=== PATIENT | male | born 1945 | race Caucasian/White ===

== ENCOUNTER → 2016-08-23 | Outpatient (CLI) | payer OTHER, MEDICARE ==
[~2016-08-23] MED LIST: ALBUAER2 INH; ALLO1TAB51 PO; ASPEC325 PO; ASPI81TA28 PO; BUME1TAB PO; CALCTAB5 PO; CLR10 PO; CRS20 PO; FRRG PO; GLUCTAB7 PO; HYDR-3419 PO; HYDR25TA4 PO; IRON1TAB4 PO; JNV100 PO; LSN40 PO; MAGN400T6 PO; METF-384 PO; METO1TAB70 PO; MULT-506 PO; NAPR1TAB9 PO; NRV/5 PO; OMEG10002 PO; PIOG1TAB20 PO; PLMIN90 IN; PRLSR20 PO; RANI300T PO; SILD100T PO; SRVDIN60 INH; WARF1TAB PO; WARF7.5T PO
--- NOTE | 2016-08-23 11:19 | DIAGNOSTIC IMAGING REPORT ---
CT OF THE CHEST WITHOUT IV CONTRAST CLINICAL HISTORY: Chronic obstructive pulmonary disease. Dyspnea on exertion. COMPARISON STUDY: Chest CT September 10, 2014. CT DOSE: 733.84 mGy.cm TECHNIQUE: Axial images of the chest were obtained without IV contrast. Images were reviewed in the axial, sagittal, and coronal planes. IV contrast was not administered for this examination. FINDINGS: A few mildly enlarged partially calcified mediastinal lymph nodes are similar to exam of September 10, 2014. An index prevascular node measures 1.1 cm in short axis diameter. An index subcarinal lymph node measures 1.3 cm. Note is made of asymmetric thickening of the medial wall of the right bronchus intermedius shown best on axial image 145 of 331. In retrospect, this may been present on prior exam. There is moderate coronary artery calcification. The gallbladder is surgically absent. Borderline splenomegaly is unchanged. Mild dilatation of the common bile duct is unchanged. A few prominent paraesophageal lymph nodes are unchanged. A small pericardial effusion is decreased in size when compared to study of September 10, 2014. The central airways are patent. No consolidation is identified to suggest pneumonia. Numerous tiny calcified and noncalcified subpleural nodules are unchanged since prior CT. These are benign. No new nodules are identified. No pneumothorax or pleural effusion is present. Linear and groundglass opacities within the lower lungs favor atelectasis. IMPRESSION: 1. Mild asymmetric wall thickening of the medial wall the right bronchus intermedius. In retrospect, this was likely present on prior exam of September 10, 2014. This could be further evaluated by bronchoscopy. 2. No acute intrathoracic findings. 3. Stable mild mediastinal lymphadenopathy which may be related to a prior granulomatous process. 4. Small pericardial effusion, decreased in size since prior exam. Electronically signed by: Darian Patel M.D. 08/23/2016 11:17 AM Dictated Date/Time: 08/23/2016 11:07 AM
== END | disposition home or self-care (01) ==
LOC: C.CTS 10:42
PROVIDERS: ATTEND Internal Medicine Critical Care Medicine
DX: R06.09 Other forms of dyspnea (principal)

== ENCOUNTER → 2016-09-01 | Outpatient (CLI) | payer OTHER, MEDICARE ==
[2016-09-01 17:13] LABS: INR 1.1 (0.9-1.1); PARTIAL THROMBOPLASTIN RATIO 1.2; PROTHROMBIN TIME (PATIENT) 11.9 SECONDS (9.0-12.0)
[2016-09-01 17:35] LABS: ALT/SGPT 29 U/L (12-78); BLOOD UREA NITROGEN 23 mg/dl (7-18); BUN/CREATININE RATIO 25.1 (10-20); CALCIUM 9.6 mg/dl (8.5-10.1); CARBON DIOXIDE 25 mmol/L (21-32); CHLORIDE 104 mmol/L (98-107); CREATININE 0.93 mg/dl (0.60-1.40); GLUCOSE 154 mg/dl (70-99); SODIUM 141 mmol/L (136-145)
[2016-09-01 17:38] LABS: ALB/GLOB RATIO 1.3 (0.9-2); ALKALINE PHOSPHATASE 66 U/L (45-117); AST/SGOT 15 U/L (15-37)
[2016-09-01 17:54] LABS: BASO % 0.2 %; BASO ABS # 0.01 K/uL (0-0.2); COMPLETE YES; HEMATOCRIT 42.2 % (42-52); IG% 0.3 %; LYMPH % 28.7 %; LYMPH ABS # 1.88 K/uL (1.2-3.4); MEAN CORPUSCULAR HEMOGLOBIN 29.9 pg (25-34); MEAN CORPUSCULAR HGB CONC 34.4 g/dl (32-36); MEAN PLATELET VOLUME 10.1 fL (7.4-10.4); MONO % 12.5 %; NEUT % 56.3 %; PLATELET COUNT 210 K/uL (130-400); RED BLOOD COUNT 4.85 M/uL (4.7-6.1); WHITE BLOOD COUNT 6.56 K/uL (4.8-10.8)
== END | disposition home or self-care (01) ==
LOC: C.LABBC 15:15
PROVIDERS: ATTEND Internal Medicine Critical Care Medicine
DX: R06.09 Other forms of dyspnea (principal)

== ENCOUNTER → 2016-09-06 | Day surgery (SDC) | payer OTHER, MEDICARE ==
[2016-09-06] VITALS (15 sets, daily range): BP systolic 123–164; BP diastolic 71–99; PULSE 68–83; TEMP 36.4–36.7; O2SAT 93–99; Ht 177.8 cm; Wt 109.0 kg
[~2016-09-06] VITALS: Ht 177.8 cm; Wt 109.0 kg
[~2016-09-06] MED LIST changes: +FENTANYL CITRATE 50 MCG/1 ML 20 ML AMP IV ONE; +FENTANYL CITRATE INJ 50 MCG/1 ML 2 ML VIAL IV ONE; +METOPROLOL SUCC 50MG EXT REL TAB PO STA; +MIDAZOLAM HCL 1 MG/ML 2ML VIAL IV ONE; +MIDAZOLAM HCL 5 MG/ML 1 ML VIAL IV ONE; +NURSING VERBAL MED ORDER ONE; +WARFARIN SOD 5 MG TAB PO ONE
--- NOTE | 2016-09-06 09:07 | Procedure Note ---
Pre-Mod Sedation Assessment General Date of Moderate Sedation: Sep 06, 2016. Vital Signs: Vital Signs Past 12 Hours Date Time Temp Pulse Resp B/P Pulse Ox O2 Delivery O2 Flow Rate FiO2 09/06/16 07:53 36.4 74 20 160/94 95 Room Air Review Cardiovascular: regular rate, rhythm, no edema, no gallop, no JVD, no murmur, normal peripheral pulses Abdomen: normal bowel sounds, non tender, soft, no organomegaly, no pulsatile mass, normal rectal exam, occult blood negative Lungs: chest non-tender, lungs clear, normal breath sounds, no respiratory distress, no accessory muscle use Airway Class: II Pre-Sedation Airway Assessment Oral Cavity: Capped Teeth, WNL Able to Visualize Vocal Cords: No Short Thick Neck: Yes Hx of Sleep Apnea: No Smoking Status: Former Smoker Mallampati Classification: Class II (Sft palate,uvula,fauces visib.) ASA Classification: Class II Procedure Planning Contraindications-for Mod Sed: None Yes Notes Patient was brought in for bronchoscopy was given to Versed and 25 g of fentanyl. At that time and he was noted to go into atrial fibrillation. Patient was hemodynamically stable saturating well showing no signs of compromise. EKG was obtained he had his chronic left bundle branch block but atrial fibrillation was noted. This EKG was reviewed/compared to previous ones. This is news onset atrial fibrillation. [facility] mental health program specialist Dr. Joseph Kang has been consultative.
--- NOTE | 2016-09-06 09:07 | History and Physical ---
History & Physical Date Sep 06, 2016. History of Present Illness The patient is a 71 year old male with complaints of Chronic cough: After reviewing patient's pulmonary function tests since 2003 there have been no dramatic changes and his most recent ones from 11/11/2015 only show mild obstructive ventilatory disease. He does have a diagnosis of laryngeal pharyngeal reflux which could create is issue of chronic cough but previous CT does show mucus impaction of the bronchus intermedius. At this time I suggest we move forward with bronchoscopy for evaluation of anatomical as well as possible microbiologic abnormalities. Past Medical/Surgical History Medical Problems: (1) CAD (coronary artery disease) (2) COPD, mild (3) Diabetes mellitus (4) Dyslipidemia (5) GERD (gastroesophageal reflux disease) (6) HTN (hypertension) (7) LBBB (left bundle branch block) (8) Left Knee DJD (9) SRAVANTHI (obstructive sleep apnea) Surgical Problems: (1) History of appendectomy (2) History of carpal tunnel release of both wrists (3) History of cataract extraction with lens replacement (4) History of cholecystectomy (5) Hx of arthroscopic knee surgery (6) Total knee replacement status Additional History Hepatic Disease: No Endocrine Disorder: No Kidney Disease: No Hypertension: Yes Heart Disease: Yes Bleeding Tendencies: No Infectious Diseases: No Allergies Coded Allergies: Sulfa Antibiotics (Verified Allergy, Intermediate, HIVES, 09/06/16) Home Medications Scheduled Albuterol (Ventolin), 2 PUFFS INH QID PRN Allopurinol (Allopurinol), 100 MG PO BID Amlodipine Besylate (Amlodipine Besylate), 5 MG PO QAM Aspirin (Aspirin Ec), 81 MG PO DAILY Budesonide (Inhaler) (Pulmicort Flexhaler), 1 PUFF IN BID Calcium (Caltrate), 600 MG PO QAM Rqvoftzaukh-Yjowlslcaqq-Ymd C- (Glucosamine Chondroitin), 1 TAB PO QAM Hydrochlorothiazide (Hctz), 25 MG PO QAM Iron W/ Vitamins (Geritol Complete), 1 TAB PO HS Lisinopril (Lisinopril), 40 MG PO QAM Magnesium Oxide (Mag-Ox), 400 MG PO HS Metformin Hcl (Glucophage), 1,000 MG PO BID Metoprolol Succinate (Toprol Xl), 200 MG PO QAM Multivitamin (Multivitamin), 1 TAB PO QAM Naproxen (Aleve), 220 MG PO HS Naproxen (Aleve), 440 MG PO QAM [place]-3 Fatty Acids (Fish Oil), 1 TAB PO BID Omeprazole (Prilosec), 20 MG PO BID Pioglitazone Hcl (Pioglitazone Hcl), 45 MG PO QAM Ranitidine Hcl (Zantac), 300 MG PO HS Rosuvastatin Calcium (Crestor), 20 MG PO QAM Salmeterol Xinafoate (Serevent Diskus), 2 PUFF INH BID Sildenafil Citrate (Viagra), 100 MG PO PRN Sitagliptin (Januvia), 100 MG PO QAM Scheduled PRN Loratadine (Claritin), 10 MG PO QAM PRN for PRN Physical Examination Skin: warm/dry, no rash Eyes: normal inspection, EOMI, sclerae normal ENT: normal ENT inspection, pharynx normal Head: normocephalic, atraumatic Neck: supple, no adenopathy, trachea midline Respiratory/Chest: lungs clear, normal breath sounds, no respiratory distress Cardiovascular: regular rate, rhythm, no edema, no murmur Abdomen / GI: normal bowel sounds Back: normal inspection Extremities: normal inspection Genitourinary - Male: normal male genitalia, normal phallus Neurologic/Psych: no motor/sensory deficits, alert, normal reflexes, oriented x 3 Diagnosis Chronic Cough ASA Classification: ASA Class II Plan of Treatment Bronchoscopy with BAL sent for evaluation
--- NOTE | 2016-09-06 10:30 | Procedure Note ---
Post-Moderate Sedation Plan General Date of Moderate Sedation Sep 06, 2016. Vital Signs: Vital Signs Past 12 Hours Date Time Temp Pulse Resp B/P Pulse Ox O2 Delivery O2 Flow Rate FiO2 09/06/16 10:15 81 18 149/94 93 Nasal Cannula 4.0 Mask 09/06/16 10:10 80 18 152/92 94 Nasal Cannula 4.0 Mask 09/06/16 10:05 83 18 135/81 95 Nasal Cannula 4.0 Mask 09/06/16 10:00 83 18 147/93 99 Mask 5.0 09/06/16 09:55 68 18 142/85 99 Mask 5.0 09/06/16 09:50 68 18 149/87 99 Mask 5.0 09/06/16 09:39 72 18 164/99 99 Mask 5.0 09/06/16 07:53 36.4 74 20 160/94 95 Room Air Review - Discharge Plan Post Moderate Sedation Plan: Patient was noted to go into atrial fibrillation at the beginning of the procedure. Bronchoscopy was not performed the patient was given 2 of Versed and 25 g of fentanyl. Patient is hemodynamically stable showing no signs of respiratory insufficiency. He has not have any active complaints at this time is for his chest pain or shortness of breath. The bronchoscopy was discontinued and Dr. Du Dickey from the cardiology department has been counseled.
--- NOTE | 2016-09-06 13:36 | Discharge Instructions ---
Discharge Instructions Admission Reason for Admission: Dyspnea, Copd Discharge Discharge Diagnosis / Problem: atrial fibrillation: Part of the procedure the patient went into atrial fib Discharge Goals Goal(s): Diagnostic testing Activity Recommendations Activity Limitations: resume your previous activity . Instructions / Follow-Up Instructions / Follow-Up At this time Dr. Delgado from the cardiology department has seen the patient. He gave the patient metoprolol, and 5 mg of Coumadin. Is also set up for repeat INR evaluation as well as cardiology follow-up for new onset atrial fibrillation. Current Hospital Diet Patient's current hospital diet: Discharge Diet Recommended Diet: Regular Diet Procedures Procedures Performed: No procedure performed is patient went into atrial fibrillation Pending Studies Studies pending at discharge: no (none) Medical Emergencies . Who to Call and When: Medical Emergencies: If at any time you feel your situation is an emergency, please call 911 immediately. . Non-Emergent Contact Non-Emergency issues call your: Solid Die Cutter, Social Worker Palliative Care Call Non-Emergent contact if: temperature is above 101.5 . . "Provider Documentation" section prepared by Chele Bello. VTE Core Measure Inpt VTE Proph given/why not?: Warfarin (Coumadin) (initiated by cardiology because of new onset atrial fibrillation)
--- NOTE | 2016-09-06 13:41 | CARDIOLOGY CONSULTATION ---
DATE OF CONSULTATION: 09/06/2016 PRIMARY HEATING TECHNICIAN: Jono Morejon DO. HISTORY OF PRESENT ILLNESS: Jackelin Lopez is a 71-year-old male seen in cardiology consultation per the request of Dr. Chele Bello for the evaluation of newly recognized atrial fibrillation. The patient presented for an outpatient bronchoscopy for followup of recent dyspnea. Recent cardiac evaluation included a nonischemic pharmacologic nuclear stress test in May 2016. The patient arrived today for the bronchoscopy. He had held his morning medications including metoprolol succinate 200 mg daily. He was being sedated for the bronchoscopy, and on the rhythm monitor, it was noted that he had an irregular rhythm. The procedure was terminated. A 12-lead EKG performed on 09/06/2016 at 10:05 a.m. revealed the presence of atrial fibrillation at 80 beats per minute. A left bundle branch block was present, which is a chronic finding. In comparison to a prior EKG performed as an outpatient at [facility] dated 07/13/2016, sinus rhythm had been noted in June with first degree AV block and left bundle branch block. I was asked to see the patient in order to determine next step of treatment and to arrange followup. An EKG was performed at 12:53 p.m. and confirmed that the atrial fibrillation was still present at 69 beats per minute. Atrial fibrillation was also present on his bedside monitor. The patient notes that his cough and exertional shortness of breath has been relatively unchanged over the last 2 months. He has no subjective sensation of palpitations. PAST MEDICAL HISTORY: 1. Coronary artery disease by cardiac catheterization in 2005 revealing branch vessel CAD with 80% stenosis of the first diagonal and luminal irregularities of the LAD and second diagonal with ectatic dilatation of the left circumflex and OM. The left posterolateral branch had a 40% stenosis and distal ectatic changes. 2. COPD. 3. Obstructive sleep apnea for which he is on CPAP. 4. Hypertension. 5. Dyslipidemia. 6. Diabetes. 7. Chronic left bundle branch block. PAST SURGICAL HISTORY: 1. Left knee replacement June 2015. 2. Carpal tunnel surgery. 3. Colonoscopy. 4. EGD. 5. Cataract extraction. 6. Cardiac catheterization as noted above. SOCIAL HISTORY: The patient is . He has 5 children. His spouse and his daughter are at the bedside keeping him company. He is a former smoker having quit in 1989, he smoked 1 pack per day for 3 years. He quit smokeless tobacco in 1971. FAMILY HISTORY: Father had a black lung. ALLERGIES: No known past history regarding the mother's history. COMPREHENSIVE REVIEW OF SYSTEMS: A 10-point review of systems reviewed and is negative with the exception of that noted above. In addition, the patient notes no recent problems with blood per rectum or with bleeding when he urinates. He has tripped in the past but has had no recent falls. No recent dizziness. PHYSICAL EXAMINATION: VITAL SIGNS: Temperature 36.6, heart rate 69, blood pressure 144/83, respiratory rate 18 breaths per minute, pulse oximetry 95% on room air. GENERAL APPEARANCE: Awake and oriented x3, no acute distress. HEENT: Extraocular muscles were intact. Pupils equal and reactive to light. NECK: No bruits or cervical lymphadenopathy. CARDIOVASCULAR: Irregular rhythm. No murmurs. ABDOMEN: Positive bowel sounds. Soft, nontender, nondistended. EXTREMITIES: No clubbing, cyanosis or edema. NEUROLOGIC: No focal deficits. DIAGNOSTIC DATA: EKG tracings performed on a serial basis as outlined above. Recent blood work performed on 09/01/2016 revealed a hemoglobin of 14.5, platelet count of 210. INR 1.1, PT 11.9, PTT 29.9. Sodium 141, BUN 23, creatinine 0.93, AST 15, ALT 19. FINAL IMPRESSION: A 71-year-old male: 1. Newly recognized atrial fibrillation, controlled ventricular rate, asymptomatic with no subjective symptoms of an irregular heartbeat. 2. Longstanding history of hypertension, medications include metoprolol succinate 200 mg daily, which was held this morning. 3. Recent dyspnea on exertion for which bronchoscopy had been planned today. 4. History of branch vessel coronary artery disease, nonischemic nuclear stress test 2015. 5. History of preserved left ventricular ejection fraction, chronic left bundle branch block. RECOMMENDATIONS: At present time, I recommend administering the patient's home dose of metoprolol succinate 200 mg daily, which had been held this morning. Given his atrial fibrillation plus stroke risk factors of age over 65, history of hypertension, history of diabetes, recommend stroke prophylaxis. We discussed proceeding with Coumadin versus the direct oral anticoagulant class of medications. Due to cost concerns, the patient elects to proceed with Coumadin which he had tolerated well after his knee replacement in the past. His INR was normal several days ago in preparation of the bronchoscopy, therefore we will start 5 mg of Coumadin. The patient is going to be referred to the [facility] anticoagulation clinic and will have a follow up INR, later this week. Case was discussed with Dr. Bello. I also discussed the case with Dr. Morejon in the office, and have requested follow up with our cardiology group with Dr. Morejon or perhaps a PA, if Dr. Morejon is unavailable in 1-2 weeks' time. LUIS ARMANDO
== END | disposition home or self-care (01) ==
LOC: C.ACU 07:03
PROVIDERS: ATTEND Internal Medicine Critical Care Medicine
DX: Z53.09 Procedure and treatment not carried out because of other contraindication (principal); I48.91 Unspecified atrial fibrillation; R05 Cough; K21.9 Gastro-esophageal reflux disease without esophagitis; I25.10 Atherosclerotic heart disease of native coronary artery without angina pectoris; J44.9 Chronic obstructive pulmonary disease, unspecified; E11.9 Type 2 diabetes mellitus without complications; E78.5 Hyperlipidemia, unspecified; I10 Essential (primary) hypertension; G47.33 Obstructive sleep apnea (adult) (pediatric); M17.12 Unilateral primary osteoarthritis, left knee; Z90.89 Acquired absence of other organs; Z90.49 Acquired absence of other specified parts of digestive tract; Z96.659 Presence of unspecified artificial knee joint; Z88.2 Allergy status to sulfonamides; Z79.82 Long term (current) use of aspirin

== ENCOUNTER → 2016-10-19 | Outpatient (CLI) | payer OTHER, MEDICARE ==
[~2016-10-19] MED LIST changes: -ASPEC325 PO; -FENTANYL CITRATE 50 MCG/1 ML 20 ML AMP IV ONE; -FENTANYL CITRATE INJ 50 MCG/1 ML 2 ML VIAL IV ONE; -FRRG PO; +METO-648 PO; -METO1TAB70 PO; -METOPROLOL SUCC 50MG EXT REL TAB PO STA; -MIDAZOLAM HCL 1 MG/ML 2ML VIAL IV ONE; -MIDAZOLAM HCL 5 MG/ML 1 ML VIAL IV ONE; -NURSING VERBAL MED ORDER ONE; -WARFARIN SOD 5 MG TAB PO ONE
--- NOTE | 2016-10-19 13:25 | DIAGNOSTIC IMAGING REPORT ---
ORBIT RADIOGRAPHS 3 VIEWS HISTORY: pre-MRI screening. COMPARISON: None FINDINGS: No radiopaque intraorbital foreign bodies are visualized. There is a tiny radiopaque foreign body within the right frontal scalp. There is a second radiopaque foreign body projected over the right inferior maxillary region. This is not visualized in the lateral view. IMPRESSION: No radiopaque foreign bodies identified within the orbits. Electronically signed by: Freddie Mccann M.D. 10/19/2016 1:23 PM Dictated Date/Time: 10/19/2016 1:22 PM
--- NOTE | 2016-10-19 14:31 | DIAGNOSTIC IMAGING REPORT ---
LUMBAR SPINE MRI HISTORY: Pain LUMBAR STENOSIS TECHNIQUE: Multiplanar multisequence MRI of the lumbar spine was performed without the use of contrast. COMPARISON: None. FINDINGS: For the purpose of the report the L5-S1 disc space will be located on axial image 23 of 25. Findings of considerable degenerative disc change L2-L3. There is reactive bone marrow edema of the inferior endplate of L2 as well as superior endplate of L3. This potentially represents posttraumatic deterioration, with discitis Unlikely L1-L2: No significant central canal or neural foraminal narrowing. L2-L3: Broad-based posterior extradural defect comprised primarily of disc material and less prominently of posterior osteophytic material. This creates mild anterior to posterior dimension narrowing of the spinal canal as well as significant bilateral foraminal stenotic change. There is no associated surrounding paravertebral soft tissue mass. L3-L4: Mild broad-based disc bulge. Minimal narrowing right neural foramina. L4-L5: Moderate multifactorial spinal stenosis. Mild narrowing neuroforamina bilaterally. L5-S1: Hypertrophic changes of posterior elements and facets creating transverse moderate narrowing of the spinal canal. Broad-based bulging disc is accentuated all findings with moderate to significant narrowing of the right neuroforamina. Left neural foramina is patent. IMPRESSION: 1. Severe degenerative disc change L2-L3 with reactive bone marrow edema of the adjacent vertebral endplates 2. Posterior extradural defect at L2-L3. Mild to moderate narrowing of the spinal canal as well as significant bilateral foraminal stenosis. 3. Moderate multifactorial spinal stenosis L4-L5 with mild narrowing of the neuroforamina bilaterally. 4. Transverse narrowing of the spinal canal L5-S1 secondary to hypertrophic change of the posterior elements. Mild broad-based disc bulge has accentuated all findings Electronically signed by: Isaiah Ward M.D. 10/19/2016 2:30 PM Dictated Date/Time: 10/19/2016 2:18 PM
== END | disposition home or self-care (01) ==
LOC: C.RADBC 12:55
PROVIDERS: ATTEND Orthopaedic Surgery Orthopaedic Surgery of the Spine
DX: M48.06 Spinal stenosis, lumbar region (principal); M47.816 Spondylosis without myelopathy or radiculopathy, lumbar region

== ENCOUNTER → 2016-10-28 | Day surgery (SDC) | payer OTHER, MEDICARE ==
[~2016-10-28] VITALS: Ht 177.8 cm; Wt 104.5 kg
[~2016-10-28] MED LIST changes: +DEXAMETHASONE SOD INJ 4 MG/ML VIAL ONE; +LIDOCAINE HCL 1% MPF 5 ML VIAL ONE
[2016-10-28 07:25] VITALS: Ht 177.8 cm; Wt 104.5 kg
--- NOTE | 2016-10-28 07:50 | History & Physical Bridge - SC ---
H&P Re-Evaluation Bridge Note: I have examined the patient, reviewed the History & Physical and in the interval since the performance of the History & Physical I have noted the following changes of clinical significance: No changes noted
[2016-10-28 08:10] VITALS: BP 152/82; PULSE 62; TEMP 36.6; O2SAT 95
--- NOTE | 2016-10-28 08:11 | Discharge Instructions ---
Discharge Instructions Date of Service Oct 28, 2016. Admission Reason for Admission: Lumbosacral Spondylosis Without Myelopathy Discharge Discharge Diagnosis / Problem: stenosis Discharge Goals Goal(s): Improve function Activity Recommendations Activity Limitations: resume your previous activity . Current Hospital Diet Patient's current hospital diet: Discharge Diet Recommended Diet: Regular Diet Procedures Procedures Performed: Facet Joinr Injections, Bilaterally L5-S1 Pending Studies Studies pending at discharge: no Medical Emergencies . Who to Call and When: Medical Emergencies: If at any time you feel your situation is an emergency, please call 911 immediately. . Non-Emergent Contact Non-Emergency issues call your: Surgeon . "Provider Documentation" section prepared by Roscoe Martínez. VTE Core Measure Inpt VTE Proph given/why not?: Treatment not indicated
--- NOTE | 2016-10-28 08:12 | [facility] Post Operative Brief Note ---
Immediate Operative Summary Operative Date Oct 28, 2016. Pre-Operative Diagnosis Low Back Pain w/ Lower Extremity Difficulty Post-Operative Diagnosis same Procedure(s) Performed Facet Joinr Injections, Bilaterally L5-S1 Surgeon Dr. Braden Martínez. Residential Property Consultant Surgeon(s) 0 Findings arthritis
--- NOTE | 2016-10-28 08:23 | OPERATIVE REPORT ---
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 POSTOPERATIVE DIAGNOSIS: Same. PROCEDURE: Included facet joint injections, lumbar spine L5-S1. SURGEON: Dr. Martínez. ANESTHETIC: Local. COMPLICATIONS: Zero. BLOOD LOSS: Zero. PROCEDURE: The patient was taken to the minor procedure room at the surgical center here at [facility], prepped and draped sterile. I advanced the 22 gauge spinal needle out to the facet joints bilaterally L5-S1. One mL of Decadron injected without incident. There were no apparent complications. Needle was withdrawn. The patient returned to PACU improved stable condition. I attest to the content of the Intraoperative Record and any orders documented therein. Any exceptio ns are noted below.
== END | disposition home or self-care (01) ==
LOC: X.SURG 06:31
PROVIDERS: ATTEND Orthopaedic Surgery Orthopaedic Surgery of the Spine
DX: M47.817 Spondylosis without myelopathy or radiculopathy, lumbosacral region (principal); I10 Essential (primary) hypertension; E11.9 Type 2 diabetes mellitus without complications; E78.5 Hyperlipidemia, unspecified; Z83.3 Family history of diabetes mellitus; Z96.659 Presence of unspecified artificial knee joint; Z98.890 Other specified postprocedural states

== ENCOUNTER → 2016-11-09 | Outpatient (CLI) | payer OTHER, MEDICARE ==
[~2016-11-09] MED LIST changes: -ASPI81TA28 PO; -DEXAMETHASONE SOD INJ 4 MG/ML VIAL ONE; -HYDR25TA4 PO; -IRON1TAB4 PO; -LIDOCAINE HCL 1% MPF 5 ML VIAL ONE; -NAPR1TAB9 PO; -NRV/5 PO; -RANI300T PO
[2016-11-09 11:07] LABS: BASO % 0.2 %; BASO ABS # 0.01 K/uL (0-0.2); COMPLETE YES; EOS % 1.9 %; HEMATOCRIT 45.2 % (42-52); IG% 0.3 %; LYMPH % 25.3 %; LYMPH ABS # 1.58 K/uL (1.2-3.4); MEAN CELL VOLUME 89.5 fL (80-100); MEAN CORPUSCULAR HEMOGLOBIN 29.7 pg (25-34); MEAN CORPUSCULAR HGB CONC 33.2 g/dl (32-36); MEAN PLATELET VOLUME 10.4 fL (7.4-10.4); MONO % 12.8 %; NEUT % 59.5 %; PLATELET COUNT 231 K/uL (130-400); RED BLOOD COUNT 5.05 M/uL (4.7-6.1); WHITE BLOOD COUNT 6.25 K/uL (4.8-10.8)
[2016-11-09 11:19] LABS: INR 2.4 (0.9-1.1); PARTIAL THROMBOPLASTIN RATIO 1.5; PROTHROMBIN TIME (PATIENT) 26.1 SECONDS (9.0-12.0)
[2016-11-09 14:42] LABS: ALT/SGPT 26 U/L (12-78); BLOOD UREA NITROGEN 20 mg/dl (7-18); BUN/CREATININE RATIO 22.2 (10-20); CARBON DIOXIDE 28 mmol/L (21-32); CHLORIDE 104 mmol/L (98-107); CREATININE 0.89 mg/dl (0.60-1.40); GLUCOSE 121 mg/dl (70-99); SODIUM 141 mmol/L (136-145)
[2016-11-09 14:45] LABS: ALB/GLOB RATIO 1.1 (0.9-2); ALKALINE PHOSPHATASE 66 U/L (45-117); AST/SGOT 14 U/L (15-37)
== END | disposition home or self-care (01) ==
LOC: C.LABBC 09:11
PROVIDERS: ATTEND Internal Medicine Critical Care Medicine
DX: J44.9 Chronic obstructive pulmonary disease, unspecified (principal); R05 Cough; R06.09 Other forms of dyspnea

== ENCOUNTER → 2016-11-22 | Day surgery (SDC) | payer OTHER, MEDICARE ==
[2016-11-22] VITALS (13 sets, daily range): BP systolic 125–190; BP diastolic 62–95; PULSE 55–67; TEMP 36.4–36.6; O2SAT 94–99; Ht 177.8 cm; Wt 90.0 kg
[~2016-11-22] VITALS: Ht 177.8 cm; Wt 90.0 kg
[~2016-11-22] MED LIST changes: +FENTANYL CITRATE INJ 50 MCG/1 ML 2 ML VIAL IV ONE; +FENTANYL CITRATE INJ 50 MCG/1 ML 2 ML VIAL IV SCH; +LIDOCAINE 4% W/AFRIN NASAL SOLN 4ML ONE; +LIDOCAINE HCL 2% LOCAL 50ML VIAL INFIL ONE; +MIDAZOLAM HCL 5 MG/ML 1 ML VIAL IV ONE; +MIDAZOLAM HCL 5 MG/ML 1 ML VIAL IV SCH; +NURSING VERBAL MED ORDER ONE
--- NOTE | 2016-11-22 06:41 | History and Physical ---
History & Physical Date November 22, 2016. Chief Complaint 71-year-old gentleman here for follow-up on chronic dyspnea with abnormal CT of the throax: History of Present Illness The patient is a 71 year old male with complaints of chronic dyspnea with abnormal CT of the throax: Patient has mild obstructive ventilatory disease with last FEV1 of 91% predicted (11/11/2015), atrial fibrillation rate controlled and on Coumadin. He continues to note dyspnea and has CT of the thorax notes thickening of the BI and mild mediastinal lymphadenopathy. Past Medical/Surgical History Medical Problems: (1) CAD (coronary artery disease) (2) COPD, mild (3) Diabetes mellitus (4) Dyslipidemia (5) GERD (gastroesophageal reflux disease) (6) HTN (hypertension) (7) LBBB (left bundle branch block) (8) Left Knee DJD (9) SRAVANTHI (obstructive sleep apnea) Surgical Problems: (1) History of appendectomy (2) History of carpal tunnel release of both wrists (3) History of cataract extraction with lens replacement (4) History of cholecystectomy (5) Hx of arthroscopic knee surgery (6) Total knee replacement status Additional History Hepatic Disease: No Endocrine Disorder: Yes Kidney Disease: No Hypertension: Yes Heart Disease: Yes (A-fib) Bleeding Tendencies: Yes (Coumadin treatment ) Infectious Diseases: No Allergies Coded Allergies: Sulfa Antibiotics (Verified Allergy, Intermediate, HIVES, 10/28/16) Home Medications Scheduled Albuterol (Ventolin), 2 PUFFS INH QID PRN Allopurinol (Allopurinol), 100 MG PO BID Budesonide (Inhaler) (Pulmicort Flexhaler), 1 PUFF IN BID Calcium (Caltrate), 600 MG PO QAM Vymnknxmkwn-Orutqlfrsai-Tjt C- (Glucosamine Chondroitin), 1 TAB PO QAM Lisinopril (Lisinopril), 40 MG PO QAM Magnesium Oxide (Mag-Ox), 400 MG PO HS Metformin Hcl (Glucophage), 1,000 MG PO BID Metoprolol Succinate (Toprol Xl), 200 MG PO QAM Multivitamin (Multivitamin), 1 TAB PO QAM [place]-3 Fatty Acids (Fish Oil), 1 TAB PO BID Omeprazole (Prilosec), 20 MG PO BID Pioglitazone Hcl (Pioglitazone Hcl), 45 MG PO QAM Rosuvastatin Calcium (Crestor), 20 MG PO QAM Salmeterol Xinafoate (Serevent Diskus), 2 PUFF INH BID Sildenafil Citrate (Viagra), 100 MG PO PRN Sitagliptin (Januvia), 100 MG PO QAM Warfarin Sodium (Coumadin), 1 TAB PO DAILY Scheduled PRN Hydrocodon/Acetaminophen 5MG/300MG (Vicodin (5MG/300MG)), 1 TAB PO Q4H PRN for Pain Loratadine (Claritin), 10 MG PO QAM PRN for PRN Miscellaneous Medications Bumetanide (Bumex), 1 MG PO Warfarin Sodium (Coumadin), 10 TAB PO Physical Examination Skin: warm/dry, no rash Eyes: normal inspection, EOMI, sclerae normal ENT: normal ENT inspection, pharynx normal Head: normocephalic, atraumatic Neck: supple, no adenopathy, trachea midline Respiratory/Chest: lungs clear, normal breath sounds, no respiratory distress Cardiovascular: + abnormal rate, + abnormal rhythm Abdomen / GI: normal bowel sounds, non tender Back: normal inspection Extremities: normal inspection, normal range of motion Neurologic/Psych: no motor/sensory deficits, alert, normal reflexes, oriented x [address] with associated FARRELL ASA Classification: ASA Class III Plan of Treatment Bronchoscopy with BAL
--- NOTE | 2016-11-22 09:24 | Procedure Note ---
Pre-Mod Sedation Assessment General Date of Moderate Sedation: November 22, 2016. Review Cardiovascular: no edema, no gallop, no JVD, no murmur, normal peripheral pulses, + irregularly irregular Abdomen: normal bowel sounds, non tender, soft, no organomegaly, no pulsatile mass, normal rectal exam, occult blood negative Lungs: chest non-tender, lungs clear, normal breath sounds, no respiratory distress, no accessory muscle use Pre-Sedation Airway Assessment Oral Cavity: WNL Able to Visualize Vocal Cords: Yes Short Thick Neck: Yes Hx of Sleep Apnea: Yes Smoking Status: Former Smoker Mallampati Classification: Class II ASA Classification: Class III Procedure Planning Contraindications-for Mod Sed: None Yes Notes The planned sedation has been discussed with the patient and consent obtained. I have identified the patient, determined the appropriateness of sedation and have assessed the patient immediately prior to the procedure. All medicine(s) and interventions are by my order.
--- NOTE | 2016-11-22 11:00 | Procedure Note ---
Post-Moderate Sedation Plan General Date of Moderate Sedation November 22, 2016. Vital Signs: Vital Signs Past 12 Hours Date Time Temp Pulse Resp B/P Pulse Ox O2 Delivery O2 Flow Rate FiO2 11/22/16 10:50 67 15 172/95 98 Room Air 4.0 Mask 11/22/16 10:45 67 15 169/95 98 Room Air 6.0 Mask 11/22/16 10:40 64 18 190/95 98 Room Air 6.0 Mask 11/22/16 10:35 65 19 170/95 98 Room Air 6.0 Mask 11/22/16 10:30 60 17 175/79 99 Room Air 6.0 Mask 11/22/16 10:25 67 16 125/88 97 Room Air 6.0 Mask 11/22/16 10:15 61 18 126/81 95 Room Air 6.0 Mask 11/22/16 09:07 36.6 61 18 163/62 95 Room Air Review - Discharge Plan Post Moderate Sedation Plan: On clinical assessment, the patient appears to have tolerated the conscious sedation without complications. Patient is recovering as anticipated. Patient will continue to be monitored by nursing and may be discharged when conscious sedation discharge criteria are met.
--- NOTE | 2016-11-22 11:00 | Bronchoscopy Procedure Note ---
Bronchoscopy Procedure Note Procedure: Bronchoscopy, conscious sedation, BAL RML Consent: Obtained through the patient placed into the chart Preprocedural diagnosis: abnormal CT thorax with dyspnea Postprocedural diagnosis: abnormal CT thorax with dyspnea Start time: 1034 End time: 1045 Total time: 10mins Analgesia: 2% liquid lidocaine: Via nebulizer 4% gel lidocaine: Via right naris 2% liquid lidocaine: Via bronchoscopy Sedation: Versed IV: 2mg Fentanyl IV: 50 g Procedure: The Olympus video bronchoscope was used for this procedure and initially passed through the right naris Right naris/posterior naris/posterior oropharynx: Anatomically within normal limits Glottis: Anatomically within normal limits but notable horse shoe anatomy Vocal cords: Proper abduction and abduction, anatomically within normal limits Subglottis: Anatomically within normal limits Trachea: with diffuse tracheal ring calcifications Adeline: Anatomically within normal limits Right bronchial tree: Right mainstem bronchus: Anatomically within normal limits Right upper lobe: Anatomically within normal limits Bronchus intermedius: diffuse bronchial ring calcifications with obstruction visually of the RML Right middle lobe: Anatomically within normal limits Right lower lobe: Anatomically within normal limits Findings: No significant findings noted Left bronchial tree: Left mainstem bronchus: Anatomically within normal limits Left upper lobe: Anatomically within normal limits Lingula: Anatomically within normal limits Left lower lobe: Anatomically within normal limits Findings: small bronchial ring calcifications at the take off of the LAURENT Bronchial alveolar lavage: 60cc RML EBL: none Complications: None Follow-up: [facility]
--- NOTE | 2016-11-22 11:02 | Discharge Instructions ---
Discharge Instructions Date of Service November 22, 2016. Admission Reason for Admission: Abn Ct; Dyspnea On Exertion; Copd; Chronic Cough Discharge Discharge Diagnosis / Problem: Tracheal bronchial ring calcifications Discharge Goals Goal(s): Diagnostic testing Activity Recommendations Activity Limitations: resume your previous activity . Instructions / Follow-Up Instructions / Follow-Up follow-up in the [facility] Current Hospital Diet Patient's current hospital diet: Discharge Diet Recommended Diet: Regular Diet Procedures Procedures Performed: Bronchoscopy with bronchial lavage of the right middle lobe and consicous sedation Pending Studies Studies pending at discharge: no Medical Emergencies . Who to Call and When: Medical Emergencies: If at any time you feel your situation is an emergency, please call 911 immediately. . Non-Emergent Contact Non-Emergency issues call your: Patch Setter Call Non-Emergent contact if: temperature is above 101.5 . . "Provider Documentation" section prepared by Chele Bello. . VTE Core Measure Inpt VTE Proph given/why not?: Warfarin (Coumadin)
== END | disposition home or self-care (01) ==
LOC: C.ACU 07:36
PROVIDERS: ATTEND Internal Medicine Critical Care Medicine
DX: R91.8 Other nonspecific abnormal finding of lung field (principal); J44.9 Chronic obstructive pulmonary disease, unspecified; I25.10 Atherosclerotic heart disease of native coronary artery without angina pectoris; E11.9 Type 2 diabetes mellitus without complications; K21.9 Gastro-esophageal reflux disease without esophagitis; E78.5 Hyperlipidemia, unspecified; I10 Essential (primary) hypertension; G47.33 Obstructive sleep apnea (adult) (pediatric); I48.91 Unspecified atrial fibrillation; Z79.01 Long term (current) use of anticoagulants

== ENCOUNTER → 2017-04-04 | Outpatient (CLI) | payer OTHER, MEDICARE ==
[~2017-04-04] MED LIST changes: -FENTANYL CITRATE INJ 50 MCG/1 ML 2 ML VIAL IV ONE; -FENTANYL CITRATE INJ 50 MCG/1 ML 2 ML VIAL IV SCH; -LIDOCAINE 4% W/AFRIN NASAL SOLN 4ML ONE; -LIDOCAINE HCL 2% LOCAL 50ML VIAL INFIL ONE; -METO-648 PO; +METO1TAB70 PO; -MIDAZOLAM HCL 5 MG/ML 1 ML VIAL IV ONE; -MIDAZOLAM HCL 5 MG/ML 1 ML VIAL IV SCH; -NURSING VERBAL MED ORDER ONE
[2017-04-04 13:36] LABS: HEMATOCRIT 41.1 % (42-52); MEAN CELL VOLUME 90.1 fL (80-100); MEAN CORPUSCULAR HEMOGLOBIN 30.7 pg (25-34); MEAN CORPUSCULAR HGB CONC 34.1 g/dl (32-36); MEAN PLATELET VOLUME 10.1 fL (7.4-10.4); PLATELET COUNT 266 K/uL (130-400); RED BLOOD COUNT 4.56 M/uL (4.7-6.1); WHITE BLOOD COUNT 5.85 K/uL (4.8-10.8)
== END | disposition home or self-care (01) ==
LOC: C.LABBC 11:03
PROVIDERS: ATTEND Orthopaedic Surgery Sports Medicine
DX: M25.469 Effusion, unspecified knee (principal); Z98.890 Other specified postprocedural states

== ENCOUNTER → 2017-04-06 | Outpatient (CLI) | payer OTHER, MEDICARE ==
[2017-04-06 17:22] LABS: SYNOVIAL FLUID APPEARANCE HAZY; SYNOVIAL FLUID COLOR YELLOW; SYNOVIAL FLUID MONONUC RELAT 60.5 %; SYNOVIAL FLUID POLYNUC RELAT 39.5 %
[2017-04-11 17:30] LABS: LYME DNA PCR CSF OR SYNOVIAL Not detected (Not Detected); LYME DNA SOURCE Synovial Fluid
== END | disposition home or self-care (01) ==
LOC: C.LABSPEC 13:51
PROVIDERS: ATTEND Orthopaedic Surgery Sports Medicine
DX: T84.89XA Other specified complication of internal orthopedic prosthetic devices, implants and grafts, initial encounter (principal); Y83.1 Surgical operation with implant of artificial internal device as the cause of abnormal reaction of the patient, or of later complication, without mention of misadventure at the time of the procedure

== ENCOUNTER 2019-05-31 11:10 | Inpatient (IN) ==
[2019-05-31] MEDS ORDERED: ASPIRIN CHEW 324 MG PO STA (12:11)
[2019-05-31 12:27] LABS: Basophils # (auto) 0.01 K/uL (0-0.2); Basophils % (auto) 0.2 %; Eosinophils # (auto) 0.05 K/uL (0-0.5); Eosinophils % (auto) 0.9 %; Hematocrit (blood only) 41.6 % (42-52); Hemoglobin 13.7 g/dL (14.0-18.0); Immature Granulocytes # (auto) 0.01 K/uL (0.00-0.02); Immature Granulocytes % (auto) 0.2 %; Lymphocytes # (auto) 1.33 K/uL (1.2-3.4); Lymphocytes % (auto) 22.7 %; Mean Corpuscular Hemoglobin 29.8 pg (25-34); Mean Corpuscular Hgb Conc 32.9 g/dL (32-36); Mean Corpuscular Volume 90.4 fL (80-100); Mean Platelet Volume 10.6 fL (7.4-10.4); Monocytes # (auto) 0.65 K/uL (0.11-0.59); Monocytes % (auto) 11.1 %; Neutrophils # (auto) 3.82 K/uL (1.4-6.5); Neutrophils % (auto) 64.9 %; Platelet Count 198 K/uL (130-400); White Blood Count 5.87 K/uL (4.8-10.8)
[2019-05-31] MEDS ORDERED: ALBUT/IPRATROP 3MG/0.5MG NEB 3 ML VIAL NEB STA (12:28)
[2019-05-31 12:36] LABS: Alanine Aminotransferase 32 U/L (12-78); Albumin Level 3.5 gm/dl (3.4-5.0); Aspartate Aminotransferase 21 U/L (15-37); BUN Creatinine Ratio 14.5 (10-20); Bilirubin Direct 0.2 mg/dl (0-0.2); Blood Urea Nitrogen 13 mg/dl (7-18); Carbon Dioxide 27 mmol/L (21-32); Chloride 105 mmol/L (98-107); Creatinine Clr Calc Pharmacy 82.9 ml/min; Est GFR (African American) 97.6; Est GFR (Non-African American) 84.2; Glucose 167 mg/dl (70-99); Lipase 87 U/L (73-393); Magnesium 1.6 mg/dl (1.8-2.4); Potassium 3.7 mmol/L (3.5-5.1); Sodium 140 mmol/L (136-145)
--- NOTE | 2019-05-31 12:36 | XRay Report ---
XR chest 1V portable HISTORY: 74 years-old Male Chest Pain acute atypical chest pain COMPARISON: Chest CT 08/23/2016 TECHNIQUE: Portable AP view of the chest FINDINGS: Cardiac silhouette is mildly enlarged. Mild bilateral hilar prominence appears unchanged. Patchy righ t greater than left bibasilar opacities are noted without pneumothorax, large pleural effusion or ove rt pulmonary edema. Ill-defined 2.7 cm opacity of the right lung base. Degenerative changes of the sh oulders and spine. Cholecystectomy. IMPRESSION: 1. Cardiomegaly without overt pulmonary edema. 2. Patchy right greater than left bibasilar opacities suggest atelectasis or pneumonitis. The above report was generated using voice recognition software. It may contain grammatical, syntax o r spelling errors. Electronically signed by: Shane Ackerman M.D. 05/31/2019 12:35 PM
[2019-05-31 12:41] LABS: D Dimer 210 ug/L FEU (0-500); Partial Thromboplastin Ratio 1.5
[2019-05-31 12:42] LABS: Alkaline Phosphatase 58 U/L (45-117); Bilirubin,Total 0.9 mg/dl (0.2-1); Total Protein 6.4 gm/dl (6.4-8.2); Troponin I < 0.015 ng/ml (0-0.045)
[2019-05-31 12:43] LABS: INR 5.3 (0.9-1.1)
[2019-05-31 12:49] LABS: Base Excess VBG 4.2 mEq/L; Oxygen Saturation VBG 70.9 %; pH VBG 7.46 (7.36-7.41)
[2019-05-31] MEDS ORDERED: FUROSEMIDE 40 MG/4 ML VIAL IV STA (13:03)
[2019-05-31] MEDS ORDERED: MAGNESIUM SULFATE / D5W 1 GM/100 ML BAG IV ONE (13:03)
--- NOTE | 2019-05-31 14:37 | History & Physical Report ---
Date of Service May 31, 2019 Assessment & Plan (1) Dyspnea on exertion: This is a 74-year-old with a PMH of paroxysmal atrial fibrillation on Coumadin, COPD, tracheobronchopathia osteochondroplastica, CAD, LBBB, DM II, SRAVANTHI on CPAP and other medical problems listed below who presents with progressive dyspnea on exertion x1 week. -Afebrile, hemodynamically stable. Oxygen saturation 95% on room air -No leukocytosis. BNP elevated thousand 227. Initial troponin negative -CXR with cardiomegaly without overt pulmonary edema. Patchy right greater than left bibasilar opacities suggest atelectasis or pneumonitis -Takes Bumex 1mg daily but no documented history of CHF -Given 40mg IV Lasix in ED. Strict I&Os, daily weight, monitor volume status closely. 2D echo ordered with routine cardiology consult -Monitor on telemetry, initially in rate controlled A-Fib. EKG unchanged. Trend troponin -Will cover with Doxycycline 100mg BID for possible aspiration pneumonitis (2) COPD, mild: Follows with [facility] -Recent PFTs in February 2019 showing mildly reduced FEV1/FVC ratio. Overall lung function has declined since PFTs in 2016 -No evidence of exacerbation on exam -Supplemental O2 PRN (3) Diabetes mellitus, type II: A1c of 7.3 in January 2019. Repeat a1c -Hold home agents -SSI while in-patient -BSG AC HS (4) HTN (hypertension): Normotensive -Continue amlodipine, Toprol, lisinopril (5) Paroxysmal A-fib: Initially in A Fib at 63 bpm -Continue Toprol -INR supratherapeutic at 5.3 on coumadin. Hold this afternoon's dose (6) CAD (coronary artery disease): No chest pain or EKG changes -Will trend troponin in setting of dyspnea on exertion -Continue statin, beta alfredito. Not on aspirin at home (7) GERD (gastroesophageal reflux disease): Continue PPI (8) Dyslipidemia: Continue statin (9) SRAVANTHI (obstructive sleep apnea): CPAP HS DVT Ppx: Supratherapeutic INR on coumadin. Will hold dose today. Code status: DNR per discussion with patient PCP: [place] Dispo: Admit to med tele. Plan to return home once medically stable. Patient seen in collaboration with Dr. Gallegos. Please see addendum. History of Present Illness Chief Complaint: Dyspnea on exertion Primary Care Provider: Roscoe Kaminski MD This is a 74-year-old with a PMH of paroxysmal atrial fibrillation on Coumadin, COPD, tracheobronchopathia osteochondroplastica, CAD, LBBB, DM II, SRAVANTHI on CPAP and other medical problems listed below who presents with progressive dyspnea on exertion x1 week. Patient went on a hunting trip 2 weeks ago in [place] and returned by 26 hour car ride. Once returned, he felt fatigued and unable to do his normal amount of daily activity. Later on that week, patient developed dyspnea on exertion and utilized his as needed home 2L O2. Today, patient was preparing to go hunting with his son when he felt poorly with worsening dyspnea on exertion and productive cough with clear sputum and was seen in clinic by Dr. Garcia. Denies any fever, chills, lightheadedness, near-syncope or visual changes. No chest pain, palpitations or wheezing. Denies any calf pain or swelling in distal extremities. Notes that he has gained 7 pounds since his hunting trip. 2D echo from September 2016 with moderate concentric LVH and preserved EF of 55-59%. Follows with [facility] pulmonary [facility] and underwent recent PFTs in February 2019 showing mildly reduced FEV1/FVC ratio. Overall lung function has declined since PFTs in 2016. Allergies Allergy/AdvReac Type Severity Reaction Status Date / Time Sulfa (Sulfonamide Allergy Intermediate HIVES Verified 05/20/19 11:45 Antibiotics) Home Medications Home Medications Medication Instructions Recorded Confirmed Type allopurinol 100 mg tablet 100 mg PO BID tab 03/08/19 05/31/19 History amlodipine 5 mg tablet 5 mg PO DAILY #90 tab 03/08/19 05/31/19 History bumetanide 1 mg tablet 1 mg PO DAILY tab 03/08/19 05/31/19 History calcium carbonate 600 mg calcium 600 mg PO BID tab 03/08/19 05/31/19 History (1,500 mg) tablet lisinopril 40 mg tablet 40 mg PO DAILY #90 tab 03/08/19 05/31/19 History magnesium oxide 400 mg (241.3 mg 400 mg PO DAILY tab 03/08/19 05/31/19 History magnesium) tablet metformin 1,000 mg tablet 1,000 mg PO BID #180 tab 03/08/19 05/31/19 History metoprolol succinate 200 mg 200 mg PO DAILY #90 tab 03/08/19 05/31/19 History tablet,extended release 24 hr omeprazole 20 mg capsule,delayed 20 mg PO DAILY cap 03/08/19 05/31/19 History release pioglitazone 45 mg tablet 45 mg PO DAILY tab 03/08/19 05/31/19 History rosuvastatin 20 mg tablet 20 mg PO DAILY #30 tab 03/08/19 05/31/19 History warfarin 7.5 mg tablet 7.5 mg PO DAILY@1600 #30 tab 03/08/19 05/31/19 History CPAP Machine #1 ea 03/11/19 05/31/19 Rx albuterol sulfate 90 mcg/actuation 2 puffs INHALATION Q4H PRN #18 gm 03/11/19 05/31/19 Rx aerosol inhaler miscellaneous medical supply #1 ea 03/11/19 05/31/19 Rx anrmsayceyc-pxdavlpub-nwe C-Mn 1 cap PO BID 05/31/19 05/31/19 History naproxen 187.5 mg PO DAILY PRN 05/31/19 05/31/19 History omega 4-tpy-deb-fish oil [Fish Oil] 1 cap PO DAILY 05/31/19 05/31/19 History sitagliptin [Januvia] 100 mg PO DAILY 05/31/19 05/31/19 History tobramycin 4 drp OPHTHALMIC (EYE) UD 05/31/19 05/31/19 History Past Med/Surg History Medical History Acute bronchitis Allergic rhinitis Chronic cough Diabetes mellitus Diabetes mellitus, type II (Chronic) Gout HTN (hypertension) Palpitations Paroxysmal A-fib Tracheobronchopathia-osteochondroplastica (Chronic) Surgical History History of appendectomy (Chronic) History of carpal tunnel release of both wrists (Chronic) History of cholecystectomy (Chronic) Hx of arthroscopic knee surgery (Chronic) "bilat by Dr. Thomas in 2001" Total knee replacement status (Chronic) "R total knee arthroplasty in 2011" Family History Other Heart disease Lung disease Social History Preferred Language: Ghanaian Communication Ability: Effective Tax Collector Required: No Beliefs That Will Affect Care: None Current Living Situation: Spouse Other Information That Helps Us Care for You: No Feels Safe at Home: Yes Safety Concerns: Feels Safe At This Time Smoking Status: Former smoker Do You Dip or Chew Tobacco: No ; Second Hand Exposure: No ; Tobacco Cessation Education Requested by Patient: No Hx Alcohol Use: No Hx Substance Use: No Review of Systems Review of Systems: At least ten systems reviewed and negative except as noted in the HPI. Physical Exam Physical Exam: General Appearance: WD/WN, vitals as above, NAD, sitting up in bed, pleasant, conversing easily Head: normocephalic, atraumatic Eyes: normal inspection, PERRL, conjunctivae normal, anicteric sclerae ENT: external ear and nose normal, oropharynx normal Neck: trachea midline, no thyromegaly normal visual inspection Respiratory: normal respiratory effort, bibasilar crackles, no wheeze or rhonchi. Normal insp/exp effort, no accessory muscle use Cardiovascular: Irregular rate and rhythm, no murmur appreciated, normal peripheral pulses, trace BLE edema. Vessels: no JVD Chest: normal inspection of chest Abdomen/GI: normal bowel sounds, soft, nontender, no hepatosplenomegaly Extremities/Musculoskelatal: no cyanosis or clubbing, extremities motor strength 5/5 Neurologic: PERRL, EOMI, accommodation nl, no face palsy, no dysarthria CN's II-XI intact bilaterally and moves all extremities Psychiatric: A+Ox3, euthymic affect Skin: no rashes, normal color, warm/dry Results & Data Vital Signs (Past 12 Hours) Vital Signs Temp Pulse Pulse Resp BP Pulse Ox 05/31/19 13:36 63 19 137/85 95 05/31/19 12:48 64 16 93 05/31/19 12:00 66 20 05/31/19 11:28 36.7 C 70 22 144/75 H 95 Laboratory Results Short CBC 05/31/19 05/31/19 05/31/19 Range/Units 11:57 11:57 11:57 WBC 5.87 (4.8-10.8) K/uL RBC 4.60 L (4.7-6.1) M/uL Hgb 13.7 L (14.0-18.0) g/dL Hct 41.6 L (42-52) % MCV 90.4 (80-100) fL MCH 29.8 (25-34) pg MCHC 32.9 (32-36) g/dL RDW Std Deviation 46.0 (36.4-46.3) fL RDW Coeff of Katie 14.0 (11.5-14.5) % Plt Count 198 (130-400) K/uL MPV 10.6 H (7.4-10.4) fL Immature Gran % (Auto) 0.2 % Neut % (Auto) 64.9 % Lymph % (Auto) 22.7 % Lewis % (Auto) 11.1 % Eos % (Auto) 0.9 % Baso % (Auto) 0.2 % Immature Gran # (Auto) 0.01 (0.00-0.02) K/uL Neut # (Auto) 3.82 (1.4-6.5) K/uL Lymph # (Auto) 1.33 (1.2-3.4) K/uL Lewis # (Auto) 0.65 H (0.11-0.59) K/uL Eos # (Auto) 0.05 (0-0.5) K/uL Baso # (Auto) 0.01 (0-0.2) K/uL PT 48.0 H (9.0-12.0) Seconds INR 5.3 H (0.9-1.1) APTT 41.0 H (21.0-31.0) Seconds PTT Ratio 1.5 D-Dimer 210 (0-500) ug/L FEU VBG pH (7.36-7.41) VBG pCO2 (38-50) mmHg VBG pO2 mmHg VBG HCO3 mmol/L VBG O2 Saturation % VBG Base Excess mEq/L Barometric Pressure mm/Hg Sodium 140 (136-145) mmol/L Potassium 3.7 (3.5-5.1) mmol/L Chloride 105 (98-107) mmol/L Carbon Dioxide 27 (21-32) mmol/L Anion Gap 8.0 (3-11) BUN 13 (7-18) mg/dl Creatinine 0.89 (0.6-1.4) mg/dl Est Cr Clr Drug Dosing 82.9 ml/min Est GFR ( Amer) 97.6 Est GFR (Non-Af Amer) 84.2 BUN/Creatinine Ratio 14.5 (10-20) Glucose 167 H (70-99) mg/dl Calcium 9.0 (8.5-10.1) mg/dl Magnesium 1.6 L (1.8-2.4) mg/dl Total Bilirubin 0.9 (0.2-1) mg/dl Direct Bilirubin 0.2 (0-0.2) mg/dl AST 21 (15-37) U/L ALT 32 (12-78) U/L Alkaline Phosphatase 58 (45-117) U/L Troponin I < 0.015 (0-0.045) ng/ml NT-Pro-B Natriuret Pep (0-900) pg/ml Total Protein 6.4 (6.4-8.2) gm/dl Albumin 3.5 (3.4-5.0) gm/dl Lipase 87 (73-393) U/L 05/31/19 05/31/19 Range/Units 11:57 12:39 WBC (4.8-10.8) K/uL RBC (4.7-6.1) M/uL Hgb (14.0-18.0) g/dL Hct (42-52) % MCV (80-100) fL MCH (25-34) pg MCHC (32-36) g/dL RDW Std Deviation (36.4-46.3) fL RDW Coeff of Katie (11.5-14.5) % Plt Count (130-400) K/uL MPV (7.4-10.4) fL Immature Gran % (Auto) % Neut % (Auto) % Lymph % (Auto) % Lewis % (Auto) % Eos % (Auto) % Baso % (Auto) % Immature Gran # (Auto) (0.00-0.02) K/uL Neut # (Auto) (1.4-6.5) K/uL Lymph # (Auto) (1.2-3.4) K/uL Lewis # (Auto) (0.11-0.59) K/uL Eos # (Auto) (0-0.5) K/uL Baso # (Auto) (0-0.2) K/uL PT (9.0-12.0) Seconds INR (0.9-1.1) APTT (21.0-31.0) Seconds PTT Ratio D-Dimer (0-500) ug/L FEU VBG pH 7.46 H (7.36-7.41) VBG pCO2 41 (38-50) mmHg VBG pO2 37 mmHg VBG HCO3 28 mmol/L VBG O2 Saturation 70.9 % VBG Base Excess 4.2 mEq/L Barometric Pressure 736.1 mm/Hg Sodium (136-145) mmol/L Potassium (3.5-5.1) mmol/L Chloride (98-107) mmol/L Carbon Dioxide (21-32) mmol/L Anion Gap (3-11) BUN (7-18) mg/dl Creatinine (0.6-1.4) mg/dl Est Cr Clr Drug Dosing ml/min Est GFR ( Amer) Est GFR (Non-Af Amer) BUN/Creatinine Ratio (10-20) Glucose (70-99) mg/dl Calcium (8.5-10.1) mg/dl Magnesium (1.8-2.4) mg/dl Total Bilirubin (0.2-1) mg/dl Direct Bilirubin (0-0.2) mg/dl AST (15-37) U/L ALT (12-78) U/L Alkaline Phosphatase (45-117) U/L Troponin I (0-0.045) ng/ml NT-Pro-B Natriuret Pep 1227 H (0-900) pg/ml Total Protein (6.4-8.2) gm/dl Albumin (3.4-5.0) gm/dl Lipase (73-393) U/L BMP 05/31/19 11:57 Sodium 140 Potassium 3.7 Chloride 105 Carbon Dioxide 27 BUN 13 Creatinine 0.89 Glucose 167 H Calcium 9.0 Cardiac Enzymes 05/31/19 Range/Units 11:57 Troponin I < 0.015 (0-0.045) ng/ml Liver Function 05/31/19 Range/Units 11:57 Total Bilirubin 0.9 (0.2-1) mg/dl Direct Bilirubin 0.2 (0-0.2) mg/dl AST 21 (15-37) U/L ALT 32 (12-78) U/L Alkaline Phosphatase 58 (45-117) U/L Albumin 3.5 (3.4-5.0) gm/dl Diagnostic Findings CXR: IMPRESSION: 1. Cardiomegaly without overt pulmonary edema. 2. Patchy right greater than left bibasilar opacities suggest atelectasis or pneumonitis. ECG Rhythm: atrial fibrillation Findings: + LBBB Change: no significant change Code Status & VTE Plan VTE Prophylaxis Plan VTE Prophylaxis will be ordered: Yes Supervising Physician Co-Signing Physician Notes Attending addendum: The patient was seen and examined in emergency room He has been complaining of exertional shortness of breath for the last 2 weeks Has cough without any phlegm, denies any fever and/or chills Has about 7 pounds weight gain but denies any edema of the legs Denies any chest pain and/or palpitation On examination Flushed faces No distress at rest Afebrile and hemodynamically stable Chest-occasional bibasilar crackles, no wheezing Abdomen-benign, nontender, no organomegaly bowel sounds present Extremities-trace edema on both sides PARCEL POST ORDER CLERK-alert, awake and oriented x3 Admission labs, imaging studies and EKG reviewed Likely has fluid overload but pneumonitis cannot be excluded Will get echo and cardiology evaluation Doubt any pulmonary embolism given INR more than 5 We will continue with Lasix and also add doxycycline for possible bronchitis with atypical bacterial Agree with assessment and plan as outlined above by HEATHER Phelps Dr
[2019-05-31] MEDS ORDERED: ACETAMINOPHEN 325 MG TAB PO PRN (15:05)
[2019-05-31] MEDS ORDERED: ONDANSETRON INJ 2 MG/ML 2 ML VIAL IV PRN (15:05)
[2019-05-31] MEDS ORDERED: POLYETHYLENE (MIRALAX) 17 GM PACK PO PRN (15:05)
[2019-05-31] MEDS ORDERED: GLUCOSE 10 TABS/TUBE PO PRN (15:32)
[2019-05-31] MEDS ORDERED: CARBOHYDRATES FOR HYPOGLYCEMIA PO PRN (15:32)
[2019-05-31] MEDS ORDERED: DEXTROSE 50% 50 ML SYRINGE IV PRN (15:32)
[2019-05-31] MEDS ORDERED: GLUCOSE 40% GEL 15 GM TUBE PO PRN (15:32)
[2019-05-31] MEDS ORDERED: GLUCAGON FOR INJ 1 MG VIAL SQ PRN (15:32)
[2019-05-31] MEDS ORDERED: ALBUTEROL HFA 8 GM INHALER INH PRN (16:01)
--- NOTE | 2019-05-31 16:32 | Emergency Department Note ---
Entered by Fazal Frazier acting as a scribe for Mynor Angela History of Present Illness General Chief complaint: Shortness of Breath/Dyspnea Stated complaint: sob Time Seen by Provider: 05/31/19 11:56 Source: patient Mode of arrival: ambulatory Limitations: no limitations History of Present Illness Onset (ago): day(s) 2 Location: chest Pain Consistency: + other (getting worse) Maximum Pain Intensity: 0 Quality: + other (episode) Associated symptoms: + shortness of breath and + other (restriction in his lungs, heavy phlegm) The patient is a 74 year old male who presents to the Emergency Room with complaints of an episode of shortness of breath. The patient notes that he has had difficulty breathing over the last couple weeks and that it has gotten worse. Patient reports his difficulty breathing is worse with exertion. He states he cannot walk across the room without feeling shortness of breath. He notes that he feels as though he has shortness of breath and heavy phlegm. The patient denies any hematuria or chest pain. He describes his pain as being restricted in his lungs with stomach pressure. The patient notes that he has had an appendectomy and cholecystectomy. He notes that he has an enlarged atrium and uses a CPAP ad night. He uses Albuterol as needed. Patient states he went to see his PCP about this shortness of breath who referred him to the emergency department today. Home Medications Home Medications Medication Instructions Recorded Confirmed Type allopurinol 100 mg tablet 100 mg PO BID tab 03/08/19 05/31/19 History amlodipine 5 mg tablet 5 mg PO DAILY #90 tab 03/08/19 05/31/19 History bumetanide 1 mg tablet 1 mg PO DAILY tab 03/08/19 05/31/19 History calcium carbonate 600 mg calcium 600 mg PO BID tab 03/08/19 05/31/19 History (1,500 mg) tablet lisinopril 40 mg tablet 40 mg PO DAILY #90 tab 03/08/19 05/31/19 History magnesium oxide 400 mg (241.3 mg 400 mg PO DAILY tab 03/08/19 05/31/19 History magnesium) tablet metformin 1,000 mg tablet 1,000 mg PO BID #180 tab 03/08/19 05/31/19 History metoprolol succinate 200 mg 200 mg PO DAILY #90 tab 03/08/19 05/31/19 History tablet,extended release 24 hr omeprazole 20 mg capsule,delayed 20 mg PO DAILY cap 03/08/19 05/31/19 History release pioglitazone 45 mg tablet 45 mg PO DAILY tab 03/08/19 05/31/19 History rosuvastatin 20 mg tablet 20 mg PO DAILY #30 tab 03/08/19 05/31/19 History warfarin 7.5 mg tablet 7.5 mg PO DAILY@1600 #30 tab 03/08/19 05/31/19 History CPAP Machine #1 ea 03/11/19 05/31/19 Rx albuterol sulfate 90 mcg/actuation 2 puffs INHALATION Q4H PRN #18 gm 03/11/19 05/31/19 Rx aerosol inhaler miscellaneous medical supply #1 ea 03/11/19 05/31/19 Rx eczvnwxjzlm-jzvqunivi-ikb C-Mn 1 cap PO BID 05/31/19 05/31/19 History naproxen 187.5 mg PO DAILY PRN 05/31/19 05/31/19 History omega 4-ygc-ryr-fish oil [Fish Oil] 1 cap PO DAILY 05/31/19 05/31/19 History sitagliptin [Januvia] 100 mg PO DAILY 05/31/19 05/31/19 History tobramycin 4 drp OPHTHALMIC (EYE) UD 05/31/19 05/31/19 History Allergies Allergy/AdvReac Type Severity Reaction Status Date / Time Sulfa (Sulfonamide Allergy Intermediate HIVES Verified 05/20/19 11:45 Antibiotics) Past Med/Surg History Medical History Acute bronchitis Allergic rhinitis Chronic cough Diabetes mellitus Diabetes mellitus, type II (Chronic) Gout HTN (hypertension) Palpitations Paroxysmal A-fib Tracheobronchopathia-osteochondroplastica (Chronic) Surgical History History of appendectomy (Chronic) History of carpal tunnel release of both wrists (Chronic) History of cholecystectomy (Chronic) Hx of arthroscopic knee surgery (Chronic) "bilat by Dr. Thomas in 2001" Total knee replacement status (Chronic) "R total knee arthroplasty in 2011" Family History Other Heart disease Lung disease Social History Preferred Language: Italian Communication Ability: Effective Telephone Interviewer Required: No Beliefs That Will Affect Care: None Current Living Situation: Spouse Other Information That Helps Us Care for You: No Feels Safe at Home: Yes Safety Concerns: Feels Safe At This Time Smoking Status: Former smoker Do You Dip or Chew Tobacco: No ; Second Hand Exposure: No ; Tobacco Cessation Education Requested by Patient: No Hx Alcohol Use: No Hx Substance Use: No Review of Systems See HPI for pertinent positives & negatives. and A total of 10 systems reviewed and were otherwise negative Physical Exam Vital Signs Vital Signs - 24 hr 05/31/19 11:28 05/31/19 12:00 05/31/19 12:11 Temperature 36.7 C Temperature Source Oral Pulse Rate 70 66 Pulse Rate [Apical] Respiratory Rate 22 20 Respiratory Effort / Characteristics Respiratory Depth Normal Blood Pressure 144/75 H Blood Pressure Mean 98 Blood Pressure Position Sitting Pulse Oximetry 95 Oxygen Delivery Method Room Air Room Air Sepsis Recent Fever Within 48 Hours No Sepsis New/Unexplained Change in Mental Status No Sepsis Action Taken by Nursing No Action Required 05/31/19 12:38 05/31/19 12:48 05/31/19 13:36 Temperature Temperature Source Pulse Rate 63 Pulse Rate [Apical] 64 Respiratory Rate 16 19 Respiratory Effort / Characteristics Non-Labored Spontaneous Respiratory Depth Blood Pressure 137/85 Blood Pressure Mean 106 Blood Pressure Position Pulse Oximetry 93 95 Oxygen Delivery Method Room Air Room Air Sepsis Recent Fever Within 48 Hours Sepsis New/Unexplained Change in Mental Status Sepsis Action Taken by Nursing Physical Exam GENERAL: He is oriented to person, place, and time. He appears well-developed and well-nourished. He does not appear distressed. ____ HENT: Exam performed. - Head: Normocephalic and atraumatic. - Right Ear: External ear normal. No mastoid tenderness. - Left Ear: External ear normal. No mastoid tenderness. - Mouth/Throat: The oropharynx is clear and moist. No trismus in the jaw. No dental abscesses or uvula swelling. No oropharyngeal exudate or tonsillar abscesses. ____ EYES: Conjunctivae and EOM are normal. Pupils are equal, round, and reactive to light. Right eye exhibits no discharge. Left eye exhibits no discharge. No scleral icterus. ____ NECK: Normal range of motion. Neck supple. No JVD present. No spinous process tenderness present. No carotid bruit present. No rigidity. No tracheal deviation and normal range of motion present. No Brudzinski's sign and no Kernig's sign noted. ____ CV: Normal rate, regular rhythm, normal heart sounds and intact distal pulses. There is no peripheral edema. Palpable radial pulses bue. ____ PULM/CHEST: Effort normal and breath sounds normal. No respiratory distress. No stridor. Rales of bases in lungs. - Chest Wall: He exhibits no tenderness. ____ ABD: The abdomen is soft. Bowel sounds are normal. He has no distension. No mass is present. There is no tenderness. There is no rebound, no guarding, no Adams's sign and no tenderness at McBurney's point. Rovsig negative MUSC/SKEL: Normal range of motion. There is no peripheral edema, tenderness or deformity. LYMPH: No cervical adenopathy. ____ NEURO: He is alert and oriented to person, place, and time. He has normal strength. No cranial nerve deficit or sensory deficit. Coordination and gait nor mal. GCS eye subscore is 4. GCS verbal subscore is 5. GCS motor subscore is 6. cerbellar tests wnl. ____ SKIN: Skin is warm and dry. He is not diaphoretic. ____ PSYCH: He has a normal mood and affect. His behavior is normal. Judgment and thought content normal. ____ Course Course 1156: The patient was evaluated in room B03B. A complete history and physical exam was performed. The EMR was reiviewed and found Type 2 diabetes, diabetic gastroparesis, COPD, LBBB, HTN, A fib 1330: Vitals are stable. The patients labs labs show mag 1.6, pro BNP 1227. The magnesium will be replaced in ED. Patient will be admitted for CHF for [facility] hospitalist team. I spoke with Lisa and she told her to admit to Dr. Gallegos. Administered Medications Discontinued Medications Albuterol (Duoneb) 3 ml NEB NOW STA Stop: 05/31/19 12:29 Last Admin: 05/31/19 12:47 Dose: 3 ml Documented by: [id number] Aspirin (Aspirin) 324 mg PO NOW STA Stop: 05/31/19 12:12 Last Admin: 05/31/19 12:42 Dose: 162 mg Documented by: [id number] Furosemide (Lasix) 40 mg IV NOW STA Stop: 05/31/19 13:04 Last Admin: 05/31/19 13:32 Dose: 40 mg Documented by: [id number] Magnesium Sulfate/Dextrose (Magnesium Sulfate / D5w) 1 gm in 100 mls @ 100 mls/hr IV ONE ONE Stop: 05/31/19 14:02 Last Infusion: 05/31/19 14:46 Dose: 0 mls/hr Documented by: [id number] Admin: 05/31/19 13:32 Dose: 100 mls/hr Documented by: [id number] Medical Decision Making Medical Records Attestation: I reviewed the patient's medical records. Home Medications Current Medication List: was personally reviewed by me Laboratory Data Attestation: I reviewed the patient's lab results. Result diagrams: 05/31/19 11:57 05/31/19 11:57 Lab Results 05/31/19 05/31/19 05/31/19 Range/Units 11:57 11:57 11:57 WBC 5.87 (4.8-10.8) K/uL RBC 4.60 L (4.7-6.1) M/uL Hgb 13.7 L (14.0-18.0) g/dL Hct 41.6 L (42-52) % MCV 90.4 (80-100) fL MCH 29.8 (25-34) pg MCHC 32.9 (32-36) g/dL RDW Std Deviation 46.0 (36.4-46.3) fL RDW Coeff of Katie 14.0 (11.5-14.5) % Plt Count 198 (130-400) K/uL MPV 10.6 H (7.4-10.4) fL Immature Gran % (Auto) 0.2 % Neut % (Auto) 64.9 % Lymph % (Auto) 22.7 % Forest % (Auto) 11.1 % Eos % (Auto) 0.9 % Baso % (Auto) 0.2 % Immature Gran # (Auto) 0.01 (0.00-0.02) K/uL Neut # (Auto) 3.82 (1.4-6.5) K/uL Lymph # (Auto) 1.33 (1.2-3.4) K/uL Forest # (Auto) 0.65 H (0.11-0.59) K/uL Eos # (Auto) 0.05 (0-0.5) K/uL Baso # (Auto) 0.01 (0-0.2) K/uL PT 48.0 H (9.0-12.0) Seconds INR 5.3 H (0.9-1.1) APTT 41.0 H (21.0-31.0) Seconds PTT Ratio 1.5 D-Dimer 210 (0-500) ug/L FEU VBG pH (7.36-7.41) VBG pCO2 (38-50) mmHg VBG pO2 mmHg VBG HCO3 mmol/L VBG O2 Saturation % VBG Base Excess mEq/L Barometric Pressure mm/Hg Sodium 140 (136-145) mmol/L Potassium 3.7 (3.5-5.1) mmol/L Chloride 105 (98-107) mmol/L Carbon Dioxide 27 (21-32) mmol/L Anion Gap 8.0 (3-11) BUN 13 (7-18) mg/dl Creatinine 0.89 (0.6-1.4) mg/dl Est Cr Clr Drug Dosing 82.9 ml/min Est GFR ( Amer) 97.6 Est GFR (Non-Af Amer) 84.2 BUN/Creatinine Ratio 14.5 (10-20) Glucose 167 H (70-99) mg/dl Calcium 9.0 (8.5-10.1) mg/dl Magnesium 1.6 L (1.8-2.4) mg/dl Total Bilirubin 0.9 (0.2-1) mg/dl Direct Bilirubin 0.2 (0-0.2) mg/dl AST 21 (15-37) U/L ALT 32 (12-78) U/L Alkaline Phosphatase 58 (45-117) U/L Troponin I < 0.015 (0-0.045) ng/ml NT-Pro-B Natriuret Pep (0-900) pg/ml Total Protein 6.4 (6.4-8.2) gm/dl Albumin 3.5 (3.4-5.0) gm/dl Lipase 87 (73-393) U/L 11/15/19 11/15/19 Range/Units 11:57 12:39 WBC (4.8-10.8) K/uL RBC (4.7-6.1) M/uL Hgb (14.0-18.0) g/dL Hct (42-52) % MCV (80-100) fL MCH (25-34) pg MCHC (32-36) g/dL RDW Std Deviation (36.4-46.3) fL RDW Coeff of Katie (11.5-14.5) % Plt Count (130-400) K/uL MPV (7.4-10.4) fL Immature Gran % (Auto) % Neut % (Auto) % Lymph % (Auto) % Forest % (Auto) % Eos % (Auto) % Baso % (Auto) % Immature Gran # (Auto) (0.00-0.02) K/uL Neut # (Auto) (1.4-6.5) K/uL Lymph # (Auto) (1.2-3.4) K/uL Forest # (Auto) (0.11-0.59) K/uL Eos # (Auto) (0-0.5) K/uL Baso # (Auto) (0-0.2) K/uL PT (9.0-12.0) Seconds INR (0.9-1.1) APTT (21.0-31.0) Seconds PTT Ratio D-Dimer (0-500) ug/L FEU VBG pH 7.46 H (7.36-7.41) VBG pCO2 41 (38-50) mmHg VBG pO2 37 mmHg VBG HCO3 28 mmol/L VBG O2 Saturation 70.9 % VBG Base Excess 4.2 mEq/L Barometric Pressure 736.1 mm/Hg Sodium (136-145) mmol/L Potassium (3.5-5.1) mmol/L Chloride (98-107) mmol/L Carbon Dioxide (21-32) mmol/L Anion Gap (3-11) BUN (7-18) mg/dl Creatinine (0.6-1.4) mg/dl Est Cr Clr Drug Dosing ml/min Est GFR ( Amer) Est GFR (Non-Af Amer) BUN/Creatinine Ratio (10-20) Glucose (70-99) mg/dl Calcium (8.5-10.1) mg/dl Magnesium (1.8-2.4) mg/dl Total Bilirubin (0.2-1) mg/dl Direct Bilirubin (0-0.2) mg/dl AST (15-37) U/L ALT (12-78) U/L Alkaline Phosphatase (45-117) U/L Troponin I (0-0.045) ng/ml NT-Pro-B Natriuret Pep 1227 H (0-900) pg/ml Total Protein (6.4-8.2) gm/dl Albumin (3.4-5.0) gm/dl Lipase (73-393) U/L Imaging Data Radiologist's Impression: Radiology results as stated below per my review and the radiologist's interpretation: XR chest 1V portable HISTORY: 74 years-old Male Chest Pain acute atypical chest pain COMPARISON: Chest CT 08/23/2016 TECHNIQUE: Portable AP view of the chest FINDINGS: Cardiac silhouette is mildly enlarged. Mild bilateral hilar prominence appears unchanged. Patchy right greater than left bibasilar opacities are noted without pneumothorax, large pleural effusion or overt pulmonary edema. Ill-defined 2.7 c m opacity of the right lung base. Degenerative changes of the shoulders and spine. Cholecystectomy. IMPRESSION: 1. Cardiomegaly without overt pulmonary edema. 2. Patchy right greater than left bibasilar opacities suggest atelectasis or pneumonitis. The above report was generated using voice recognition software. It may contain grammatical, syntax or spelling errors. Electronically signed by: Shane Ackerman M.D. 05/31/2019 12:35 PM ECG Data Indication: + chest pain Rate (beats per minute): 68 Rhythm: + atrial fibrillation ECG Intervals/blocks: + Left bundle branch block, + Normal QRS (162) and + Normal QT (QTc 493) ECG Findings: + Other (Sgarbosa negative) [facility] Narrative 1156: The patient was evaluated in room B03B. A complete history and physical exam was performed. The EMR was reiviewed and found Type 2 diabetes, diabetic gastroparesis, COPD, LBBB, HTN, A fib 1330: Vitals are stable. The patients labs labs show mag 1.6, pro BNP 1227. The magnesium will be replaced in ED. Patient will be admitted for CHF for [facility] Hospitalist team. I spoke with Lisa and she told her to admit to Dr. Gallegos. Impression & Plan Congestive heart failure, Hypomagnesemia Discharge Plan Visit Data *Final* Discharge Date/Time: 05/31/19 14:40 Chief Complaint: Shortness of Breath/Dyspnea Stated Complaint: sob ED Provider: Mynor Angela Discharge Problem: Congestive heart failure, Hypomagnesemia Patient Disposition: Admitted As Inpatient Discharge Instructions Interventions: ED Discharge Assessment Last Done: 05/31/19 14:40 Discharge Problem: Congestive heart failure Qualifiers: Heart failure type: unspecified Heart failure chronicity: acute Qualified Code(s): I50.9 - Heart failure, unspecified The scribe's documentation has been prepared under my direction and personally reviewed by me in its entirety. I confirm that the note above accurately reflects all work, treatment, procedures, and medical decision making performed by me.
[2019-05-31] MEDS: DOXYCYCLINE HYCLATE 100 MG CAP PO SCH ×2 (16:39→20:43)
[2019-05-31] MEDS: INSULIN ASPART 100 UNITS/ML 3 ML PEN SC SCH ×2 (17:40→20:41)
[2019-05-31] MEDS: CALCIUM CARBONATE 500 MG CHEWABLE TAB PO SCH (18:41)
[2019-05-31] MEDS: ALLOPURINOL 100 MG TAB PO SCH (20:43)
[2019-05-31] MEDS ORDERED: GLUCOSAMINE CHONDROIT VIT C MN PO SCH (21:00)
[2019-06-01] MEDS: CALCIUM CARBONATE 500 MG CHEWABLE TAB PO SCH ×2 (06:11→17:36)
[2019-06-01] MEDS: MAGNESIUM OXIDE 400 MG TAB PO SCH (06:11)
[2019-06-01 07:13] LABS: Hematocrit (blood only) 44.1 % (42-52); Hemoglobin 14.7 g/dL (14.0-18.0); Mean Corpuscular Hemoglobin 30.3 pg (25-34); Mean Corpuscular Hgb Conc 33.3 g/dL (32-36); Mean Corpuscular Volume 90.9 fL (80-100); Mean Platelet Volume 10.1 fL (7.4-10.4); Platelet Count 229 K/uL (130-400); RDW Coefficient of Variation 13.7 % (11.5-14.5); Red Blood Count 4.85 M/uL (4.7-6.1); White Blood Count 7.54 K/uL (4.8-10.8)
[2019-06-01 07:37] LABS: Prothrombin Time 36.4 Seconds (9.0-12.0)
[2019-06-01 07:41] LABS: INR 3.9 (0.9-1.1)
[2019-06-01 07:48] LABS: Estimated Average Glucose 171 mg/dl; Hemoglobin A1C 7.6 % (4.5-5.6)
[2019-06-01] MEDS: BUMETANIDE 1 MG TAB PO SCH (07:48)
[2019-06-01] MEDS: PANTOprazole 40 MG TAB PO SCH (07:48)
[2019-06-01] MEDS: AMLODIPINE BESYLATE 5 MG TAB PO SCH (07:49)
[2019-06-01] MEDS: LISINOPRIL 40 MG TAB PO SCH (07:49)
[2019-06-01] MEDS: ALLOPURINOL 100 MG TAB PO SCH ×2 (07:50→20:53)
[2019-06-01] MEDS: METOPROLOL SUCC 50MG EXT REL TAB PO SCH (07:51)
[2019-06-01] MEDS: DOXYCYCLINE HYCLATE 100 MG CAP PO SCH ×2 (07:52→20:53)
[2019-06-01 07:55] LABS: BUN Creatinine Ratio 13.7 (10-20); Calcium 9.5 mg/dl (8.5-10.1); Creatinine Clr Calc Pharmacy 86.2 ml/min; Est GFR (African American) 98.1; Est GFR (Non-African American) 84.6; Magnesium 1.9 mg/dl (1.8-2.4); Potassium 3.3 mmol/L (3.5-5.1)
[2019-06-01] MEDS ORDERED: POTASSIUM CHLORIDE 20 MEQ TABCR PO ONE (09:03)
[2019-06-01] MEDS: ROSUVASTATIN CALCIUM 20 MG TAB PO SCH (09:23)
[2019-06-01] MEDS: INSULIN ASPART 100 UNITS/ML 3 ML PEN SC SCH ×4 (09:26→20:51)
--- NOTE | 2019-06-01 12:11 | Cardiology Consultation ---
Date of Consultation June 01, 2019 Assessment & Plan (1) CAD (coronary artery disease): Will start aspirin 81 mg daily today Continue rosuvastatin for now we will likely need to increase dose prior to discharge (2) Dyspnea on exertion: His symptoms are very concerning for unstable angina and given his history of coronary artery disease by cardiac catheterization over 13 years ago I do believe further ischemic work-up is warranted at this time. I believe the most prudent course of action would be for direct visualization of his coronary anatomy by cardiac catheterization which will tentatively be planned for 06/03/2019. We will follow his INR closely and may need to be reversed. (3) LBBB (left bundle branch block): Chronic Nonspecific inferior ST segment changes (4) Paroxysmal A-fib: Currently normal sinus rhythm. His INR is supratherapeutic again will allow to trend down and possibly reverse if necessary for cardiac catheterization (5) Congestive heart failure: Diastolic dysfunction with normal LV systolic function does not examine his volume overload at this time We will follow volume status clinically History of Present Illness Reason for Consultation: dyspnea on exertion Requesting Physician: Dr. Del Cid Attending Physician: Roscoe Del Cid MD History of Present Illness It was my pleasure to see Mr. Lopez in consultation today June 01, 2019. As you know he is a very pleasant 74-year-old gentleman who routinely follows with Dr. Kang for cardiology practice. He presents to [facility] emergency department on 05/31/2016 with complaints of worsening shortness of breath. He states he recently returned from a hunting trip to [place] several weeks ago however upon returning he felt completely exhausted. He notes in particular his truck remained packed with gear for over a week for the energy to go 1 pack. He started having significant dyspnea with minimal exertion which gradually progressed. His shortness of breath progressed to the point where he woke this morning was supposed to go hunting but even getting out of bed and walking across the room made him short of breath. At that time he had his bring him in the emergency department. Upon arrival his initial ischemic work-up was unremarkable with an underlying left bundle branch block on EKG. He states he is now feeling better at rest but believes if he gets up just to walk across the room he will become dyspneic again. As per Dr. Dickey's office note of October 22, 2018: His past medical history is relevant for coronary artery disease with cardiac catheterization in 2005 revealing branch vessel CAD with an 80% stenosis of the first diagonal and luminal irregularities of the left anterior descending coronary artery and a second diagonal with an ectatic dilatation of the left circumflex and OM. The left posterior lateral branch had a 40% stenosis and distal act had changes for which medical management was recommended. A nuclear stress test performed in 2015 with findings of normal perfusion and normal LVEF of 68%. Allergies Allergy/AdvReac Type Severity Reaction Status Date / Time Sulfa (Sulfonamide Allergy Intermediate HIVES Verified 05/20/19 11:45 Antibiotics) Home Medications Home Medications Medication Instructions Recorded Confirmed Type allopurinol 100 mg tablet 100 mg PO BID tab 03/08/19 05/31/19 History amlodipine 5 mg tablet 5 mg PO DAILY #90 tab 03/08/19 05/31/19 History bumetanide 1 mg tablet 1 mg PO DAILY tab 03/08/19 05/31/19 History calcium carbonate 600 mg calcium 600 mg PO BID tab 03/08/19 05/31/19 History (1,500 mg) tablet lisinopril 40 mg tablet 40 mg PO DAILY #90 tab 03/08/19 05/31/19 History magnesium oxide 400 mg (241.3 mg 400 mg PO DAILY tab 03/08/19 05/31/19 History magnesium) tablet metformin 1,000 mg tablet 1,000 mg PO BID #180 tab 03/08/19 05/31/19 History metoprolol succinate 200 mg 200 mg PO DAILY #90 tab 03/08/19 05/31/19 History tablet,extended release 24 hr omeprazole 20 mg capsule,delayed 20 mg PO DAILY cap 03/08/19 05/31/19 History release pioglitazone 45 mg tablet 45 mg PO DAILY tab 03/08/19 05/31/19 History rosuvastatin 20 mg tablet 20 mg PO DAILY #30 tab 03/08/19 05/31/19 History warfarin 7.5 mg tablet 7.5 mg PO DAILY@1600 #30 tab 03/08/19 05/31/19 History CPAP Machine #1 ea 03/11/19 05/31/19 Rx albuterol sulfate 90 mcg/actuation 2 puffs INHALATION Q4H PRN #18 gm 03/11/19 05/31/19 Rx aerosol inhaler miscellaneous medical supply #1 ea 03/11/19 05/31/19 Rx huwmopfhusn-[id number]-ckz C-Mn 1 cap PO BID 05/31/19 05/31/19 History naproxen 187.5 mg PO DAILY PRN 05/31/19 05/31/19 History omega 1-asr-uzu-fish oil [Fish Oil] 1 cap PO DAILY 05/31/19 05/31/19 History sitagliptin [Januvia] 100 mg PO DAILY 05/31/19 05/31/19 History tobramycin 4 drp OPHTHALMIC (EYE) UD 05/31/19 05/31/19 History Patient History Medical History Acute bronchitis Allergic rhinitis Chronic cough Diabetes mellitus Diabetes mellitus, type II (Chronic) Gout HTN (hypertension) Palpitations Paroxysmal A-fib Tracheobronchopathia-osteochondroplastica (Chronic) Surgical History History of appendectomy (Chronic) History of carpal tunnel release of both wrists (Chronic) History of cholecystectomy (Chronic) Hx of arthroscopic knee surgery (Chronic) "bilat by Dr. Thomas in 2001" Total knee replacement status (Chronic) "R total knee arthroplasty in 2011" Family History Other Heart disease Lung disease Social History Preferred Language: Moldovan Communication Ability: Effective Digital Marketing Assistant Required: No Beliefs That Will Affect Care: None Current Living Situation: Spouse Other Information That Helps Us Care for You: No Feels Safe at Home: Yes Safety Concerns: Feels Safe At This Time Smoking Status: Former smoker Do You Dip or Chew Tobacco: No ; Second Hand Exposure: No ; Tobacco Cessation Education Requested by Patient: No Hx Alcohol Use: No Hx Substance Use: No Review of Systems Review of Systems: All systems reviewed & are unremarkable except as noted in HPI & below Physical Exam Physical Exam: General: Awake, alert and oriented x 3. No acute distress. HEENT: Normocephalic, atraumatic. Pupils equal, round and reactive to light and accommodation. Extraocular muscles are intact. Anicteric sclera. Moist mucous membranes. Neck: No JVD. No bruit. Cardiovascular: irregularly irregular, unable to appreciate murmur, rub or gallop. Pulmonary: Clear to auscultation bilaterally. No rales, rhonchi, or wheezing. Abdomen: Bowel sounds x 4, soft. No rebound, guarding or tenderness. No organomegaly. Extremities: No clubbing, cyanosis or edema. +2 pedal pulses bilaterally. Skin: Warm and dry. Results & Data Vital Signs (Past 12 Hours) Vital Signs Temp Pulse Pulse Resp BP Pulse Ox 06/01/19 11:29 36.7 C 54 L 16 145/82 H 94 06/01/19 07:39 36.6 C 64 16 165/91 H 94 06/01/19 03:45 36.5 C 66 18 165/90 H 93 06/01/19 03:35 58 L 16 91 06/01/19 01:17 63 16 94 06/01/19 00:31 36.4 C L 68 20 161/89 H 93 Laboratory Results Laboratory Results - last 24 hr 05/31/19 05/31/19 05/31/19 11:57 11:57 11:57 WBC 5.87 RBC 4.60 L Hgb 13.7 L Hct 41.6 L MCV 90.4 MCH 29.8 MCHC 32.9 RDW Std Deviation 46.0 RDW Coeff of Katie 14.0 Plt Count 198 MPV 10.6 H Immature Gran % (Auto) 0.2 Neut % (Auto) 64.9 Lymph % (Auto) 22.7 [place] % (Auto) 11.1 Eos % (Auto) 0.9 Baso % (Auto) 0.2 Immature Gran # (Auto) 0.01 Neut # (Auto) 3.82 Lymph # (Auto) 1.33 [place] # (Auto) 0.65 H Eos # (Auto) 0.05 Baso # (Auto) 0.01 PT 48.0 H INR 5.3 H APTT 41.0 H PTT Ratio 1.5 D-Dimer 210 VBG pH VBG pCO2 VBG pO2 VBG HCO3 VBG O2 Saturation VBG Base Excess Barometric Pressure Sodium 140 Potassium 3.7 Chloride 105 Carbon Dioxide 27 Anion Gap 8.0 BUN 13 Creatinine 0.89 Est Cr Clr Drug Dosing 82.9 Est GFR ( Amer) 97.6 Est GFR (Non-Af Amer) 84.2 BUN/Creatinine Ratio 14.5 Glucose 167 H POC Glucose Estimat Average Glucose Hemoglobin A1c Calcium 9.0 Magnesium 1.6 L Total Bilirubin 0.9 Direct Bilirubin 0.2 AST 21 ALT 32 Alkaline Phosphatase 58 Troponin I < 0.015 NT-Pro-B Natriuret Pep Total Protein 6.4 Albumin 3.5 Lipase 87 05/31/19 05/31/19 05/31/19 11:57 12:39 16:38 WBC RBC Hgb Hct MCV MCH MCHC RDW Std Deviation RDW Coeff of Katie Plt Count MPV Immature Gran % (Auto) Neut % (Auto) Lymph % (Auto) [place] % (Auto) Eos % (Auto) Baso % (Auto) Immature Gran # (Auto) Neut # (Auto) Lymph # (Auto) [place] # (Auto) Eos # (Auto) Baso # (Auto) PT INR APTT PTT Ratio D-Dimer VBG pH 7.46 H VBG pCO2 41 VBG pO2 37 VBG HCO3 28 VBG O2 Saturation 70.9 VBG Base Excess 4.2 Barometric Pressure 736.1 Sodium Potassium Chloride Carbon Dioxide Anion Gap BUN Creatinine Est Cr Clr Drug Dosing Est GFR ( Amer) Est GFR (Non-Af Amer) BUN/Creatinine Ratio Glucose POC Glucose 113 H Estimat Average Glucose Hemoglobin A1c Calcium Magnesium Total Bilirubin Direct Bilirubin AST ALT Alkaline Phosphatase Troponin I NT-Pro-B Natriuret Pep 1227 H Total Protein Albumin Lipase 05/31/19 05/31/19 05/31/19 17:48 20:23 23:58 WBC RBC Hgb Hct MCV MCH MCHC RDW Std Deviation RDW Coeff of Katie Plt Count MPV Immature Gran % (Auto) Neut % (Auto) Lymph % (Auto) [place] % (Auto) Eos % (Auto) Baso % (Auto) Immature Gran # (Auto) Neut # (Auto) Lymph # (Auto) [place] # (Auto) Eos # (Auto) Baso # (Auto) PT INR APTT PTT Ratio D-Dimer VBG pH VBG pCO2 VBG pO2 VBG HCO3 VBG O2 Saturation VBG Base Excess Barometric Pressure Sodium Potassium Chloride Carbon Dioxide Anion Gap BUN Creatinine Est Cr Clr Drug Dosing Est GFR ( Amer) Est GFR (Non-Af Amer) BUN/Creatinine Ratio Glucose POC Glucose 135 H Estimat Average Glucose Hemoglobin A1c Calcium Magnesium Total Bilirubin Direct Bilirubin AST ALT Alkaline Phosphatase Troponin I < 0.015 < 0.015 NT-Pro-B Natriuret Pep Total Protein Albumin Lipase 06/01/19 06/01/19 06/01/19 07:01 07:01 07:01 WBC 7.54 RBC 4.85 Hgb 14.7 Hct 44.1 MCV 90.9 MCH 30.3 MCHC 33.3 RDW Std Deviation 45.0 RDW Coeff of Katie 13.7 Plt Count 229 MPV 10.1 Immature Gran % (Auto) Neut % (Auto) Lymph % (Auto) [place] % (Auto) Eos % (Auto) Baso % (Auto) Immature Gran # (Auto) Neut # (Auto) Lymph # (Auto) [place] # (Auto) Eos # (Auto) Baso # (Auto) PT 36.4 H INR 3.9 H APTT PTT Ratio D-Dimer VBG pH VBG pCO2 VBG pO2 VBG HCO3 VBG O2 Saturation VBG Base Excess Barometric Pressure Sodium 138 Potassium 3.3 L Chloride 102 Carbon Dioxide 29 Anion Gap 7.0 BUN 12 Creatinine 0.88 Est Cr Clr Drug Dosing 86.2 Est GFR ( Amer) 98.1 Est GFR (Non-Af Amer) 84.6 BUN/Creatinine Ratio 13.7 Glucose 137 H POC Glucose Estimat Average Glucose Hemoglobin A1c Calcium 9.5 Magnesium 1.9 Total Bilirubin Direct Bilirubin AST ALT Alkaline Phosphatase Troponin I NT-Pro-B Natriuret Pep Total Protein Albumin Lipase 06/01/19 06/01/19 06/01/19 07:01 07:47 11:41 WBC RBC Hgb Hct MCV MCH MCHC RDW Std Deviation RDW Coeff of Katie Plt Count MPV Immature Gran % (Auto) Neut % (Auto) Lymph % (Auto) [place] % (Auto) Eos % (Auto) Baso % (Auto) Immature Gran # (Auto) Neut # (Auto) Lymph # (Auto) [place] # (Auto) Eos # (Auto) Baso # (Auto) PT INR APTT PTT Ratio D-Dimer VBG pH VBG pCO2 VBG pO2 VBG HCO3 VBG O2 Saturation VBG Base Excess Barometric Pressure Sodium Potassium Chloride Carbon Dioxide Anion Gap BUN Creatinine Est Cr Clr Drug Dosing Est GFR ( Amer) Est GFR (Non-Af Amer) BUN/Creatinine Ratio Glucose POC Glucose 153 H 167 H Estimat Average Glucose 171 Hemoglobin A1c 7.6 H Calcium Magnesium Total Bilirubin Direct Bilirubin AST ALT Alkaline Phosphatase Troponin I NT-Pro-B Natriuret Pep Total Protein Albumin Lipase Medications Administered Current Inpatient Medications Acetaminophen (Tylenol) 650 mg PO Q4H PRN PRN Reason: Pain or Fever Stop: 06/30/19 15:04 Albuterol (Ventolin Hfa) 2 puffs INH Q4H PRN PRN Reason: shortness of breath or wheezing Stop: 06/30/19 16:00 Allopurinol (Zyloprim) 100 mg PO BID REPLACED BY [facility] Stop: 06/30/19 20:59 Last Admin: 06/01/19 07:50 Dose: 100 mg Documented by: Amlodipine Besylate (Norvasc) 5 mg PO DAILY REPLACED BY [facility] Stop: 07/01/19 08:59 Last Admin: 06/01/19 07:49 Dose: 5 mg Documented by: Bumetanide (Bumex) 1 mg PO DAILY REPLACED BY [facility] Stop: 07/01/19 08:59 Last Admin: 06/01/19 07:48 Dose: 1 mg Documented by: Calcium Carbonate (Tums) 500 mg PO DAILY@0700,1900 REPLACED BY [facility] Stop: 06/30/19 18:59 Last Admin: 06/01/19 06:11 Dose: 500 mg Documented by: Dextrose (Dextrose 50%) 25 - 50 ml IV UD PRN; Protocol PRN Reason: Hypoglycemia Protocol Stop: 06/30/19 15:31 Doxycycline Hyclate (Vibramycin) 100 mg PO BID REPLACED BY [facility] Stop: 06/07/19 15:59 Last Admin: 06/01/19 07:52 Dose: 100 mg Documented by: Glucagon (Glucagen) 1 mg SQ UD PRN; Protocol PRN Reason: Hypoglycemia Protocol Stop: 06/30/19 15:31 Glucose (Dex4 Glucose) 4 - 8 tabs PO UD PRN; Protocol PRN Reason: Hypoglycemia Protocol Stop: 06/30/19 15:31 Glucose (Glucose 40%) 15 - 30 gm PO UD PRN; Protocol PRN Reason: Hypoglycemia Protocol Stop: 06/30/19 15:31 Insulin Aspart (Novolog Flexpen) 0 units SC ACHS REPLACED BY [facility] Stop: 06/30/19 16:29 Last Admin: 06/01/19 09:26 Dose: 6 units Documented by: Lisinopril (Zestril) 40 mg PO DAILY REPLACED BY [facility] Stop: 07/01/19 08:59 Last Admin: 06/01/19 07:49 Dose: 40 mg Documented by: Magnesium Oxide (Mag-Ox) 400 mg PO DAILY@0700 REPLACED BY [facility] Stop: 07/01/19 06:59 Last Admin: 06/01/19 06:11 Dose: 400 mg Documented by: Metoprolol Succinate (Toprol Xl) 200 mg PO DAILY REPLACED BY [facility] Stop: 07/01/19 08:59 Last Admin: 06/01/19 07:51 Dose: 200 mg Documented by: Miscellaneous (Carbohydrates For Hypoglycemia) 15 - 30 gm PO UD PRN PRN Reason: Hypoglycemia Protocol Stop: 06/30/19 15:31 Ondansetron HCl (Zofran) 4 mg IV Q6H PRN PRN Reason: Nausea Stop: 06/30/19 15:04 Pantoprazole Sodium (Protonix) 40 mg PO DAILY REPLACED BY [facility]; Protocol Stop: 07/01/19 08:59 Last Admin: 06/01/19 07:48 Dose: 40 mg Documented by: Polyethylene Glycol (Miralax Powder Packet) 17 gm PO DAILY PRN PRN Reason: Constipation Stop: 06/30/19 15:04 Rosuvastatin Calcium (Crestor) 20 mg PO DAILY REPLACED BY [facility] Stop: 07/01/19 08:59 Last Admin: 06/01/19 09:23 Dose: 20 mg Documented by: (1) Congestive heart failure Heart failure chronicity: acute Heart failure type: unspecified Qualified Code(s): I50.9 - Heart failure, unspecified
--- NOTE | 2019-06-01 16:51 | Hospitalist Progress Note ---
Date of Service June 01, 2019 Assessment & Plan (1) Dyspnea on exertion: Patient presented with dyspnea on exertion. Diagnostic considerations include congestive heart failure, myocardial ischemia, lower respiratory tract infection. Pulmonary embolism very unlikely with warfarin therapy and normal d-dimer. Specific problems are addressed below. (2) CAD (coronary artery disease): History of coronary artery disease. Cardiac cath 2006 80% stenosis 1st diagonal, luminal irregularities of LAD and 2nd diagonal. Medical management recommended. Nuclear stress test 2016 showed normal perfusion, LVEF 68%. Current symptoms of dyspnea on exertion and epigastric discomfort may be secondary to myocardial ischemia. EKG shows chronic atrial fibrillation, rate controlled, left bundle branch block, inferior and lateral ST and T wave abnormalities. Serum troponins negative x3. Echocardiogram did not show any wall motion abnormalities except for abnormal septal wall motion consistent with left bundle branch block pattern. Cardiology consulted. Continue metoprolol and statin. (3) Congestive heart failure: Patient experiencing dyspnea on exertion associated with weight gain. Chest x-ray showed cardiomegaly and suspected mild vascular congestion. BNP elevated. Echocardiogram showed normal left ventricular systolic function, but grade II diastolic dysfunction. Suspected acute on chronic left ventricular diastolic heart failure. Titrate diuretics. (4) Atrial fibrillation: Chronic atrial fibrillation, rate controlled on metoprolol. Anticoagulated on warfarin (being held because of supratherapeutic INR and possible need for cardiac catheterization). (5) Hypertension: Continue metoprolol, lisinopril, amlodipine. (6) Cough: Mild cough productive of clear sputum. No fever. Chest x-ray interpreted as possible bibasilar pneumonia, but clinical suspicion low. Continue doxycycline for possible tracheobronchitis. (7) COPD, mild: Stable despite possible bronchitis. Continue usual inhalers. (8) SRAVANTHI (obstructive sleep apnea): Continue CPAP. (9) DVT prophylaxis: On warfarin for chronic atrial fibrillation. INR supratherapeutic. Warfarin being held for possible cardiac catheterization. Add SCDs when INR subtherapeutic. (10) Discharge planning issues: Anticipated discharge to home. Family Medicine follow-up with Dr. Kaminski. Cardiology follow-up with Dr. Dickey. Subjective Recheck for multiple problems. Patient seen in their room around 1030 Presented to the ED with dyspnea on exertion. Recent onset of symptoms. No fever. Occasional cough productive of clear sputum. No chest pain, but notes intermittent epigastric discomfort, sometimes with exertion. Recent weight gain of 6 or 7 pounds. Review of Systems: Constitutional- no fever. Cardiac- as noted above. Pulmonary- as noted above. GI- no nausea, vomiting, diarrhea, melena, hematochezia. - no urinary symptoms. Otherwise, as noted above. Physical Exam Constitutional: no acute distress Eyes: + anicteric sclerae Respiratory: no respiratory distress Auscultation: lungs clear to auscultation bilaterally Cardiovascular: Rate/Rhythm: regular rate and regular rhythm Heart Sounds: no gallop, no murmur and no cardiac rub Vessels: + JVD Extremities: + edema (trace pretibial); no calf tenderness Gastrointestinal (Abdomen): normal bowel sounds, soft, nontender, no hepatosplenomegaly Skin: no rashes, warm and dry Psychiatric: Orientation: alert and oriented x 3 Results & Data Vital Signs (Past 12 Hours) Vital Signs Temp Pulse Resp BP Pulse Ox 06/01/19 15:47 36.6 C 56 L 16 140/82 95 06/01/19 11:29 36.7 C 54 L 16 145/82 H 94 06/01/19 07:39 36.6 C 64 16 165/91 H 94 Laboratory Results Laboratory Results - last 24 hr 05/31/19 05/31/19 05/31/19 16:38 17:48 20:23 WBC RBC Hgb Hct MCV MCH MCHC RDW Std Deviation RDW Coeff of Katie Plt Count MPV PT INR Sodium Potassium Chloride Carbon Dioxide Anion Gap BUN Creatinine Est Cr Clr Drug Dosing Est GFR ( Amer) Est GFR (Non-Af Amer) BUN/Creatinine Ratio Glucose POC Glucose 113 H 135 H Estimat Average Glucose Hemoglobin A1c Calcium Magnesium Troponin I < 0.015 05/31/19 06/01/19 06/01/19 23:58 07:01 07:01 WBC 7.54 RBC 4.85 Hgb 14.7 Hct 44.1 MCV 90.9 MCH 30.3 MCHC 33.3 RDW Std Deviation 45.0 RDW Coeff of Katie 13.7 Plt Count 229 MPV 10.1 PT INR Sodium 138 Potassium 3.3 L Chloride 102 Carbon Dioxide 29 Anion Gap 7.0 BUN 12 Creatinine 0.88 Est Cr Clr Drug Dosing 86.2 Est GFR ( Amer) 98.1 Est GFR (Non-Af Amer) 84.6 BUN/Creatinine Ratio 13.7 Glucose 137 H POC Glucose Estimat Average Glucose Hemoglobin A1c Calcium 9.5 Magnesium 1.9 Troponin I < 0.015 06/01/19 06/01/19 06/01/19 07:01 07:01 07:47 WBC RBC Hgb Hct MCV MCH MCHC RDW Std Deviation RDW Coeff of Katie Plt Count MPV PT 36.4 H INR 3.9 H Sodium Potassium Chloride Carbon Dioxide Anion Gap BUN Creatinine Est Cr Clr Drug Dosing Est GFR ( Amer) Est GFR (Non-Af Amer) BUN/Creatinine Ratio Glucose POC Glucose 153 H Estimat Average Glucose 171 Hemoglobin A1c 7.6 H Calcium Magnesium Troponin I 06/01/19 11:41 WBC RBC Hgb Hct MCV MCH MCHC RDW Std Deviation RDW Coeff of Katie Plt Count MPV PT INR Sodium Potassium Chloride Carbon Dioxide Anion Gap BUN Creatinine Est Cr Clr Drug Dosing Est GFR ( Amer) Est GFR (Non-Af Amer) BUN/Creatinine Ratio Glucose POC Glucose 167 H Estimat Average Glucose Hemoglobin A1c Calcium Magnesium Troponin I Diagnostic Findings Portable chest x-ray performed yesterday. Radiology interpretation: Cardiomegaly, bibasilar densities (infiltrates versus atelectasis). Suspect some degree of pulmonary vascular congestion (my interpretation). ECG Additional Comments: EKG performed this morning at 0659 revealed and demonstrated atrial fibrillation with PVCs, left bundle branch block morphology, ST depression in leads II, aVF, V6, biphasic T waves in leads I, II. (1) Congestive heart failure Heart failure chronicity: acute Heart failure type: unspecified Qualified Code(s): I50.9 - Heart failure, unspecified
[2019-06-01] MEDS ORDERED: IOVERSOL 100ml IV PRN (17:06)
--- NOTE | 2019-06-01 17:43 | CT Scan Report ---
ABDOMEN AND PELVIS CT WITH IV AND ORAL CONTRAST CT DOSE: 845.18 mGy.cm HISTORY: Acute left lower quadrant abdominal pain LLQ abdominal pain TECHNIQUE: Multiaxial CT images of the abdomen and pelvis were performed following the IV administrat ion of 94 cc of Optiray 320 and oral contrast. A dose lowering technique was utilized adhering to th e principles of ALARA. COMPARISON STUDY: Chest CT 08/23/2016 FINDINGS: Small right pleural effusion with dependent right basilar consolidation suggestive of compressive ate lectasis. Linear metallic density structure noted within the right pleural space. Trace left pleural effusion with minimal left basilar atelectasis. No gross pneumoperitoneum or pneumatosis. The imaged inferior cardiac chambers are moderately enlarged. Trace pericardial effusion. Cholecystectomy.. Mild intrahepatic and extrahepatic biliary ductal dilation is likely a postsurgical basis. Suggestion of hepatic steatosis. Otherwise unremarkable liver. Spleen is enlarged, 16.1 cm. M oderate to extensive generalized pancreatic atrophy. 7 mm cystic lesion of the pancreatic tail on agustin ge 103 series 3 is nonspecific however statistically favors a sidebranch IPMN. Unremarkable left adre nal gland. Coarse calcifications the right adrenal gland are noted. Mild nonspecific bilateral perine phric stranding. There are a few bilateral renal hypodensities suggestive of probable cysts. Nonobstr ucting 3 mm calculus of the interpolar right kidney. No ureteral calculi or obstructive uropathy. Mod erate circumferential wall thickening of the urinary bladder with partial distention. Prostamegaly. S mall right and moderate left fat filled inguinal hernias. Extensive calcified plaque of the abdominal aorta without aneurysm. Pathologically enlarged 2.5 x 3.4 cm periaortic lymph node on image 216 seri es 3. No additional pathologic adenopathy identified prominent periportal lymph nodes are present. No bowel obstruction. Extensive colonic diverticulosis. Moderate wall thickening of the proximal sigm oid colon is noted with pericolonic stranding and trace free fluid centered around inflamed diverticu lum on image 283 series 3. No evidence of perforation or drainable fluid collection. Nonvisualization of the appendix. Degenerative changes of the spine, pelvis and hips. IMPRESSION: 1. Findings compatible with acute uncomplicated sigmoid diverticulitis. No evidence of perforation or drainable fluid collection. 2. No bowel obstruction or pneumoperitoneum. 3. Nonobstructing right nephrolithiasis. 4. Prostamegaly with suggestion of chronic bladder outlet obstruction. 5. Indeterminate pathologically enlarged periaortic lymph node measures 2.5 x 3.4 cm. Follow-up is ne eded to exclude progressive abnormality. 6. Additional findings as above. Electronically signed by: Shane Ackerman M.D. 06/01/2019 5:42 PM
--- NOTE | 2019-06-01 20:04 | Communication Note ---
Date of Service: June 01, 2019 Patient developed LLQ pain this afternoon, similar to previous episode. CT- sigmoid diverticulitis without perforation. Bowel rest. IV ampicillin / sulbactam.
[2019-06-01] MEDS ORDERED: PIPERACILL/TAZOBAC CONSULT ACTIVE PRN (20:05)
[2019-06-01] MEDS ORDERED: PIPERACILLIN/TAZOBACTAM 3.375 GM in DEXTROSE 5% 100 ML IV ONE (20:30)
[2019-06-02] MEDS: PIPERACILLIN/TAZOBACTAM 3.375 GM in DEXTROSE 5% 100 ML IV SCH ×3 (02:11→17:59)
[2019-06-02] MEDS: CALCIUM CARBONATE 500 MG CHEWABLE TAB PO SCH ×2 (06:25→18:00)
[2019-06-02] MEDS: MAGNESIUM OXIDE 400 MG TAB PO SCH (06:26)
[2019-06-02 07:04] LABS: Hematocrit (blood only) 39.3 % (42-52); Hemoglobin 13.3 g/dL (14.0-18.0); Mean Corpuscular Hemoglobin 30.2 pg (25-34); Mean Corpuscular Hgb Conc 33.8 g/dL (32-36); Mean Corpuscular Volume 89.1 fL (80-100); Mean Platelet Volume 9.5 fL (7.4-10.4); Platelet Count 206 K/uL (130-400); RDW Coefficient of Variation 13.7 % (11.5-14.5); RDW Standard Deviation 44.8 fL (36.4-46.3); Red Blood Count 4.41 M/uL (4.7-6.1); White Blood Count 7.67 K/uL (4.8-10.8)
[2019-06-02 07:10] LABS: Prothrombin Time 28.1 Seconds (9.0-12.0)
[2019-06-02 07:31] LABS: BUN Creatinine Ratio 12.2 (10-20); Calcium 9.2 mg/dl (8.5-10.1); Creatinine Clr Calc Pharmacy 94.6 ml/min; Magnesium 1.8 mg/dl (1.8-2.4); Potassium 3.3 mmol/L (3.5-5.1)
[2019-06-02] MEDS ORDERED: POTASSIUM CHLORIDE 20 MEQ TABCR PO ONE (07:48)
[2019-06-02] MEDS: DOXYCYCLINE HYCLATE 100 MG CAP PO SCH ×2 (08:02→20:38)
[2019-06-02] MEDS: LISINOPRIL 40 MG TAB PO SCH (08:03)
[2019-06-02] MEDS: METOPROLOL SUCC 50MG EXT REL TAB PO SCH (08:03)
[2019-06-02] MEDS: ROSUVASTATIN CALCIUM 20 MG TAB PO SCH (08:04)
[2019-06-02] MEDS: BUMETANIDE 1 MG TAB PO SCH (08:04)
[2019-06-02] MEDS: AMLODIPINE BESYLATE 5 MG TAB PO SCH (08:04)
[2019-06-02] MEDS: ALLOPURINOL 100 MG TAB PO SCH ×2 (08:04→20:37)
[2019-06-02] MEDS: PANTOprazole 40 MG TAB PO SCH (08:05)
[2019-06-02] MEDS: INSULIN ASPART 100 UNITS/ML 3 ML PEN SC SCH ×4 (08:07→20:38)
--- NOTE | 2019-06-02 11:19 | Cardiology Progress Note ---
Date of Service June 02, 2019 Assessment & Plan (1) CAD (coronary artery disease): Will start aspirin 81 mg daily today Continue rosuvastatin for now we will likely need to increase dose prior to discharge (2) Dyspnea on exertion: His symptoms are very concerning for unstable angina and given his history of coronary artery disease by cardiac catheterization over 13 years ago I do believe further ischemic work-up is warranted at this time. I believe the most prudent course of action would be for direct visualization of his coronary anatomy by cardiac catheterization which will tentatively be planned for 06/03/2019. He has been made NPO after midnight. Patient is in agreement with plan. His INR is 3 today, will give small dose of vitamin k, 2.5mg po, now. Ideally would like INR <2.5 for radial access and <2 for possible groin access (3) LBBB (left bundle branch block): Chronic Nonspecific inferior ST segment changes (4) Paroxysmal A-fib: stable will resume coumadin s/p cath (5) Congestive heart failure: Diastolic dysfunction with normal LV systolic function does not examine his volume overload at this time We will follow volume status clinically Subjective Pt seen and examined, events of overnight reviewed. States abdominal pain has improved, no difficulty lying still at this point. Denies cp, sob, palpitations, lightheadedness or dizziness. Has not ambulated much. tele reviewed: afib rate controlled with underlying LBBB pattern Review of Systems Review of Systems: All systems reviewed & are unremarkable except as noted in HPI & below Physical Exam Physical Exam: General: Awake, alert and oriented x 3. No acute distress. HEENT: Normocephalic, atraumatic. Pupils equal, round and reactive to light and accommodation. Extraocular muscles are intact. Anicteric sclera. Moist mucous membranes. Neck: No JVD. No bruit. Cardiovascular: irregularly irregular, unable to appreciate murmur, rub or gallop. Pulmonary: Clear to auscultation bilaterally. No rales, rhonchi, or wheezing. Abdomen: Bowel sounds x 4, soft. No rebound, guarding or tenderness. No organomegaly. Extremities: No clubbing, cyanosis or edema. +2 pedal pulses bilaterally. Skin: Warm and dry. Results & Data Vital Signs (Past 12 Hours) Vital Signs Temp Pulse Resp BP Pulse Ox 06/02/19 11:11 36.4 C L 74 16 134/73 92 06/02/19 07:30 36.7 C 70 16 151/79 H 93 06/02/19 04:34 36.7 C 65 20 146/86 H 94 Laboratory Results Laboratory Results - last 24 hr 06/01/19 06/01/19 06/01/19 11:41 17:16 20:23 WBC RBC Hgb Hct MCV MCH MCHC RDW Std Deviation RDW Coeff of Katie Plt Count MPV PT INR Sodium Potassium Chloride Carbon Dioxide Anion Gap BUN Creatinine Est Cr Clr Drug Dosing Est GFR ( Amer) Est GFR (Non-Af Amer) BUN/Creatinine Ratio Glucose POC Glucose 167 H 93 142 H Calcium Magnesium 06/02/19 06/02/19 06/02/19 06:49 06:49 06:49 WBC 7.67 RBC 4.41 L Hgb 13.3 L Hct 39.3 L MCV 89.1 MCH 30.2 MCHC 33.8 RDW Std Deviation 44.8 RDW Coeff of Katie 13.7 Plt Count 206 MPV 9.5 PT 28.1 H INR 3.0 H Sodium 139 Potassium 3.3 L Chloride 103 Carbon Dioxide 28 Anion Gap 7.0 BUN 10 Creatinine 0.80 Est Cr Clr Drug Dosing 94.6 Est GFR ( Amer) 102.0 Est GFR (Non-Af Amer) 88.0 BUN/Creatinine Ratio 12.2 Glucose 140 H POC Glucose Calcium 9.2 Magnesium 1.8 06/02/19 07:50 WBC RBC Hgb Hct MCV MCH MCHC RDW Std Deviation RDW Coeff of Katie Plt Count MPV PT INR Sodium Potassium Chloride Carbon Dioxide Anion Gap BUN Creatinine Est Cr Clr Drug Dosing Est GFR ( Amer) Est GFR (Non-Af Amer) BUN/Creatinine Ratio Glucose POC Glucose 138 H Calcium Magnesium Medications Administered Current Inpatient Medications Acetaminophen (Tylenol) 650 mg PO Q4H PRN PRN Reason: Pain or Fever Stop: 06/30/19 15:04 Albuterol (Ventolin Hfa) 2 puffs INH Q4H PRN PRN Reason: shortness of breath or wheezing Stop: 06/30/19 16:00 Allopurinol (Zyloprim) 100 mg PO BID [facility] Stop: 06/30/19 20:59 Last Admin: 06/02/19 08:04 Dose: 100 mg Documented by: Amlodipine Besylate (Norvasc) 5 mg PO DAILY [facility] Stop: 07/01/19 08:59 Last Admin: 06/02/19 08:04 Dose: 5 mg Documented by: Bumetanide (Bumex) 1 mg PO DAILY [facility] Stop: 07/01/19 08:59 Last Admin: 06/02/19 08:04 Dose: 1 mg Documented by: Calcium Carbonate (Tums) 500 mg PO DAILY@0700,1900 [facility] Stop: 06/30/19 18:59 Last Admin: 06/02/19 06:25 Dose: 500 mg Documented by: Dextrose (Dextrose 50%) 25 - 50 ml IV UD PRN; Protocol PRN Reason: Hypoglycemia Protocol Stop: 06/30/19 15:31 Doxycycline Hyclate (Vibramycin) 100 mg PO BID [facility] Stop: 06/07/19 15:59 Last Admin: 06/02/19 08:02 Dose: 100 mg Documented by: Glucagon (Glucagen) 1 mg SQ UD PRN; Protocol PRN Reason: Hypoglycemia Protocol Stop: 06/30/19 15:31 Glucose (Dex4 Glucose) 4 - 8 tabs PO UD PRN; Protocol PRN Reason: Hypoglycemia Protocol Stop: 06/30/19 15:31 Glucose (Glucose 40%) 15 - 30 gm PO UD PRN; Protocol PRN Reason: Hypoglycemia Protocol Stop: 06/30/19 15:31 Piperacillin Sod/Tazobactam (Sod 3.375 gm/ Dextrose) 115 mls @ 28 mls/hr IV Q8H [facility]; Protocol Stop: 06/12/19 01:59 Last Admin: 06/02/19 10:42 Dose: 28 mls/hr Documented by: Insulin Aspart (Novolog Flexpen) 0 units SC ACHS [facility] Stop: 06/30/19 16:29 Last Admin: 06/02/19 08:07 Dose: 2 units Documented by: Ioversol (Optiray 320 100ml) 93 ml IV ONCE PRN PRN Reason: Interaction Checking Stop: 06/05/19 17:05 Last Admin: 06/01/19 17:07 Dose: 93 ml Documented by: Lisinopril (Zestril) 40 mg PO DAILY [facility] Stop: 07/01/19 08:59 Last Admin: 06/02/19 08:03 Dose: 40 mg Documented by: Magnesium Oxide (Mag-Ox) 400 mg PO DAILY@0700 [facility] Stop: 07/01/19 06:59 Last Admin: 06/02/19 06:26 Dose: 400 mg Documented by: Metoprolol Succinate (Toprol Xl) 200 mg PO DAILY [facility] Stop: 07/01/19 08:59 Last Admin: 06/02/19 08:03 Dose: 200 mg Documented by: Miscellaneous (Carbohydrates For Hypoglycemia) 15 - 30 gm PO UD PRN PRN Reason: Hypoglycemia Protocol Stop: 06/30/19 15:31 Miscellaneous Information (Consult) 1 ea N/A UD PRN PRN Reason: Consult Stop: 07/01/19 20:04 Ondansetron HCl (Zofran) 4 mg IV Q6H PRN PRN Reason: Nausea Stop: 06/30/19 15:04 Pantoprazole Sodium (Protonix) 40 mg PO DAILY [facility]; Protocol Stop: 07/01/19 08:59 Last Admin: 06/02/19 08:05 Dose: 40 mg Documented by: Phytonadione (Mephyton) 2.5 mg PO NOW [facility] Stop: 06/02/19 11:21 Polyethylene Glycol (Miralax Powder Packet) 17 gm PO DAILY PRN PRN Reason: Constipation Stop: 06/30/19 15:04 Rosuvastatin Calcium (Crestor) 20 mg PO DAILY [facility] Stop: 07/01/19 08:59 Last Admin: 06/02/19 08:04 Dose: 20 mg Documented by: (1) Congestive heart failure Heart failure chronicity: acute Heart failure type: unspecified Qualified Code(s): I50.9 - Heart failure, unspecified
[2019-06-02] MEDS ORDERED: PHYTONADIONE 5 MG TAB PO STA (11:20)
--- NOTE | 2019-06-02 14:31 | Hospitalist Progress Note ---
Date of Service June 02, 2019 Assessment & Plan (1) Dyspnea on exertion: Patient presented with dyspnea on exertion. Diagnostic considerations include congestive heart failure, myocardial ischemia, lower respiratory tract infection. Pulmonary embolism very unlikely with warfarin therapy and normal d-dimer. Specific problems are addressed below. (2) CAD (coronary artery disease): History of coronary artery disease. Cardiac cath 2006 80% stenosis 1st diagonal, luminal irregularities of LAD and 2nd diagonal. Medical management recommended. Nuclear stress test 2016 showed normal perfusion, LVEF 68%. Current symptoms of dyspnea on exertion and epigastric discomfort may be secondary to myocardial ischemia. EKG shows chronic atrial fibrillation, rate controlled, left bundle branch block, inferior and lateral ST and T wave abnormalities. Serum troponins negative x3. Echocardiogram did not show any wall motion abnormalities except for abnormal septal wall motion consistent with LBBB pattern. Cardiology consulted. Aspirin added to regimen. Continue metoprolol and statin. Cardiac cath recommended and tentatively planned for tomorrow. (3) Congestive heart failure: Patient experiencing dyspnea on exertion associated with weight gain. Chest x-ray showed cardiomegaly and suspected mild vascular congestion. BNP elevated. Echocardiogram showed normal left ventricular systolic function, but grade II diastolic dysfunction. Suspected acute on chronic left ventricular diastolic heart failure. Titrate diuretics. (4) Atrial fibrillation: Chronic atrial fibrillation, rate controlled on metoprolol. Anticoagulated on warfarin (being held because of supratherapeutic INR and possible need for cardiac catheterization). (5) Hypertension: Continue metoprolol, lisinopril, amlodipine. (6) Cough: Mild cough productive of clear sputum. No fever. Chest x-ray interpreted as possible bibasilar pneumonia, but clinical suspicion low. Continue doxycycline for possible tracheobronchitis. (7) COPD, mild: Stable despite possible bronchitis. Continue usual inhalers. (8) SRAVANTHI (obstructive sleep apnea): Continue CPAP. (9) Dyslipidemia: Check lipid profile. Continue rosuvastatin, titrate as necessary. (10) Diverticulitis: Developed abdominal pain afternoon of 06/01. CT demonstrated uncomplicated sigmoid diverticulitis. Bowel rest. IV piperacillin / tazobactam. Advance diet as tolerated and transition to PO Rx once symptoms improved. (11) Hypokalemia: Serum K 3.3. Replace. Follow. (12) DVT prophylaxis: On warfarin for chronic atrial fibrillation. INR supratherapeutic. Warfarin being held for possible cardiac catheterization. Add SCDs when INR subtherapeutic. (13) Discharge planning issues: Anticipated discharge to home. Family Medicine follow-up with Dr. Kaminski. Cardiology follow-up with Dr. Dickey. Subjective Recheck for multiple problems. Patient seen in their room around 1030 Developed LLQ abdominal pain yesterday. CT demonstrated sigmoid diverticulitis without perforation. Started on IV piperacillin / tazobactam. Pain improved today. No nausea, vomiting, diarrhea, melena, hematochezia. Occasional cough productive of clear sputum. No chest pain. Still feels SOB at times. Review of Systems: Constitutional- no fever. Cardiac- as noted above. Pulmonary- as noted above. GI- as noted above. - no urinary symptoms. Otherwise, as noted above. Physical Exam Constitutional: no acute distress Eyes: + anicteric sclerae Respiratory: no respiratory distress Auscultation: lungs clear to auscultation bilaterally Cardiovascular: Rate/Rhythm: regular rate and regular rhythm Heart Sounds: no gallop, no murmur and no cardiac rub Vessels: + JVD Extremities: + edema (trace pretibial); no calf tenderness Gastrointestinal (Abdomen): Inspection/Auscultation: normal bowel sounds Percussion/Palpation: + abdomen tender (mild LLQ tenderness) and abdomen soft Skin: no rashes, warm and dry Psychiatric: Orientation: alert and oriented x 3 Results & Data Vital Signs (Past 12 Hours) Vital Signs Temp Pulse Resp BP Pulse Ox 06/02/19 11:11 36.4 C L 74 16 134/73 92 06/02/19 07:30 36.7 C 70 16 151/79 H 93 06/02/19 04:34 36.7 C 65 20 146/86 H 94 Laboratory Results Laboratory Results - last 24 hr 06/01/19 06/01/19 06/02/19 17:16 20:23 06:49 WBC 7.67 RBC 4.41 L Hgb 13.3 L Hct 39.3 L MCV 89.1 MCH 30.2 MCHC 33.8 RDW Std Deviation 44.8 RDW Coeff of Katie 13.7 Plt Count 206 MPV 9.5 PT INR Sodium Potassium Chloride Carbon Dioxide Anion Gap BUN Creatinine Est Cr Clr Drug Dosing Est GFR ( Amer) Est GFR (Non-Af Amer) BUN/Creatinine Ratio Glucose POC Glucose 93 142 H Calcium Magnesium 06/02/19 06/02/19 06/02/19 06:49 06:49 07:50 WBC RBC Hgb Hct MCV MCH MCHC RDW Std Deviation RDW Coeff of Katie Plt Count MPV PT 28.1 H INR 3.0 H Sodium 139 Potassium 3.3 L Chloride 103 Carbon Dioxide 28 Anion Gap 7.0 BUN 10 Creatinine 0.80 Est Cr Clr Drug Dosing 94.6 Est GFR ( Amer) 102.0 Est GFR (Non-Af Amer) 88.0 BUN/Creatinine Ratio 12.2 Glucose 140 H POC Glucose 138 H Calcium 9.2 Magnesium 1.8 06/02/19 11:55 WBC RBC Hgb Hct MCV MCH MCHC RDW Std Deviation RDW Coeff of Katie Plt Count MPV PT INR Sodium Potassium Chloride Carbon Dioxide Anion Gap BUN Creatinine Est Cr Clr Drug Dosing Est GFR ( Amer) Est GFR (Non-Af Amer) BUN/Creatinine Ratio Glucose POC Glucose 158 H Calcium Magnesium (1) Congestive heart failure Heart failure chronicity: acute Heart failure type: unspecified Qualified Code(s): I50.9 - Heart failure, unspecified
[2019-06-03] MEDS: PIPERACILLIN/TAZOBACTAM 3.375 GM in DEXTROSE 5% 100 ML IV SCH ×3 (02:05→16:38)
[2019-06-03] MEDS: MAGNESIUM OXIDE 400 MG TAB PO SCH (06:10)
[2019-06-03] MEDS: CALCIUM CARBONATE 500 MG CHEWABLE TAB PO SCH ×2 (06:10→17:36)
[2019-06-03 06:40] LABS: Hematocrit (blood only) 42.2 % (42-52); Hemoglobin 14.2 g/dL (14.0-18.0); Mean Corpuscular Hemoglobin 30.5 pg (25-34); Mean Corpuscular Hgb Conc 33.6 g/dL (32-36); Mean Corpuscular Volume 90.6 fL (80-100); Mean Platelet Volume 10.2 fL (7.4-10.4); Platelet Count 203 K/uL (130-400); RDW Coefficient of Variation 13.6 % (11.5-14.5); RDW Standard Deviation 44.8 fL (36.4-46.3); Red Blood Count 4.66 M/uL (4.7-6.1); White Blood Count 4.69 K/uL (4.8-10.8)
[2019-06-03 06:50] LABS: INR 2.1 (0.9-1.1); Prothrombin Time 20.2 Seconds (9.0-12.0)
[2019-06-03 07:06] LABS: BUN Creatinine Ratio 8.6 (10-20); Calcium 9.5 mg/dl (8.5-10.1); Creatinine Clr Calc Pharmacy 95.8 ml/min; Est GFR (African American) 102.5; Est GFR (Non-African American) 88.5; Potassium 3.4 mmol/L (3.5-5.1)
[2019-06-03] MEDS: DOXYCYCLINE HYCLATE 100 MG CAP PO SCH ×2 (08:54→21:01)
[2019-06-03] MEDS: ROSUVASTATIN CALCIUM 20 MG TAB PO SCH (08:54)
[2019-06-03] MEDS: METOPROLOL SUCC 50MG EXT REL TAB PO SCH (08:55)
[2019-06-03] MEDS: PANTOprazole 40 MG TAB PO SCH (08:55)
[2019-06-03] MEDS: LISINOPRIL 40 MG TAB PO SCH (08:55)
[2019-06-03] MEDS: ALLOPURINOL 100 MG TAB PO SCH ×2 (08:56→21:01)
[2019-06-03] MEDS: AMLODIPINE BESYLATE 5 MG TAB PO SCH (08:57)
[2019-06-03] MEDS: BUMETANIDE 1 MG TAB PO SCH (08:58)
--- NOTE | 2019-06-03 09:11 | Cardiology Progress Note ---
Date of Service June 03, 2019 Assessment & Plan (1) Atrial fibrillation: (2) Congestive heart failure: (3) Dyspnea on exertion: (4) CAD (coronary artery disease): (5) LBBB (left bundle branch block): The patient presented with new angina and heart failure. He has known coronary artery disease and I agreed that a repeat cardiac catheterization is indicated. I explained the risk, benefit and intent of the procedure to him and he is willing to proceed however, his INR today is 2.1 despite being given vitamin K yesterday. We will wait an additional 24 hours until his INR is fully recovered before proceeding with a cardiac catheterization. Subjective The patient has no new cardiac complaints today. He is feeling improved since his admission. Review of Systems Review of Systems: All systems reviewed & are unremarkable except as noted in HPI & below Nothing additional. Physical Exam Physical Exam: General: no acute distress and stated age Head: normocephalic, no masses, lesions, tenderness or abnormalities Eyes: conjunctiva are pink and non-injected, sclera clear Neck: supple, no adenopathy, no bruits, normal jugular venous pulse, no hepatojugular reflux Chest: normal shape and normal respiratory effort Lungs: clear to auscultation and percussion Cardiac Exam: - regular rate & rhythm, no murmurs gallops or rubs - normal S1, normal S2 Pulses: 2(+) throughout Abdomen: abdomen soft, non-tender, no abnormal masses and no hepatosplenomegaly Musculoskeletal: no gait disturbance, no joint inflammation, no deforming arthritis Extremities: no edema and no cyanosis Neuro: grossly normal exam Results & Data Vital Signs (Past 12 Hours) Vital Signs Temp Pulse Pulse Resp BP Pulse Ox 06/03/19 07:13 36.7 C 72 16 147/90 H 93 06/03/19 03:40 36.6 C 129/60 06/03/19 02:57 83 18 93 06/02/19 23:07 35.7 C L 54 L 18 137/87 94 06/02/19 22:20 18 95 Laboratory Results Laboratory Results - last 24 hr 06/02/19 06/02/19 06/02/19 11:55 16:56 20:28 WBC RBC Hgb Hct MCV MCH MCHC RDW Std Deviation RDW Coeff of Katie Plt Count MPV PT INR Sodium Potassium Chloride Carbon Dioxide Anion Gap BUN Creatinine Est Cr Clr Drug Dosing Est GFR ( Amer) Est GFR (Non-Af Amer) BUN/Creatinine Ratio Glucose POC Glucose 158 H 104 H 132 H Calcium Triglycerides Cholesterol LDL Cholesterol, Calc VLDL Cholesterol, Calc HDL Cholesterol Cholesterol/HDL Ratio 06/03/19 06/03/19 06/03/19 00:38 06:09 06:09 WBC 4.69 L RBC 4.66 L Hgb 14.2 Hct 42.2 MCV 90.6 MCH 30.5 MCHC 33.6 RDW Std Deviation 44.8 RDW Coeff of Katie 13.6 Plt Count 203 MPV 10.2 PT 20.2 H INR 2.1 H Sodium Potassium Chloride Carbon Dioxide Anion Gap BUN Creatinine Est Cr Clr Drug Dosing Est GFR ( Amer) Est GFR (Non-Af Amer) BUN/Creatinine Ratio Glucose POC Glucose 140 H Calcium Triglycerides Cholesterol LDL Cholesterol, Calc VLDL Cholesterol, Calc HDL Cholesterol Cholesterol/HDL Ratio 06/03/19 06/03/19 06:09 07:27 WBC RBC Hgb Hct MCV MCH MCHC RDW Std Deviation RDW Coeff of Katie Plt Count MPV PT INR Sodium 139 Potassium 3.4 L Chloride 105 Carbon Dioxide 28 Anion Gap 6.0 BUN 7 Creatinine 0.79 Est Cr Clr Drug Dosing 95.8 Est GFR ( Amer) 102.5 Est GFR (Non-Af Amer) 88.5 BUN/Creatinine Ratio 8.6 L Glucose 136 H POC Glucose 136 H Calcium 9.5 Triglycerides 139 Cholesterol 106 LDL Cholesterol, Calc 41 VLDL Cholesterol, Calc 28 HDL Cholesterol 37 Cholesterol/HDL Ratio 3 Medications Administered Current Inpatient Medications Acetaminophen (Tylenol) 650 mg PO Q4H PRN PRN Reason: Pain or Fever Stop: 06/30/19 15:04 Albuterol (Ventolin Hfa) 2 puffs INH Q4H PRN PRN Reason: shortness of breath or wheezing Stop: 06/30/19 16:00 Allopurinol (Zyloprim) 100 mg PO BID [facility] Stop: 06/30/19 20:59 Last Admin: 06/03/19 08:56 Dose: 100 mg Documented by: Amlodipine Besylate (Norvasc) 5 mg PO DAILY [facility] Stop: 07/01/19 08:59 Last Admin: 06/03/19 08:57 Dose: 5 mg Documented by: Bumetanide (Bumex) 1 mg PO DAILY [facility] Stop: 07/01/19 08:59 Last Admin: 06/03/19 08:58 Dose: 1 mg Documented by: Calcium Carbonate (Tums) 500 mg PO DAILY@0700,1900 [facility] Stop: 06/30/19 18:59 Last Admin: 06/03/19 06:10 Dose: 500 mg Documented by: Dextrose (Dextrose 50%) 25 - 50 ml IV UD PRN; Protocol PRN Reason: Hypoglycemia Protocol Stop: 06/30/19 15:31 Doxycycline Hyclate (Vibramycin) 100 mg PO BID [facility] Stop: 06/07/19 15:59 Last Admin: 06/03/19 08:54 Dose: 100 mg Documented by: Glucagon (Glucagen) 1 mg SQ UD PRN; Protocol PRN Reason: Hypoglycemia Protocol Stop: 06/30/19 15:31 Glucose (Dex4 Glucose) 4 - 8 tabs PO UD PRN; Protocol PRN Reason: Hypoglycemia Protocol Stop: 06/30/19 15:31 Glucose (Glucose 40%) 15 - 30 gm PO UD PRN; Protocol PRN Reason: Hypoglycemia Protocol Stop: 06/30/19 15:31 Piperacillin Sod/Tazobactam (Sod 3.375 gm/ Dextrose) 115 mls @ 28 mls/hr IV Q8H [facility]; Protocol Stop: 06/12/19 01:59 Last Admin: 06/03/19 09:01 Dose: 28 mls/hr Documented by: Potassium Chloride (K Jhony / Wtr) 10 meq in 100 mls @ 100 mls/hr IV Q1H [facility] Stop: 06/03/19 10:59 Insulin Aspart (Novolog Flexpen) 0 units SC ACHS [facility] Stop: 06/30/19 16:29 Last Admin: 06/02/19 20:38 Dose: Not Given Documented by: Ioversol (Optiray 320 100ml) 93 ml IV ONCE PRN PRN Reason: Interaction Checking Stop: 06/05/19 17:05 Last Admin: 06/01/19 17:07 Dose: 93 ml Documented by: Lisinopril (Zestril) 40 mg PO DAILY [facility] Stop: 07/01/19 08:59 Last Admin: 06/03/19 08:55 Dose: 40 mg Documented by: Magnesium Oxide (Mag-Ox) 400 mg PO DAILY@0700 [facility] Stop: 07/01/19 06:59 Last Admin: 06/03/19 06:10 Dose: 400 mg Documented by: Metoprolol Succinate (Toprol Xl) 200 mg PO DAILY [facility] Stop: 07/01/19 08:59 Last Admin: 06/03/19 08:55 Dose: 200 mg Documented by: Miscellaneous (Carbohydrates For Hypoglycemia) 15 - 30 gm PO UD PRN PRN Reason: Hypoglycemia Protocol Stop: 06/30/19 15:31 Miscellaneous Information (Consult) 1 ea N/A UD PRN PRN Reason: Consult Stop: 07/01/19 20:04 Ondansetron HCl (Zofran) 4 mg IV Q6H PRN PRN Reason: Nausea Stop: 06/30/19 15:04 Pantoprazole Sodium (Protonix) 40 mg PO DAILY [facility]; Protocol Stop: 07/01/19 08:59 Last Admin: 06/03/19 08:55 Dose: 40 mg Documented by: Polyethylene Glycol (Miralax Powder Packet) 17 gm PO DAILY PRN PRN Reason: Constipation Stop: 06/30/19 15:04 Rosuvastatin Calcium (Crestor) 20 mg PO DAILY [facility] Stop: 07/01/19 08:59 Last Admin: 06/03/19 08:54 Dose: 20 mg Documented by: (1) Congestive heart failure Heart failure chronicity: acute Heart failure type: unspecified Qualified Code(s): I50.9 - Heart failure, unspecified
[2019-06-03] MEDS ORDERED: PHYTONADIONE 5 MG TAB PO STA (10:03)
[2019-06-03] MEDS: INSULIN ASPART 100 UNITS/ML 3 ML PEN SC SCH ×4 (10:28→21:48)
[2019-06-03] MEDS: POTASSIUM CHLORIDE / WTR 10 MEQ/100 ML PLCT IV SCH ×2 (10:40→12:27)
[2019-06-03] MEDS ORDERED: POTASSIUM CHLORIDE 20 MEQ TABCR PO ONE (13:00)
[2019-06-03] MEDS ORDERED: BUMETANIDE 1 MG TAB PO SCH (13:00)
--- NOTE | 2019-06-03 14:29 | Hospitalist Progress Note ---
Date of Service June 03, 2019 Assessment & Plan (1) Dyspnea on exertion: Patient presented with dyspnea on exertion. Possible related to congestive heart failure vs myocardial ischemia vs lower respiratory tract infection. CXR showed patchy right greater than left bibasilar opacities suggest atelectasis or pneumonitis Pulmonary embolism very unlikely with warfarin therapy and normal d-dimer. Continue IV Zosyn and doxy for now Clinically improves (2) CAD (coronary artery disease): Cardiac cath 2005 showed 80% stenosis 1st diagonal, luminal irregularities of LAD and 2nd diagonal. Medical management recommended. Nuclear stress test 2016 showed normal perfusion, LVEF 68%. Current symptoms of dyspnea on exertion and epigastric discomfort may be secondary to myocardial ischemia. EKG shows chronic atrial fibrillation, rate controlled, left bundle branch block, inferior and lateral ST and T wave abnormalities. Troponins negative x3. Echocardiogram did not show any wall motion abnormalities except for abnormal septal wall motion consistent with LBBB pattern. Cardiology on board Plan for cardiac cath in am if INR under 1.5 Vit K given again today . Continue metoprolol, statin and statin. NPO after midnight (3) Congestive heart failure: Worsening dyspnea on exertion associated with weight gain. Chest x-ray showed cardiomegaly without overt pulmonary edema. BNP elevated. Echocardiogram showed normal left ventricular systolic function, but grade II diastolic dysfunction. Continue bumetanide daily stable (4) Atrial fibrillation: Chronic atrial fibrillation rate controlled on metoprolol. Anticoagulated on warfarin that is held due to cardiac cath tomorrow INR 2.1 today, received vit K today (5) Hypertension: BP stable Continue metoprolol, lisinopril, amlodipine. (6) Cough: Chest x-ray interpreted as possible bibasilar pneumonia, but clinical suspicion low. Continue doxycycline for possible tracheobronchitis. (7) COPD, mild: Stable despite possible bronchitis. Continue usual inhalers. (8) SRAVANTHI (obstructive sleep apnea): Continue CPAP. (9) Dyslipidemia: Continue rosuvastatin (10) Diverticulitis: Developed abdominal pain afternoon of 06/01. CT demonstrated uncomplicated sigmoid diverticulitis. Continue IV piperacillin / tazobactam. Will transition to oral Augmentin on discharge (11) Hypokalemia: K 3.4 K replaced Monitor BMP (12) DVT prophylaxis: Coumadin hold today INR 2.1 today Add SCDs when INR subtherapeutic. (13) Discharge planning issues: Anticipated discharge to home. Family Medicine follow-up with Dr. Kaminski. Cardiology follow-up with Dr. Dickey. Subjective Pt was seen and examined. Lying in bed with no distress eating lunch. Pt said that he feels much better He said that he wants to get the cardiac cath done that he can be done with that Denies any chest pain, palpitation and dizziness Physical Exam Physical Exam: General- No acute distress Head- atraumatic Eyes- PERRL, EOMI, ENT- oropharynx clear Neck- supple, no JVD Lungs- clear to auscultation Heart- regular rhythm; no murmur Abdomen- normal bowel sounds, soft, nontender Extremities- no calf tenderness, +trace edema Neuro- alert, oriented x 3; PERRL, EOMI; no facial palsy; no dysarthria Skin- warm & dry Results & Data Vital Signs (Past 12 Hours) Vital Signs Temp Pulse Pulse Resp BP BP Pulse Ox 06/03/19 11:20 36.5 C 61 18 138/81 93 06/03/19 11:12 36.5 C 67 16 137/82 94 06/03/19 07:13 36.7 C 72 16 147/90 H 93 06/03/19 03:40 36.6 C 129/60 06/03/19 02:57 83 18 93 (1) Congestive heart failure Heart failure chronicity: acute Heart failure type: unspecified Qualified Code(s): I50.9 - Heart failure, unspecified
[2019-06-04] MEDS: PIPERACILLIN/TAZOBACTAM 3.375 GM in DEXTROSE 5% 100 ML IV SCH ×3 (02:32→17:52)
[2019-06-04 06:36] LABS: INR 1.6 (0.9-1.1); Prothrombin Time 16.1 Seconds (9.0-12.0)
[2019-06-04 07:06] LABS: BUN Creatinine Ratio 8.4 (10-20); Calcium 9.2 mg/dl (8.5-10.1); Creatinine Clr Calc Pharmacy 90.3 ml/min; Est GFR (African American) 100.5; Est GFR (Non-African American) 86.7; Potassium 3.3 mmol/L (3.5-5.1)
[2019-06-04] MEDS ORDERED: MIDAZOLAM HCL 1 MG/ML 2ML VIAL ONE (07:43)
[2019-06-04] MEDS ORDERED: fentaNYL citrate 100 MCG/2 ML VIAL ONE (07:43)
[2019-06-04] MEDS ORDERED: HEPARIN (PORCINE) 1000 UNIT/ML 10 ML (CATH LAB USE ONLY) ONE ×2 (07:46→09:09)
[2019-06-04] MEDS ORDERED: NITROGLYCERIN/D5W 100MCG/ML 20ML SYR ONE (07:46)
[2019-06-04] MEDS ORDERED: NiCARDipine HCL INJ 2.5 MG/ML 10 ML AMP ONE (07:46)
--- NOTE | 2019-06-04 08:56 | Cardiac Catheterization ---
Date of Service June 04, 2019 Cardiac Cath Report Cardiac Cath Report Procedure: 1. Coronary angiography History: This is a 74-year-old male patient who presented with dyspnea on exertion and a left bundle branch block. His symptoms were consistent enough with an angina equivalent that it was decided to proceed with a cardiac catheterization. Procedure summary: After informed consent was obtained the patient was brought to the cardiac catheterization lab where access was obtained using a retrograde cylinder technique from the right radial artery. Preformed 5 Maltese diagnostic catheters were utilized for the coronary angiograms. Following the procedure the patient underwent coronary intervention and then was returned to his room in stable condition. ACC data: Start time 8:06 AM End time 8:40 AM Opening aortic pressure 129/90 Closing aortic pressure 141/91 LV pressurevalve not crossed IV sedation Versed 1 mg IV fluid 50 cc normal saline Contrast 87 cc Optiray Fluoroscopy time 4.8 minutes Radiation 1792 mGy DAP 111.24 mGy/cm Right dominant system AUC score 6 Coronary angiography: Selective injections of the left coronary artery revealed a left main trunk to be widely patent. The LAD extends all the way to the apex of the heart. The LAD gives off several small to medium size marginal branches. The LAD has mild luminal irregularities in its proximal and mid segment consistent with minor coronary artery disease with the remainder the artery being widely patent. The diagonal branches are also widely patent. The left circumflex artery consists of a high ramus branch which is large and widely patent. There is a second marginal branch that supplies the posterior myocardium which is also widely patent. There is evidence of left to right collateral flow to the distal right coronary artery with injections of the left coronary system. Selective in jections of the right coronary artery revealed to be diffusely diseased. The right coronary artery is dominant. In the mid segment of the right coronary artery there is a 50% stenosis. There is a high takeoff of the posterior lateral branch and in the midportion of this artery there is a long high-grade stenoses. Summary: The patient has mild diffuse disease with the most significant being in the posterior lateral branch of the right coronary artery. The posterior lateral branch is large and long with a high takeoff. The remainder the coronary anatomy has nonobstructive disease. Recommendations: The recommendation is for evaluation regarding coronary intervention on the posterior lateral branch of the right coronary artery.
--- NOTE | 2019-06-04 09:33 | Post Anesthesia Assessment ---
Date of Service June 04, 2019 Post Sedation Assessment Vital Signs Temp Pulse Pulse Pulse Resp BP BP 06/04/19 07:30 98.1 F 61 95 H 16 154/95 H 06/04/19 07:26 61 06/04/19 07:21 97.9 F 74 18 152/94 H 06/04/19 04:56 97.5 F L 56 L 18 131/79 06/03/19 23:28 06/03/19 23:00 96.6 F L 76 18 152/82 H 06/03/19 19:03 97.9 F 59 L 18 150/79 H 06/03/19 16:00 57 L 145/88 H 06/03/19 15:37 97.5 F L 73 16 189/103 H 06/03/19 11:20 97.7 F 61 18 138/81 06/03/19 11:12 97.7 F 67 16 137/82 Pulse Ox 06/04/19 07:30 95 06/04/19 07:26 06/04/19 07:21 95 06/04/19 04:56 94 06/03/19 23:28 91 06/03/19 23:00 91 06/03/19 19:03 93 06/03/19 16:00 06/03/19 15:37 94 06/03/19 11:20 93 06/03/19 11:12 94 Recovery Score Activity: Moves 4 extremities Respiration: Deep Breath/Cough Circulation: +/-20% PreAnes Value Consciousness: Fully Awake Oxygen Saturation: O2 needed for >90% Discharge Sedation Level of Care: Fast Track Phase II
--- NOTE | 2019-06-04 09:40 | Cardiac Catheterization ---
[facility] Data: Food Service Coordinator Cardiac Status Clinical evaluation leading to the procedure CAD Presenation: Unstable angina Anginal Classification: CCS III Heart Failure: NYHA Class: CCS II Cardiogenic Shock within 24 Hours: No Cardiac Arrest within 24 Hours: No Imaging Studies Past 6 Months: Yes Stress Studies Past 6 Months: No Diagnostic Physicians Name: Aris Garcia MD Status: Elective Closure Device Percutaneous Entry Location: Radial Closure Device: Radial Band Recommendations: Medical Therapy and/or Counseling Intraprocedure Events Significant Disection: No Perforation: No Cardiac Cath Procedure Full Procedure Date June 04, 2019 Pre-Procedure Diagnosis Pre-Procedure Diagnosis: Angina AUC Score AUC Score: 7 Post-Procedure Diagnosis Post-Procedure Diagnosis: Severe CAD and Unsuccessful PCI Procedure(s) Performed Procedure(s) Performed: Coronary Angiography Senior Property Accountant Aris Garcia MD Account Services Coordinator(s) [place] Estimated Blood Loss Estimated Blood Loss: 10 Medication(s) Medication(s): Fentanyl, Heparin, Lidocaine 1%, Nicardipine, Nitroglycerin and Versed Summary of Findings For full details of patient's of patient's coronary angiography please see cath report dictated by Dr. Jackson. Briefly, patient found to have a severe stenosis in the distal RCA. Decision to attempt PCI. Procedure: - Right radial access with 6FR sheath - RCA cannulated with JR4 guide and telescope support catheter. - Heparin to target ACT > 250 - Distal RCA lesion eventually crossed with long whisper wire. - Distal RCA lesion noted to be heavily calcified and unable to pass 2.0 OTW balloon across lesion. - Procedure aborted. No apparent coronary complications. Summary: 1. Unsuccessful PCI of distal RCA due to inability to pass balloon across heavily calcified lesion. Recommendations: - Maximize antianginal regimen. - If refractory symptoms in the future could consider repeat PCI attempt from groin likely with atherectomy. Hemodynamics Rest Ao:: 129/90/108 Final Ao: 141/91/113 LV: -- Recommendations Recommendations: Medical Therapy and/or Counseling Specimens Specimens: None Radiation Exposure (mGy) 1792 Contrast (mls) 87 Fluids (cc crystalloids) Fluids (cc crystalloids): 50 Drains Drains: none Anesthesia moderate Procedural Complication(s) None Disposition PCU I attest to the content of the Intraoperative Record and any orders documented therein. Any exceptions are noted below.
[2019-06-04] MEDS: AMLODIPINE BESYLATE 5 MG TAB PO SCH (10:19)
[2019-06-04] MEDS: METOPROLOL SUCC 50MG EXT REL TAB PO SCH (10:19)
[2019-06-04] MEDS: PANTOprazole 40 MG TAB PO SCH (10:19)
[2019-06-04] MEDS: MAGNESIUM OXIDE 400 MG TAB PO SCH (10:20)
[2019-06-04] MEDS: BUMETANIDE 1 MG TAB PO SCH (10:20)
[2019-06-04] MEDS: ALLOPURINOL 100 MG TAB PO SCH ×2 (10:20→21:00)
[2019-06-04] MEDS: ROSUVASTATIN CALCIUM 20 MG TAB PO SCH (10:20)
[2019-06-04] MEDS: CALCIUM CARBONATE 500 MG CHEWABLE TAB PO SCH ×2 (10:20→18:36)
[2019-06-04] MEDS: DOXYCYCLINE HYCLATE 100 MG CAP PO SCH ×2 (10:20→21:00)
[2019-06-04] MEDS: LISINOPRIL 40 MG TAB PO SCH (10:20)
[2019-06-04] MEDS: INSULIN ASPART 100 UNITS/ML 3 ML PEN SC SCH ×4 (10:21→20:59)
[2019-06-04] MEDS: POTASSIUM CHLORIDE / WTR 10 MEQ/100 ML PLCT IV SCH ×2 (10:21→10:57)
[2019-06-04] MEDS ORDERED: POTASSIUM CHLORIDE 20 MEQ TABCR PO STA (11:02)
--- NOTE | 2019-06-04 12:44 | Cardiology Progress Note ---
Date of Service June 04, 2019 Assessment & Plan (1) Atrial fibrillation: Currently normal sinus rhythm. His INR was reversed with vitamin K and Coumadin will be restarted at this time. Patient should follow-up with [facility] as an outpatient Continue metoprolol (2) Congestive heart failure: In light of the cardiac catheterization results believe his decompensation is due to diastolic dysfunction. At this point medical therapy is most prudent course of action and to that and I will start him on spironolactone 12.5 mg p.o. daily in addition to his daily Bumex. He is already on high-dose evidence-based beta-alfredito and that will be continued. He will be recovered status post catheterization and follow clinically. Discharge to home once symptoms are controlled. (3) Dyspnea on exertion: As above (4) CAD (coronary artery disease): Heavily calcified lesion of the posterior lateral branch of the RCA. The lesion was heavily calcified and unamenable to intervention. Given the heavy calcification this points to chronicity and I do not believe this lesion is a culprit for his acute decompensation. We will treat medically as above. (5) LBBB (left bundle branch block): Chronic. Subjective Patient seen and examined status post cath in the cath recovery area. States he has been feeling well overnight and has not had any chest pain, shortness of breath, palpitations, lightheadedness, dizziness or syncope. telemetry reviewed:Normal sinus rhythm without arrhythmia or significant ectopy Review of Systems Review of Systems: All systems reviewed & are unremarkable except as noted in HPI & below Physical Exam Physical Exam: General: Awake, alert and oriented x 3. No acute distress. HEENT: Normocephalic, atraumatic. Pupils equal, round and reactive to light and accommodation. Extraocular muscles are intact. Anicteric sclera. Moist mucous membranes. Neck: No JVD. No bruit. Cardiovascular: Regular. Positive S-4. Normal S-1 and S-2. No S-3. No murmurs or rubs. Pulmonary: Clear to auscultation B/L. No rales, rhonchi or wheezing Abdomen: Bowel sounds x 4, soft. No rebound, guarding or tenderness. No organomegaly. Extremities: No clubbing, cyanosis or edema. +2 pedal pulses bilaterally. Skin: Warm and dry. Results & Data Vital Signs (Past 12 Hours) Vital Signs Temp Pulse Pulse Pulse Resp BP BP 06/04/19 11:15 87 19 143/80 H 06/04/19 10:53 69 66 17 160/94 H 06/04/19 10:30 58 L 18 151/98 H 06/04/19 10:15 67 17 144/86 H 06/04/19 10:00 36.8 C 63 69 17 159/92 H 06/04/19 09:45 60 20 138/90 06/04/19 09:30 70 20 142/83 H 06/04/19 07:30 36.7 C 61 95 H 16 154/95 H 06/04/19 07:26 61 06/04/19 07:21 36.6 C 74 18 152/94 H 06/04/19 04:56 36.4 C L 56 L 18 131/79 Pulse Ox 06/04/19 11:15 92 06/04/19 10:53 94 06/04/19 10:30 93 06/04/19 10:15 94 06/04/19 10:00 94 06/04/19 09:45 92 06/04/19 09:30 06/04/19 07:30 95 06/04/19 07:26 06/04/19 07:21 95 06/04/19 04:56 94 (1) Congestive heart failure Heart failure chronicity: acute Heart failure type: unspecified Qualified Code(s): I50.9 - Heart failure, unspecified
[2019-06-04] MEDS: SODIUM CHLORIDE 0.9% 500 ML IV SCH ×2 (12:54→20:58)
[2019-06-04] MEDS: SPIRONOLACTONE 25 MG TAB PO SCH (14:00)
--- NOTE | 2019-06-04 18:09 | Hospitalist Progress Note ---
Date of Service June 04, 2019 Assessment & Plan (1) Dyspnea on exertion: Patient presented with dyspnea on exertion. Possible related to congestive heart failure vs myocardial ischemia vs lower respiratory tract infection. CXR showed patchy right greater than left bibasilar opacities suggest atelectasis or pneumonitis Pulmonary embolism very unlikely with warfarin therapy and normal d-dimer. Continue IV Zosyn and doxy for now Clinically improves (2) CAD (coronary artery disease): Cardiac cath 2005 showed 80% stenosis 1st diagonal, luminal irregularities of LAD and 2nd diagonal. Medical management recommended. Nuclear stress test 2016 showed normal perfusion, LVEF 68%. Current symptoms of dyspnea on exertion and epigastric discomfort may be secondary to myocardial ischemia. EKG shows chronic atrial fibrillation, rate controlled, left bundle branch block, inferior and lateral ST and T wave abnormalities. Troponins negative x3. Echocardiogram did not show any wall motion abnormalities except for abnormal septal wall motion consistent with LBBB pattern. Cardiology on board S/P cardiac cath done today showed heavily calcified lesion of the posterior lateral branch of the RCA. Unsuccessful PCI of distal RCA due to inability to pass balloon across heavily calcified lesion. case discussed with cardiology and recommended medical management . Continue metoprolol, statin and statin. Spironolactone 12.5mg adding Monitor BMP (3) Congestive heart failure: Worsening dyspnea on exertion associated with weight gain. Chest x-ray showed cardiomegaly without overt pulmonary edema. BNP elevated. Echocardiogram showed normal left ventricular systolic function, but grade II diastolic dysfunction. Continue bumetanide. Spironolactone 12.5 mg adding Will check BMP in 1 week (4) Atrial fibrillation: Chronic atrial fibrillation rate controlled on metoprolol. Anticoagulated on warfarin that is held due to cardiac cath this morning Received vit K and INR 1.6 today resume coumadin today (5) Hypertension: BP stable Continue metoprolol, lisinopril, amlodipine. (6) Cough: Chest x-ray interpreted as possible bibasilar pneumonia, but clinical suspicion low. Continue doxycycline for possible tracheobronchitis. (7) COPD, mild: Stable despite possible bronchitis. Continue usual inhalers. (8) SRAVANTHI (obstructive sleep apnea): Continue CPAP. (9) Dyslipidemia: Continue rosuvastatin (10) Diverticulitis: Developed abdominal pain afternoon of 06/01. CT demonstrated uncomplicated sigmoid diverticulitis. Continue IV piperacillin / tazobactam. Will transition to oral Augmentin on discharge (11) Hypokalemia: K 3.4 K replaced Monitor BMP (12) DVT prophylaxis: Coumadin resume today INR 1.6 today Add SCDs when INR subtherapeutic. (13) Discharge planning issues: Anticipated discharge to home. Family Medicine follow-up with Dr. Kaminski. Cardiology follow-up with Dr. Dickey. Subjective Pt was seen and examined Lying in bed with no distress Denies any chest pain, palpitation, dizziness and fever Physical Exam Physical Exam: General- No acute distress Head- atraumatic Eyes- PERRL, EOMI, ENT- oropharynx clear Neck- supple, no JVD Lungs- clear to auscultation Heart- regular rhythm; no murmur Abdomen- normal bowel sounds, soft, nontender Extremities- no calf tenderness, +trace edema Neuro- alert, oriented x 3; PERRL, EOMI; no facial palsy; no dysarthria Skin- warm & dry Results & Data Vital Signs (Past 12 Hours) Vital Signs Temp Pulse Pulse Pulse Resp BP BP 06/04/19 15:59 36.3 C L 53 L 18 141/79 H 06/04/19 11:15 87 19 143/80 H 06/04/19 10:53 69 66 17 160/94 H 06/04/19 10:30 58 L 18 151/98 H 06/04/19 10:15 67 17 144/86 H 06/04/19 10:00 36.8 C 63 69 17 159/92 H 06/04/19 09:45 60 20 138/90 06/04/19 09:30 70 20 142/83 H 06/04/19 07:30 36.7 C 61 95 H 16 154/95 H 06/04/19 07:26 61 06/04/19 07:21 36.6 C 74 18 152/94 H Pulse Ox 06/04/19 15:59 96 06/04/19 11:15 92 06/04/19 10:53 94 06/04/19 10:30 93 06/04/19 10:15 94 06/04/19 10:00 94 06/04/19 09:45 92 06/04/19 09:30 06/04/19 07:30 95 06/04/19 07:26 06/04/19 07:21 95 (1) Congestive heart failure Heart failure chronicity: acute Heart failure type: unspecified Qualified Code(s): I50.9 - Heart failure, unspecified
[2019-06-04] MEDS ORDERED: WARFARIN SOD 7.5 MG TAB PO ONE (18:17)
[2019-06-05] MEDS: PIPERACILLIN/TAZOBACTAM 3.375 GM in DEXTROSE 5% 100 ML IV SCH ×2 (02:47→10:10)
[2019-06-05 06:58] LABS: INR 1.5 (0.9-1.1); Prothrombin Time 14.7 Seconds (9.0-12.0)
[2019-06-05 07:24] LABS: Potassium 3.5 mmol/L (3.5-5.1)
[2019-06-05 07:25] LABS: BUN Creatinine Ratio 7.8 (10-20); Calcium 9.5 mg/dl (8.5-10.1); Creatinine Clr Calc Pharmacy 91.2 ml/min; Est GFR (Non-African American) 87.1
[2019-06-05] MEDS: ALLOPURINOL 100 MG TAB PO SCH ×2 (08:04→20:06)
[2019-06-05] MEDS: AMLODIPINE BESYLATE 5 MG TAB PO SCH (08:04)
[2019-06-05] MEDS: DOXYCYCLINE HYCLATE 100 MG CAP PO SCH ×2 (08:04→20:08)
[2019-06-05] MEDS: METOPROLOL SUCC 50MG EXT REL TAB PO SCH (08:04)
[2019-06-05] MEDS: CALCIUM CARBONATE 500 MG CHEWABLE TAB PO SCH ×2 (08:04→19:26)
[2019-06-05] MEDS: PANTOprazole 40 MG TAB PO SCH (08:04)
[2019-06-05] MEDS: MAGNESIUM OXIDE 400 MG TAB PO SCH (08:05)
[2019-06-05] MEDS: SPIRONOLACTONE 25 MG TAB PO SCH (08:05)
[2019-06-05] MEDS: ROSUVASTATIN CALCIUM 20 MG TAB PO SCH (08:05)
[2019-06-05] MEDS: BUMETANIDE 1 MG TAB PO SCH ×2 (08:05→18:55)
[2019-06-05] MEDS: LISINOPRIL 40 MG TAB PO SCH (08:05)
[2019-06-05] MEDS: SODIUM CHLORIDE 0.9% 500 ML IV SCH (08:06)
[2019-06-05] MEDS: INSULIN ASPART 100 UNITS/ML 3 ML PEN SC SCH ×4 (08:07→21:10)
[2019-06-05] MEDS ORDERED: POTASSIUM CHLORIDE 20 MEQ TABCR PO STA (09:21)
--- NOTE | 2019-06-05 12:23 | Cardiology Progress Note ---
Date of Service June 05, 2019 Assessment & Plan (1) Atrial fibrillation: Currently normal sinus rhythm. His INR was reversed with vitamin K and Coumadin has been restarted Patient should follow-up with [facility] as an outpatient Continue metoprolol (2) Congestive heart failure: In light of the cardiac catheterization results believe his decompensation is due to diastolic dysfunction. At this point medical therapy is most prudent course of action and to that and I will start him on spironolactone 12.5 mg p.o. daily in addition to his Bumex, which I will increase to twice daily for 3 days and then return to daily My office will call to arrange CHF clinic follow-up within the next week He is already on high-dose evidence-based beta-alfredito and that will be continued. Okay to discharge home from a cardiac standpoint (3) Dyspnea on exertion: As above (4) CAD (coronary artery disease): Heavily calcified lesion of the posterior lateral branch of the RCA. The lesion was heavily calcified and unamenable to intervention. Given the heavy calcification this points to chronicity and I do not believe this lesion is a culprit for his acute decompensation. We will treat medically as above. (5) LBBB (left bundle branch block): Chronic. Subjective Patient seen and examined, states he is feeling relatively well but has not been ambulating much and is not sure if he will be dyspneic. Denies any chest pain, palpitations, lightheadedness, dizziness or syncope. His abdominal discomfort is relatively well controlled as he continues to receive IV antibiotics. Telemetry reviewed: Normal sinus rhythm without arrhythmia or significant ectopy Review of Systems Review of Systems: All systems reviewed & are unremarkable except as noted in HPI & below Physical Exam Physical Exam: General: Awake, alert and oriented x 3. No acute distress. HEENT: Normocephalic, atraumatic. Pupils equal, round and reactive to light and accommodation. Extraocular muscles are intact. Anicteric sclera. Moist mucous membranes. Neck: No JVD. No bruit. Cardiovascular: Regular. Positive S-4. Normal S-1 and S-2. No S-3. 3/6 mid to late systolic ejection murmur, greatest at the right sternal border, second intercostal space with radiation to the bilateral carotids. No rubs. Pulmonary: Clear to auscultation bilaterally. No rales, rhonchi, or wheezing. Abdomen: Bowel sounds x 4, soft. No rebound, guarding or tenderness. No organomegaly. Extremities: No clubbing, cyanosis or edema. +2 pedal pulses bilaterally. Skin: Warm and dry. Results & Data Vital Signs (Past 12 Hours) Vital Signs Temp Pulse Resp BP BP Pulse Ox 06/05/19 11:44 36.6 C 62 18 129/81 93 06/05/19 07:54 36.7 C 68 18 162/78 H 95 06/05/19 04:33 36.6 C 62 19 152/86 H 94 Laboratory Results Laboratory Results - last 24 hr 06/04/19 06/04/19 06/05/19 16:08 20:52 05:54 PT 14.7 H INR 1.5 H Sodium Potassium Chloride Carbon Dioxide Anion Gap BUN Creatinine Est Cr Clr Drug Dosing Est GFR ( Amer) Est GFR (Non-Af Amer) BUN/Creatinine Ratio Glucose POC Glucose 151 H 132 H Calcium 06/05/19 06/05/19 06/05/19 05:54 07:31 11:31 PT INR Sodium 139 Potassium 3.5 Chloride 105 Carbon Dioxide 29 Anion Gap 5.0 BUN 6 L Creatinine 0.82 Est Cr Clr Drug Dosing 91.2 Est GFR ( Amer) 101.0 Est GFR (Non-Af Amer) 87.1 BUN/Creatinine Ratio 7.8 L Glucose 125 H POC Glucose 123 H 182 H Calcium 9.5 Medications Administered Current Inpatient Medications Acetaminophen (Tylenol) 650 mg PO Q4H PRN PRN Reason: Pain or Fever Stop: 06/30/19 15:04 Albuterol (Ventolin Hfa) 2 puffs INH Q4H PRN PRN Reason: shortness of breath or wheezing Stop: 06/30/19 16:00 Allopurinol (Zyloprim) 100 mg PO BID FELIPE Stop: 06/30/19 20:59 Last Admin: 06/05/19 08:04 Dose: 100 mg Documented by: Amlodipine Besylate (Norvasc) 5 mg PO DAILY [facility] Stop: 07/01/19 08:59 Last Admin: 06/05/19 08:04 Dose: 5 mg Documented by: Bumetanide (Bumex) 1 mg PO BID17 [facility] Stop: 07/05/19 16:59 Calcium Carbonate (Tums) 500 mg PO DAILY@0700,1900 [facility]EL[facility] Stop: 06/30/19 18:59 Last Admin: 06/05/19 08:04 Dose: 500 mg Documented by: Dextrose (Dextrose 50%) 25 - 50 ml IV UD PRN; Protocol PRN Reason: Hypoglycemia Protocol Stop: 06/30/19 15:31 Doxycycline Hyclate (Vibramycin) 100 mg PO BID FELIPE Stop: 06/07/19 15:59 Last Admin: 06/05/19 08:04 Dose: 100 mg Documented by: Glucagon (Glucagen) 1 mg SQ UD PRN; Protocol PRN Reason: Hypoglycemia Protocol Stop: 06/30/19 15:31 Glucose (Dex4 Glucose) 4 - 8 tabs PO UD PRN; Protocol PRN Reason: Hypoglycemia Protocol Stop: 06/30/19 15:31 Glucose (Glucose 40%) 15 - 30 gm PO UD PRN; Protocol PRN Reason: Hypoglycemia Protocol Stop: 06/30/19 15:31 Piperacillin Sod/Tazobactam (Sod 3.375 gm/ Dextrose) 115 mls @ 28.75 mls/hr IV Q8H FELIPE; Protocol Stop: 06/12/19 01:59 Last Admin: 06/05/19 10:10 Dose: 30 mls/hr Documented by: Sodium Chloride (Nss) 500 mls @ 50 mls/hr IV .Q10H FELIPE Stop: 07/04/19 11:14 Last Admin: 06/05/19 08:06 Dose: 50 mls/hr Documented by: Insulin Aspart (Novolog Flexpen) 0 units SC ACHS FEL[facility] Stop: 06/30/19 16:29 Last Admin: 06/05/19 11:47 Dose: 7 units Documented by: Ioversol (Optiray 320 100ml) 93 ml IV ONCE PRN PRN Reason: Interaction Checking Stop: 06/05/19 17:05 Last Admin: 06/01/19 17:07 Dose: 93 ml Documented by: Lisinopril (Zestril) 40 mg PO DAILY [facility] Stop: 07/01/19 08:59 Last Admin: 06/05/19 08:05 Dose: 40 mg Documented by: Magnesium Oxide (Mag-Ox) 400 mg PO DAILY@0700 [facility] Stop: 07/01/19 06:59 Last Admin: 11/20/19 08:05 Dose: 400 mg Documented by: Metoprolol Succinate (Toprol Xl) 200 mg PO DAILY [facility] Stop: 07/01/19 08:59 Last Admin: 06/05/19 08:04 Dose: 200 mg Documented by: Miscellaneous (Carbohydrates For Hypoglycemia) 15 - 30 gm PO UD PRN PRN Reason: Hypoglycemia Protocol Stop: 06/30/19 15:31 Miscellaneous Information (Consult) 1 ea N/A UD PRN PRN Reason: Consult Stop: 07/01/19 20:04 Ondansetron HCl (Zofran) 4 mg IV Q6H PRN PRN Reason: Nausea Stop: 06/30/19 15:04 Pantoprazole Sodium (Protonix) 40 mg PO DAILY [facility]; Protocol Stop: 07/01/19 08:59 Last Admin: 06/05/19 08:04 Dose: 40 mg Documented by: Polyethylene Glycol (Miralax Powder Packet) 17 gm PO DAILY PRN PRN Reason: Constipation Stop: 06/30/19 15:04 Rosuvastatin Calcium (Crestor) 20 mg PO DAILY [facility] Stop: 07/01/19 08:59 Last Admin: 06/05/19 08:05 Dose: 20 mg Documented by: Spironolactone (Aldactone) 12.5 mg PO DAILY [facility] Stop: 07/04/19 12:44 Last Admin: 06/05/19 08:05 Dose: 12.5 mg Documented by: (1) Congestive heart failure Heart failure chronicity: acute Heart failure type: unspecified Qualified Code(s): I50.9 - Heart failure, unspecified
[2019-06-05] MEDS: AMOXICILLIN/CLAVULANATE 875 MG TAB PO SCH (18:55)
--- NOTE | 2019-06-05 19:18 | Hospitalist Progress Note ---
Date of Service June 05, 2019 Assessment & Plan (1) Dyspnea on exertion: Patient presented with dyspnea on exertion. Possible related to congestive heart failure vs myocardial ischemia vs lower respiratory tract infection. CXR showed patchy right greater than left bibasilar opacities suggest atelectasis or pneumonitis Pulmonary embolism very unlikely with warfarin therapy and normal d-dimer. On IV Zosyn and PO doxy for now IV Zosyn transition to oral Augmentin Clinically improves (2) CAD (coronary artery disease): Cardiac cath 2005 showed 80% stenosis 1st diagonal, luminal irregularities of LAD and 2nd diagonal. Medical management recommended. Nuclear stress test 2016 showed normal perfusion, LVEF 68%. Current symptoms of dyspnea on exertion and epigastric discomfort may be secondary to myocardial ischemia. EKG shows chronic atrial fibrillation, rate controlled, left bundle branch block, inferior and lateral ST and T wave abnormalities. Troponins negative x3. Echocardiogram did not show any wall motion abnormalities except for abnormal septal wall motion consistent with LBBB pattern. Cardiology on board S/P cardiac cath done today showed heavily calcified lesion of the posterior lateral branch of the RCA. Unsuccessful PCI of distal RCA due to inability to pass balloon across heavily calcified lesion. case discussed with cardiology and recommended medical management . Continue metoprolol, statin and statin. On Spironolactone 12.5mg Monitor BMP (3) Congestive heart failure: Worsening dyspnea on exertion associated with weight gain. Chest x-ray showed cardiomegaly without overt pulmonary edema. BNP elevated. Echocardiogram showed normal left ventricular systolic function, but grade II diastolic dysfunction. case discussed with cardiology Continue Spironolactone 12.5 mg daily, Bumex increased to BID x3 days, then back to daily Follow up with CHF clinic next week Check BMP in 1 week (4) Atrial fibrillation: Chronic atrial fibrillation rate controlled on metoprolol. Anticoagulated on warfarin that is held due to cardiac cath this morning Received vit K and INR 1.5 today Continue Coumadin Follow up with the coumadin clinic (5) Hypertension: BP stable Continue metoprolol, lisinopril, amlodipine. (6) Cough: Chest x-ray interpreted as possible bibasilar pneumonia, but clinical suspicion low. Continue doxycycline for possible tracheobronchitis. (7) COPD, mild: Stable despite possible bronchitis. Continue usual inhalers. (8) SRAVANTHI (obstructive sleep apnea): Continue CPAP. (9) Dyslipidemia: Continue rosuvastatin (10) Diverticulitis: Developed abdominal pain afternoon of 06/01. CT demonstrated uncomplicated sigmoid diverticulitis. IV piperacillin / tazobactam discontinued Transition to oral Augmentin today Diet advanced as tolerated Follow up with GI for outpatient colonoscopy in 6 to 8 weeks (11) Hypokalemia: K 3.5 K replaced Monitor BMP (12) DVT prophylaxis: Coumadin resume today INR 1.5 today Add SCDs when INR subtherapeutic. (13) Discharge planning issues: Anticipated discharge to home. Family Medicine follow-up with Dr. Kaminski. Cardiology follow-up with Dr. Dickey. Subjective Pt was seen and examined Lying in bed with no distress He said that he tolerates his diet He said that abdominal pain improves Denies any chest pain, palpitation and SOB Physical Exam Physical Exam: General- No acute distress Head- atraumatic Eyes- PERRL, EOMI, ENT- oropharynx clear Neck- supple, no JVD Lungs- clear to auscultation Heart- regular rhythm; no murmur Abdomen- normal bowel sounds, soft, nontender Extremities- no calf tenderness, +trace edema Neuro- alert, oriented x 3; PERRL, EOMI; no facial palsy; no dysarthria Skin- warm & dry Results & Data Vital Signs (Past 12 Hours) Vital Signs Temp Pulse Pulse Resp BP Pulse Ox 06/05/19 16:00 69 06/05/19 15:17 36.5 C 56 L 20 123/70 95 06/05/19 11:44 36.6 C 62 18 129/81 93 06/05/19 07:54 36.7 C 68 18 162/78 H 95 (1) Congestive heart failure Heart failure chronicity: acute Heart failure type: unspecified Qualified Code(s): I50.9 - Heart failure, unspecified
[2019-06-05] MEDS ORDERED: WARFARIN SOD 7.5 MG TAB PO ONE (20:00)
[2019-06-06 06:05] LABS: INR 1.8 (0.9-1.1)
[2019-06-06 06:20] LABS: BUN Creatinine Ratio 9.5 (10-20); Calcium 10.1 mg/dl (8.5-10.1); Est GFR (Non-African American) 85.4; Potassium 3.6 mmol/L (3.5-5.1)
[2019-06-06] MEDS: MAGNESIUM OXIDE 400 MG TAB PO SCH (06:24)
[2019-06-06] MEDS: CALCIUM CARBONATE 500 MG CHEWABLE TAB PO SCH (06:24)
[2019-06-06 07:18] VITALS: TEMP 97.7
[2019-06-06] MEDS: INSULIN ASPART 100 UNITS/ML 3 ML PEN SC SCH ×2 (07:56→12:05)
[2019-06-06] MEDS: ROSUVASTATIN CALCIUM 20 MG TAB PO SCH (07:57)
[2019-06-06] MEDS: SPIRONOLACTONE 25 MG TAB PO SCH (07:57)
[2019-06-06] MEDS: BUMETANIDE 1 MG TAB PO SCH (07:57)
[2019-06-06] MEDS: LISINOPRIL 40 MG TAB PO SCH (07:57)
[2019-06-06] MEDS: AMOXICILLIN/CLAVULANATE 875 MG TAB PO SCH (07:57)
[2019-06-06] MEDS: ALLOPURINOL 100 MG TAB PO SCH (07:57)
[2019-06-06] MEDS: DOXYCYCLINE HYCLATE 100 MG CAP PO SCH (07:57)
[2019-06-06] MEDS: AMLODIPINE BESYLATE 5 MG TAB PO SCH (07:58)
[2019-06-06] MEDS: METOPROLOL SUCC 50MG EXT REL TAB PO SCH (07:58)
[2019-06-06] MEDS: PANTOprazole 40 MG TAB PO SCH (07:58)
[2019-06-06 11:42] VITALS: O2SAT 94
--- NOTE | 2019-06-06 12:37 | Cardiology Progress Note ---
Date of Service June 06, 2019 Assessment & Plan (1) Atrial fibrillation: Currently normal sinus rhythm. His INR was reversed with vitamin K and Coumadin has been restarted Patient should follow-up with [facility] clinic as an outpatient Continue metoprolol (2) Congestive heart failure: In light of the cardiac catheterization results believe his decompensation is due to diastolic dysfunction. At this point medical therapy is most prudent course of action and to that and I will start him on spironolactone 12.5 mg p.o. daily in addition to his Bumex, which I will increase to twice daily for 3 days and then return to daily My office will call to arrange CHF clinic follow-up within the next week He is already on high-dose evidence-based beta-alfredito and that will be continued. Okay to discharge home from a cardiac standpoint (3) Dyspnea on exertion: As above (4) CAD (coronary artery disease): Heavily calcified lesion of the posterior lateral branch of the RCA. The lesion was heavily calcified and unamenable to intervention. Given the heavy calcification this points to chronicity and I do not believe this lesion is a culprit for his acute decompensation. We will treat medically as above. (5) LBBB (left bundle branch block): Chronic. Subjective Pt seen and examined, while ambulating in hallways. States breathing is improving. Denies cp, sob, palpitations, lightheadedness or dizziness. tele reviewed: sinus rhythm Review of Systems Review of Systems: All systems reviewed & are unremarkable except as noted in HPI & below Physical Exam Physical Exam: General: Awake, alert and oriented x 3. No acute distress. HEENT: Normocephalic, atraumatic. Pupils equal, round and reactive to light and accommodation. Extraocular muscles are intact. Anicteric sclera. Moist mucous membranes. Neck: No JVD. No bruit. Cardiovascular: Regular. Positive S-4. Normal S-1 and S-2. No S-3. 3/6 mid to late systolic ejection murmur, greatest at the right sternal border, second intercostal space with radiation to the bilateral carotids. No rubs. Pulmonary: Clear to auscultation bilaterally. No rales, rhonchi, or wheezing. Abdomen: Bowel sounds x 4, soft. No rebound, guarding or tenderness. No organomegaly. Extremities: No clubbing, cyanosis or edema. +2 pedal pulses bilaterally. Skin: Warm and dry. Results & Data Vital Signs (Past 12 Hours) Vital Signs Temp Pulse Pulse Resp BP BP Pulse Ox 06/06/19 11:41 36.5 C 64 18 137/86 94 06/06/19 07:15 36.5 C 67 18 151/98 H 93 06/06/19 03:55 36.6 C 67 16 135/83 93 06/06/19 02:00 62 (1) Congestive heart failure Heart failure chronicity: acute Heart failure type: unspecified Qualified Code(s): I50.9 - Heart failure, unspecified
--- NOTE | 2019-06-06 14:57 | Hospitalist Progress Note ---
Date of Service June 06, 2019 Assessment & Plan (1) Dyspnea on exertion: Patient presented with dyspnea on exertion. Possible related to congestive heart failure vs myocardial ischemia vs lower respiratory tract infection. CXR showed patchy right greater than left bibasilar opacities suggest atelectasis or pneumonitis Pulmonary embolism very unlikely with warfarin therapy and normal d-dimer. IV Zosyn was started on 06/01 and PO doxy for now IV Zosyn transition to oral Augmentin on 06/05 Complete 7 days course of doxy Clinically improves (2) CAD (coronary artery disease): Cardiac cath 2005 showed 80% stenosis 1st diagonal, luminal irregularities of LAD and 2nd diagonal. Medical management recommended. Nuclear stress test 2016 showed normal perfusion, LVEF 68%. Current symptoms of dyspnea on exertion and epigastric discomfort may be secondary to myocardial ischemia. EKG shows chronic atrial fibrillation, rate controlled, left bundle branch block, inferior and lateral ST and T wave abnormalities. Troponins negative x3. Echocardiogram did not show any wall motion abnormalities except for abnormal septal wall motion consistent with LBBB pattern. Cardiology on board S/P cardiac cath done today showed heavily calcified lesion of the posterior lateral branch of the RCA. Unsuccessful PCI of distal RCA due to inability to pass balloon across heavily calcified lesion. case discussed with cardiology and recommended medical management . Continue metoprolol, statin and statin. Continue Spironolactone 12.5mg daily Monitor BMP (3) Congestive heart failure: Worsening dyspnea on exertion associated with weight gain. Chest x-ray showed cardiomegaly without overt pulmonary edema. BNP elevated. Echocardiogram showed normal left ventricular systolic function, but grade II diastolic dysfunction. case discussed with cardiology Continue Spironolactone 12.5 mg daily, Bumex increased to BID x3 days--until Monday then back to daily Follow up with CHF clinic next Mon with Dr. Dickey Check BMP in 1 week (4) Atrial fibrillation: Chronic atrial fibrillation rate controlled on metoprolol. Anticoagulated on warfarin that is held due to cardiac cath this morning Received vit K and INR 1.8 today Continue Coumadin Follow up with the coumadin clinic (5) Hypertension: BP stable Continue metoprolol, lisinopril, amlodipine. (6) Cough: Chest x-ray interpreted as possible bibasilar pneumonia, but clinical suspicion low. Continue doxycycline for possible tracheobronchitis. (7) COPD, mild: Stable despite possible bronchitis. Continue usual inhalers. (8) SRAVANTHI (obstructive sleep apnea): Continue CPAP. (9) Dyslipidemia: Continue rosuvastatin (10) Diverticulitis: Developed abdominal pain afternoon of 06/01. CT demonstrated uncomplicated sigmoid diverticulitis. IV piperacillin / tazobactam discontinued IV Zosyn was started on 06/01 IV Zosyn transition to oral Augmentin on 06/05 Will complete a total 10 days course of abx Clinically improves Diet advanced as tolerated Follow up with GI for outpatient colonoscopy in 6 to 8 weeks (11) Hypokalemia: K 3.6 K replaced Monitor BMP (12) DVT prophylaxis: Coumadin resume today INR 1.8 today . (13) Discharge planning issues: Anticipated discharge to home. Family Medicine follow-up with Dr. Kaminski. Cardiology follow-up with Dr. Dickey. Subjective Pt was seen and examined Lying in bed with no distress Pt said that he feels much better He said that he has been walking in the hallway Denies any chest pain, palpitation, dizziness and SOB Physical Exam Physical Exam: General- No acute distress Head- atraumatic Eyes- PERRL, EOMI, ENT- oropharynx clear Neck- supple, no JVD Lungs- clear to auscultation Heart- regular rhythm; no murmur Abdomen- normal bowel sounds, soft, nontender Extremities- no calf tenderness, +trace edema Neuro- alert, oriented x 3; PERRL, EOMI; no facial palsy; no dysarthria Skin- warm & dry Results & Data Vital Signs (Past 12 Hours) Vital Signs Temp Pulse Resp BP BP Pulse Ox 06/06/19 11:41 36.5 C 64 18 137/86 94 06/06/19 07:15 36.5 C 67 18 151/98 H 93 06/06/19 03:55 36.6 C 67 16 135/83 93 (1) Congestive heart failure Heart failure chronicity: acute Heart failure type: unspecified Qualified Code(s): I50.9 - Heart failure, unspecified
[2019-06-06 15:44] VITALS: BP 151/98; PULSE 59
--- NOTE | 2019-06-07 01:07 | Discharge Summary ---
Date of Service June 06, 2019 Admission HPI Per Admitting Provider This is a 74-year-old with a PMH of paroxysmal atrial fibrillation on Coumadin, COPD, tracheobronchopathia osteochondroplastica, CAD, LBBB, DM II, SRAVANTHI on CPAP and other medical problems listed below who presents with progressive dyspnea on exertion x1 week. Patient went on a hunting trip 2 weeks ago in [place] and returned by 26 hour car ride. Once returned, he felt fatigued and unable to do his normal amount of daily activity. Later on that week, patient developed dyspnea on exertion and utilized his as needed home 2L O2. Today, patient was preparing to go hunting with his son when he felt poorly with worsening dyspnea on exertion and productive cough with clear sputum and was seen in clinic by Dr. Garcia. Denies any fever, chills, lightheadedness, near-syncope or visual changes. No chest pain, palpitations or wheezing. Denies any calf pain or swelling in distal extremities. Notes that he has gained 7 pounds since his hunting trip. 2D echo from September 2016 with moderate concentric LVH and preserved EF of 55-59%. Follows with [facility] pulmonary group and underwent recent PFTs in February 2019 showing mildly reduced FEV1/FVC ratio. Overall lung function has declined since PFTs in 2016. Admission Exam Per Admitting Provider General Appearance: WD/WN, vitals as above, NAD, sitting up in bed, pleasant, conversing easily Head: normocephalic, atraumatic Eyes: normal inspection, PERRL, conjunctivae normal, anicteric sclerae ENT: external ear and nose normal, oropharynx normal Neck: trachea midline, no thyromegaly normal visual inspection Respiratory: normal respiratory effort, bibasilar crackles, no wheeze or rhonchi. Normal insp/exp effort, no accessory muscle use Cardiovascular: Irregular rate and rhythm, no murmur appreciated, normal peripheral pulses, trace BLE edema. Vessels: no JVD Chest: normal inspection of chest Abdomen/GI: normal bowel sounds, soft, nontender, no hepatosplenomegaly Extremities/Musculoskelatal: no cyanosis or clubbing, extremities motor strength 5/5 Neurologic: PERRL, EOMI, accommodation nl, no face palsy, no dysarthria CN's II-XI intact bilaterally and moves all extremities Psychiatric: A+Ox3, euthymic affect Skin: no rashes, normal color, warm/dry Principal Diagnosis Dyspnea on exertion CAD (coronary artery disease) Congestive heart failure Atrial fibrillation Hypertension Cough COPD, mild SRAVANTHI (obstructive sleep apnea) Dyslipidemia Diverticulitis Hypokalemia Discharge Exam General- No acute distress Head- atraumatic Eyes- PERRL, EOMI, ENT- oropharynx clear Neck- supple, no JVD Lungs- clear to auscultation Heart- regular rhythm; no murmur Abdomen- normal bowel sounds, soft, nontender Extremities- no calf tenderness, +trace edema Neuro- alert, oriented x 3; PERRL, EOMI; no facial palsy; no dysarthria Skin- warm & dry Discharge Data Allergies Allergy/AdvReac Type Severity Reaction Status Date / Time Sulfa (Sulfonamide Allergy Intermediate HIVES Verified 05/20/19 11:45 Antibiotics) Consultations 05/31/19 13:16 ED Decision to Admit Stat 06/01/19 08:00 Consult Cardiology Routine 06/03/19 08:00 Consult Cardiac Catheterization Routine Procedures Performed Operation Date: 06/03/19 11:00 <No data on this case meets the specified criteria> Operation Date: 06/04/19 08:00 Actual Procedures s Cineradiography w/Routine Exam - Piotr Jackson, p Cath, Left with Cors and Vent - Piotr Jackson, s POBA SGL Vessel - Serafin Garcia MD Ordered Studies 06/01/19 14:30 CT abd pelvis oral and IV con Urgent 06/04/19 06:50 CL Cath Imgs for PACS use only Routine ABDOMEN AND PELVIS CT WITH IV AND ORAL CONTRAST CT DOSE: 845.18 mGy.cm HISTORY: Acute left lower quadrant abdominal pain LLQ abdominal pain TECHNIQUE: Multiaxial CT images of the abdomen and pelvis were performed following the IV administration of 94 cc of Optiray 320 and oral contrast. A dose lowering technique was utilized adhering to the principles of ALARA. COMPARISON STUDY: Chest CT 08/23/2016 FINDINGS: Small right pleural effusion with dependent right basilar consolidation suggestive of compressive atelectasis. Linear metallic density structure noted within the right pleural space. Trace left pleural effusion with minimal left basilar atelectasis. No gross pneumoperitoneum or pneumatosis. The imaged inferior cardiac chambers are moderately enlarged. Trace pericardial effusion. Cholecystectomy.. Mild intrahepatic and extrahepatic biliary ductal dilation is likely a postsurgical basis. Suggestion of hepatic steatosis. Otherwise unremarkable liver. Spleen is enlarged, 16.1 cm. Moderate to extensive generalized pancreatic atrophy. 7 mm cystic lesion of the pancreatic tail on image 103 series 3 is nonspecific however statistically favors a sidebranch IPMN. Unremarkable left adrenal gland. Coarse calcifications the right adrenal gland are noted. Mild nonspecific bilateral perinephric stranding. There are a few bilateral renal hypodensities suggestive of probable cysts. Nonobstructing 3 mm calculus of the interpolar right kidney. No ureteral calculi or obstructive uropathy. Moderate circumferential wall thickening of the urinary bladder with partial distention. Prostamegaly. Small right and moderate left fat filled inguinal hernias. Extensive calcified plaque of the abdominal aorta without aneurysm. Pathologically enlarged 2.5 x 3.4 cm periaortic lymph node on image 216 series 3. No additional pathologic adenopathy identified prominent periportal lymph nodes are present. No bowel obstruction. Extensive colonic diverticulosis. Moderate wall thickening of the proximal sigmoid colon is noted with pericolonic stranding and trace free fluid centered around inflamed diverticulum on image 283 series 3. No evidence of perforation or drainable fluid collection. Nonvisualization of the appendix. Degenerative changes of the spine, pelvis and hips. IMPRESSION: 1. Findings compatible with acute uncomplicated sigmoid diverticulitis. No evidence of perforation or drainable fluid collection. 2. No bowel obstruction or pneumoperitoneum. 3. Nonobstructing right nephrolithiasis. 4. Prostamegaly with suggestion of chronic bladder outlet obstruction. 5. Indeterminate pathologically enlarged periaortic lymph node measures 2.5 x 3.4 cm. Follow-up is needed to exclude progressive abnormality. 6. Additional findings as above. Electronically signed by: Shane Ackerman M.D. 06/01/2019 5:42 PM Dictated: 06/01/19 1735 Transcribed: 06/01/19 1735 XR chest 1V portable HISTORY: 74 years-old Male Chest Pain acute atypical chest pain COMPARISON: Chest CT 08/23/2016 TECHNIQUE: Portable AP view of the chest FINDINGS: Cardiac silhouette is mildly enlarged. Mild bilateral hilar prominence appears unchanged. Patchy right greater than left bibasilar opacities are noted without pneumothorax, large pleural effusion or overt pulmonary edema. Ill-defined 2.7 cm opacity of the right lung base. Degenerative changes of the shoulders and spine. Cholecystectomy. IMPRESSION: 1. Cardiomegaly without overt pulmonary edema. 2. Patchy right greater than left bibasilar opacities suggest atelectasis or pneumonitis. The above report was generated using voice recognition software. It may contain grammatical, syntax or spelling errors. Electronically signed by: Shane Ackerman M.D. 05/31/2019 12:35 PM Dictated: 05/31/19 1232 Transcribed: 05/31/19 1232 Hospital Course (1) Dyspnea on exertion: Patient presented with dyspnea on exertion. Possible related to congestive heart failure vs myocardial ischemia vs lower respiratory tract infection. CXR showed patchy right greater than left bibasilar opacities suggest atelectasis or pneumonitis Pulmonary embolism very unlikely with warfarin therapy and normal d-dimer. IV Zosyn was started on 06/01 and PO doxy for now IV Zosyn transition to oral Augmentin on 06/05 Complete 7 days course of doxy Clinically improves (2) CAD (coronary artery disease): Cardiac cath 2005 showed 80% stenosis 1st diagonal, luminal irregularities of LAD and 2nd diagonal. Medical management recommended. Nuclear stress test 2015 showed normal perfusion, LVEF 68%. Current symptoms of dyspnea on exertion and epigastric discomfort may be secondary to myocardial ischemia. EKG shows chronic atrial fibrillation, rate controlled, left bundle branch block, inferior and lateral ST and T wave abnormalities. Troponins negative x3. Echocardiogram did not show any wall motion abnormalities except for abnormal septal wall motion consistent with LBBB pattern. Cardiology on board S/P cardiac cath done today showed heavily calcified lesion of the posterior lateral branch of the RCA. Unsuccessful PCI of distal RCA due to inability to pass balloon across heavily calcified lesion. case discussed with cardiology and recommended medical management . Continue metoprolol, statin and statin. Continue Spironolactone 12.5mg daily Monitor BMP (3) Congestive heart failure: Worsening dyspnea on exertion associated with weight gain. Chest x-ray showed cardiomegaly without overt pulmonary edema. BNP elevated. Echocardiogram showed normal left ventricular systolic function, but grade II diastolic dysfunction. case discussed with cardiology Continue Spironolactone 12.5 mg daily, Bumex increased to BID x3 days--until Monday then back to daily Follow up with CHF clinic next Mon with Dr. Dickey Check BMP in 1 week (4) Atrial fibrillation: Chronic atrial fibrillation rate controlled on metoprolol. Anticoagulated on warfarin that is held due to cardiac cath this morning Received vit K and INR 1.8 today Continue Coumadin Follow up with the coumadin clinic (5) Hypertension: BP stable Continue metoprolol, lisinopril, amlodipine. (6) Cough: Chest x-ray interpreted as possible bibasilar pneumonia, but clinical suspicion low. Continue doxycycline for possible tracheobronchitis. (7) COPD, mild: Stable despite possible bronchitis. Continue usual inhalers. (8) SRAVANTHI (obstructive sleep apnea): Continue CPAP. (9) Dyslipidemia: Continue rosuvastatin (10) Diverticulitis: Developed abdominal pain afternoon of 06/01. CT demonstrated uncomplicated sigmoid diverticulitis. IV piperacillin / tazobactam discontinued IV Zosyn was started on 06/01 IV Zosyn transition to oral Augmentin on 06/05 Will complete a total 10 days course of abx Clinically improves Diet advanced as tolerated Follow up with GI for outpatient colonoscopy in 6 to 8 weeks (11) Hypokalemia: K 3.6 K replaced Monitor BMP (12) DVT prophylaxis: Coumadin resume today INR 1.8 today . (13) Discharge planning issues: Anticipated discharge to home. Family Medicine follow-up with Dr. Kaminski. Cardiology follow-up with Dr. Dickey. Total Time Total Time Spent Total Time Spent (In Minutes): 35 minutes Total Time Includes: Examination of the Patient, Discharge Planning, Medication Reconciliation, Communication With Other Providers and Other Discharge Plan Discharge Items Patient Disposition: Home - Self-Care Reason For Visit: DYSPNEA ON EXERTION Discharge Diagnosis: Dyspnea on exertion CAD (coronary artery disease) Congestive heart failure Atrial fibrillation Hypertension Cough COPD, mild SRAVANTHI (obstructive sleep apnea) Dyslipidemia Diverticulitis Hypokalemia Activity: Resume your previous activity Activity Comment: as tolerated Non-emergency contact: Primary Care Provider and [employer] Call non-emergency contact if: you have any medication questions Follow-up/Referrals: Roscoe Kaminski MD [Primary Care Provider] - Diet: Heart Healthy Addtl Attending Provider Instructions: Follow up with your primary care provider Dr. Kaminski on 06/10 @ 10:45 AM Follow up with cardiology dr. Dickey at the heart failure clinic on Monday (already scheduled) Follow up with gastroenterology on 07/05 for your colonoscopy Follow up with the coumadin clinic (INR 1.8 today) Complete the course off the antibiotic with Augmentin Check BMP within 1 week to monitor your kidney function and electrolytes Take Bumex twice a day tomorrow, then after tomorrow dose please resume it to daily on Monday. Continue CPAP at night Pending Studies at Discharge: No Stand-Alone Forms: My [facility], Smoking Cessation Medications and DC Order Prescriptions: New spironolactone 25 mg Tablet 12.5 mg PO DAILY 30 Days Qty: 15 RF: 0 amoxicillin-pot clavulanate 875-125 mg Tablet 1 tab PO BIDM 3 Days Qty: 6 RF: 0 Continued rosuvastatin 20 mg tablet 20 mg PO DAILY Qty: 30 RF: 0 lisinopril 40 mg tablet 40 mg PO DAILY Qty: 90 RF: 0 metformin [Glucophage] 1,000 mg tablet 1,000 mg PO BID Qty: 180 RF: 0 magnesium oxide 400 mg (241.3 mg magnesium) tablet 400 mg PO DAILY RF: 0 bumetanide 1 mg tablet 1 mg PO DAILY RF: 0 omeprazole 20 mg capsule,delayed release(DR/EC) 20 mg PO DAILY RF: 0 calcium carbonate 600 mg calcium (1,500 mg) tablet 600 mg PO BID RF: 0 allopurinol 100 mg tablet 100 mg PO BID RF: 0 amlodipine 5 mg tablet 5 mg PO DAILY Qty: 90 RF: 0 pioglitazone 45 mg tablet 45 mg PO DAILY RF: 0 metoprolol succinate 200 mg tablet extended release 24 hr 200 mg PO DAILY Qty: 90 RF: 0 warfarin 7.5 mg tablet 7.5 mg PO DAILY@1600 Qty: 30 RF: 0 albuterol sulfate 90 mcg/actuation HFA aerosol inhaler 2 puffs inhalation Q4H PRN (Reason: shortness of breath or wheezing) Qty: 18 RF: 5 (DME) CPAP Machine Misc See Dose Instructions .ROUTE .MEDSUPPLY Qty: 1 RF: 0 (DME) CPAP Supplies Misc See Dose Instructions .ROUTE .MEDSUPPLY Qty: 1 RF: 0 [id number] C-Mn Capsule 1 cap PO BID RF: 0 tobramycin 0.3 % Drops 4 drp ophthalmic (eye) UD RF: 0 naproxen 375 mg Tablet,Delayed Release (Dr/Ec) 187.5 mg PO DAILY PRN (Reason: Pain) RF: 0 Januvia 100 mg Tablet 100 mg PO DAILY RF: 0 omega [id number] oil [Fish Oil] 1,000 mg (120 mg-180 mg) Capsule 1 cap PO DAILY RF: 0 Discharge Orders: Discharge Order (Routine); Ordered 06/06/19 Ordered By: Alejandro Marin Admission Data Admit Date/Time: 05/31/19 14:10 Attending Provider: Alejandro Marin Admit Provider: Kae Gallegos Primary Care Provider: Roscoe Kaminski Other Providers: Kae Gallegos ; Jono Morejon ; Piotr Jackson ; Roscoe Del Cid Other Interventions: Discharge Summary Assessment (RN) Last Done: 06/06/19 15:42 DC Date/Time DO NOT enter until pt leaves facility: 06/06/19 16:01
== END 2019-06-06 16:01 | disposition home or self-care (01) | DRG 287 ==
LOC: ED 11:10 → SUATTDRO 14:10 → 2N 14:10 → 1E 06-04 08:10 → 2S 06-04 11:38

== ENCOUNTER 2020-01-13 13:40 | Inpatient (IN) ==
[2020-01-13] MEDS ORDERED: SODIUM CHLORIDE 0.9% 1000ML 500 ML IV ONE (15:32)
--- NOTE | 2020-01-13 15:36 | Emergency Department Note ---
Impression & Plan Acute hypotension, Dizziness, Acute kidney injury, Acute hyperkalemia ED Provider Note NAME: VALENTINO JURADO AGE: 74 SEX: M : 1945 ARRIVES VIA: Walk-In INFORMANT: Patient, ED PROVIDER(S): Joseph Lancaster DO CHIEF COMPLAINT: Low blood pressure HPI: The patient is a 74-year-old male who presented to the emergency department for an evaluation of low blood pressure. The patient has been noticing low blood pressure over the last month. He states the symptoms are waxing and waning. He states that he has had some changes in his medications but does not remember the name of which medication was changed. He does take blood pressure medication as well as blood thinners. He states that he called his poured concrete wall technician today to get an appointment but was referred to the emergency department. He states he has not been seen by his primary care physician for these complaints. The patient denies having any chest pain or difficulty breathing. He denies having any fever or difficulty urinating. He has had no cough or exposure to COVID-19. He does note a small amount of swelling to his lower extremities. He denies having any abdominal pain or back pain. The patient states he also notices some problems with his vision. He does complain of vertigo type symptoms especially when looking upward. He denies having any headache at this time. ROS: See above HPI for pertinent positives & negatives. A total of 10 systems reviewed and were otherwise negative. PAST MEDICAL HISTORY: See Below PAST SURGICAL HISTORY: See Below FAMILY HISTORY: See Below SOCIAL HISTORY: See Below HOME MEDICATIONS: See Below ALLERGIES: See Below VITALS: See Below PHYSICAL EXAMINATION: GENERAL: Patient is awake alert in no acute distress patient is resting comfortably and showing no signs of anxiety EYES: The conjunctivae are clear. The pupils are round and reactive. EARS, NOSE, MOUTH AND THROAT: The nose is without any evidence of any deformity. Mucous membranes are moist. Tongue is midline. NECK: The neck is nontender and supple. RESPIRATORY: Normal respiratory effort is noted there is no evidence of wheezing rhonchi or rales CARDIOVASCULAR: Regular rate and rhythm noted there no murmurs rubs or gallops normal S1 normal S2. GASTROINTESTINAL: The abdomen is soft. Abdomen is nontender. MUSCULOSKELETAL/EXTREMITIES: There is no evidence of gross deformity full range of motion is noted in the hips and shoulders. SKIN: There is no obvious evidence of any rash. Trace pedal edema was noted bilaterally. Clubbing was noted in both upper extremities. NEUROLOGIC: Patient is awake alert and oriented x3 strength is symmetric patellar reflexes are 2+ bilaterally MEDICAL DECISION MAKING: The patient is a 74-year-old male who presents emergency department for an evaluation of dizziness upon standing. He also had some vertigo symptoms. The patient was noted to have low blood pressure and called his primary poured concrete wall technician. He was sent to the emergency department for further evaluation because of low blood pressure. The patient was treated with IV fluids in the emergency department. I discussed the patient's laboratory and radiographic studies with him. He was found to have an elevated creatinine compared to his baseline. He does take antihypertensive medication. I discussed the patient's condition with the on-call [facility] hospitalist group. They have agreed to evaluate the patient in the emergency department for further management and di sposition. The patient's blood pressure did respond well to IV hydration. Triage Nursing notes reviewed. Prior medical records reviewed Vital Signs: reviewed and remarkable for no initial hypotension. Differential diagnosis: Infection, dehydration, metabolic abnormality, hypo/hyperglycemia, electrolyte disturbance, anemia, hypoxia, cardiac sources, intracerebral event, toxicologic, neurologic, as well as other pathologies. ER treatment provided: See below Diagnostics interpreted by me: ECG: EKG was obtained in the emergency department. My interpretation is atrial fibrillation at 76 bpm. There were no PVCs. There was a left bundle branch block pattern noted. There was low lateral ST depressions noted. This was compared to a tracing from June 01, 2019. No significant changes were noted. Cardiac Monitoring: An order was placed for continuous cardiac monitoring. The monitor shows a rate of 88 with atrial fibrillation rhythm. Laboratory studies: As stated above and show below. Imaging studies: See below Consultation(s): 1725: I discussed this case with Dr. Del Cid. He is agreed to evaluate the patient in the emergency department for further management and disposition Past Med/Surg History Medical History Atrial fibrillation on warfarin Chronic cough Diabetes mellitus, type II (Chronic) Diverticular disease GERD (gastroesophageal reflux disease) Gout Hearing deficit History of colon polyps History of SCC (squamous cell carcinoma) of skin Hypertension Left tibialis posterior tendonitis (Resolved) On anticoagulant therapy warfarin daily On home oxygen therapy 2L N/C prn Osteoarthritis Restrictive airway disease Sleep apnea cpap Tracheobronchopathia-osteochondroplastica (Chronic) Surgical History History of appendectomy (Inactive) History of bilateral cataract extraction History of bronchoscopy History of cardiac cath (~05/2019) x2--2003 ([facility]) and 06/04/19 ([facility]no stents--follows with Dr. Dickey History of carpal tunnel release of both wrists (Inactive) History of cholecystectomy (Inactive) History of colonoscopy with polypectomy History of esophagogastroduodenoscopy (EGD) History of total left knee replacement (TKR) History of total right knee replacement (TKR) (~2011) "R total knee arthroplasty in 2011" Hx of arthroscopic knee surgery (Inactive ~2001) "bilat by Dr. Thomas in 2001" Family History Sister Family hx of colon cancer Brother Family history of esophageal cancer Other Heart disease Lung disease No family history of adverse response to anesthesia Social History Preferred Language: Bermudian Communication Ability: Effective Wage Analyst Required: No Beliefs That Will Affect Care: None Current Living Situation: Spouse Feels Safe at Home: Yes Smoking Status: Former smoker Second Hand Exposure: No ; Hx Alcohol Use: No Hx Substance Use: No Allergies Allergies Allergy/AdvReac Type Severity Reaction Status Date / Time Sulfa (Sulfonamide Allergy Intermediate HIVES Verified 01/13/20 16:19 Antibiotics) Home Meds Home Medications Medication Instructions Recorded Confirmed allopurinol 100 mg tablet 100 mg PO BID tab 03/08/19 01/13/20 bumetanide 1 mg tablet 1 mg PO QAM tab 03/08/19 01/13/20 calcium carbonate 600 mg calcium 600 mg PO BID tab 03/08/19 01/13/20 (1,500 mg) tablet lisinopril 40 mg tablet 20 mg PO HS #90 tab 03/08/19 01/13/20 magnesium oxide 400 mg (241.3 mg 400 mg PO HS tab 03/08/19 01/13/20 magnesium) tablet metformin 1,000 mg tablet 1,000 mg PO BID #180 tab 03/08/19 01/13/20 metoprolol succinate 200 mg 200 mg PO QAM #90 tab 03/08/19 01/13/20 tablet,extended release 24 hr omeprazole 20 mg capsule,delayed 20 mg PO BID cap 03/08/19 01/13/20 release rosuvastatin 20 mg tablet 20 mg PO QPM #30 tab 03/08/19 01/13/20 Januvia 100 mg PO QAM 05/31/19 01/13/20 jyunhntdsnr-vsrjxbywf-gmk C-Mn 1 cap PO BID 05/31/19 01/13/20 omega 0-vdf-iad-fish oil [Fish Oil] 1 cap PO QAM 05/31/19 01/13/20 tobramycin 4 drp OPHTHALMIC (EYE) UD PRN 05/31/19 01/13/20 Jardiance 10 mg PO QAM 06/26/19 01/13/20 spironolactone 12.5 mg PO QAM 06/26/19 01/13/20 naproxen 187.5 mg PO DIRECTED PRN 01/13/20 01/13/20 sildenafil (pulm.hypertension) 40 - 60 mg PO DIRECTED PRN 01/13/20 01/13/20 warfarin See Rx Instructions .ROUTE .COMPLEX 01/13/20 01/13/20 Previous Rx's Medication Instructions Recorded CPAP Machine #1 ea 03/11/19 albuterol sulfate 90 mcg/actuation 2 puffs INHALATION Q4H PRN #18 gm 03/11/19 aerosol inhaler miscellaneous medical supply #1 ea 03/11/19 miscellaneous medical supply #1 ea 10/23/19 Results & Data (ED) Vital Signs Vital Signs - 24 hr 01/13/20 13:50 01/13/20 15:29 01/13/20 16:05 Temperature 36 C L Temperature Source Oral Pulse Rate 75 70 Pulse Rate from SpO2 Sensor 70 Respiratory Rate 18 13 Blood Pressure 98/62 L 110/60 Blood Pressure Mean 74 75 Pulse Oximetry 94 95 Oxygen Delivery Method Room Air Room Air Room Air Sepsis Recent Fever Within 48 Hours No Sepsis New/Unexplained Change in Mental Status No Sepsis Action Taken by Nursing No Action Required 01/13/20 17:10 Temperature Temperature Source Pulse Rate 74 Pulse Rate from SpO2 Sensor 76 Respiratory Rate 16 Blood Pressure 115/72 Blood Pressure Mean 81 Pulse Oximetry 94 Oxygen Delivery Method Room Air Sepsis Recent Fever Within 48 Hours Sepsis New/Unexplained Change in Mental Status Sepsis Action Taken by Intermediate Medications Current Medication List: was personally reviewed by me Laboratory Data Attestation: I reviewed the patient's lab results. Result diagrams: 01/13/20 15:46 01/13/20 15:46 Lab Results 01/13/20 01/13/20 01/13/20 Range/Units 13:57 15:46 15:46 WBC 7.88 (4.8-10.8) K/uL RBC 5.22 (4.7-6.1) M/uL Hgb 16.1 (14.0-18.0) g/dL Hct 47.2 (42-52) % MCV 90.4 (80-100) fL MCH 30.8 (25-34) pg MCHC 34.1 (32-36) g/dL RDW Std Deviation 51.6 H (36.4-46.3) fL RDW Coeff of Katie 15.7 H (11.5-14.5) % Plt Count 203 (130-400) K/uL MPV 10.3 (7.4-10.4) fL Immature Gran % (Auto) 0.5 % Neut % (Auto) 65.1 % Lymph % (Auto) 22.7 % Grainger % (Auto) 10.9 % Eos % (Auto) 0.8 % Baso % (Auto) 0.0 % Neut # (Auto) 5.13 (1.4-6.5) K/uL Lymph # (Auto) 1.79 (1.2-3.4) K/uL Grainger # (Auto) 0.86 H (0.11-0.59) K/uL Eos # (Auto) 0.06 (0-0.5) K/uL Baso # (Auto) 0.00 (0-0.2) K/uL Immature Gran # (Auto) 0.04 H (0.00-0.02) K/uL PT 29.7 H (9.0-12.0) Seconds INR 3.0 H (0.9-1.1) APTT 40.4 H (21.0-31.0) Seconds PTT Ratio 1.4 Sodium (136-145) mmol/L Potassium (3.5-5.1) mmol/L Chloride (98-107) mmol/L Carbon Dioxide (21-32) mmol/L Anion Gap (3-11) BUN (7-18) mg/dl Creatinine (0.6-1.4) mg/dl Est Cr Clr Drug Dosing ml/min Est GFR ( Amer) Est GFR (Non-Af Amer) BUN/Creatinine Ratio (10-20) Glucose (70-99) mg/dl POC Glucose 178 H (70-99) mg/dl Lactate (0.4-2.0) mmol/L Calcium (8.5-10.1) mg/dl Magnesium (1.8-2.4) mg/dl Total Bilirubin (0.2-1) mg/dl AST (15-37) U/L ALT (12-78) U/L Alkaline Phosphatase (45-117) U/L Troponin I (0-0.045) ng/ml Total Protein (6.4-8.2) gm/dl Albumin (3.4-5.0) gm/dl Globulin (2.5-4.0) gm/dl Albumin/Globulin Ratio (0.9-2) Procalcitonin (0-0.5) ng/ml Random Cortisol mcg/dl Specimen Hemolysis Urine Color Urine Appearance (Clear) Urine pH (4.5-7.5) Ur Specific [place] (1.000-1.030) Urine Protein (Negative) Urine Glucose (UA) (Negative) Urine Ketones (Negative) Urine Blood (Negative) Urine Nitrite (Negative) Urine Bilirubin (Negative) Urine Urobilinogen (Negative) Ur Leukocyte Esterase (Negative) 01/13/20 01/13/20 01/13/20 Range/Units 15:46 15:46 15:46 WBC (4.8-10.8) K/uL RBC (4.7-6.1) M/uL Hgb (14.0-18.0) g/dL Hct (42-52) % MCV (80-100) fL MCH (25-34) pg MCHC (32-36) g/dL RDW Std Deviation (36.4-46.3) fL RDW Coeff of Katie (11.5-14.5) % Plt Count (130-400) K/uL MPV (7.4-10.4) fL Immature Gran % (Auto) % Neut % (Auto) % Lymph % (Auto) % Grainger % (Auto) % Eos % (Auto) % Baso % (Auto) % Neut # (Auto) (1.4-6.5) K/uL Lymph # (Auto) (1.2-3.4) K/uL Grainger # (Auto) (0.11-0.59) K/uL Eos # (Auto) (0-0.5) K/uL Baso # (Auto) (0-0.2) K/uL Immature Gran # (Auto) (0.00-0.02) K/uL PT (9.0-12.0) Seconds INR (0.9-1.1) APTT (21.0-31.0) Seconds PTT Ratio Sodium 136 (136-145) mmol/L Potassium 5.3 H (3.5-5.1) mmol/L Chloride 105 (98-107) mmol/L Carbon Dioxide 21 (21-32) mmol/L Anion Gap 9.0 (3-11) BUN 39 H (7-18) mg/dl Creatinine 1.72 H (0.6-1.4) mg/dl Est Cr Clr Drug Dosing 44.0 ml/min Est GFR ( Amer) 44.4 Est GFR (Non-Af Amer) 38.3 BUN/Creatinine Ratio 22.6 H (10-20) Glucose 171 H (70-99) mg/dl POC Glucose (70-99) mg/dl Lactate 2.1 H* (0.4-2.0) mmol/L Calcium 10.2 H (8.5-10.1) mg/dl Magnesium 2.2 (1.8-2.4) mg/dl Total Bilirubin 0.7 (0.2-1) mg/dl AST 21 (15-37) U/L ALT 35 (12-78) U/L Alkaline Phosphatase 63 (45-117) U/L Troponin I < 0.015 (0-0.045) ng/ml Total Protein 7.3 (6.4-8.2) gm/dl Albumin 3.5 (3.4-5.0) gm/dl Globulin 3.8 (2.5-4.0) gm/dl Albumin/Globulin Ratio 0.9 (0.9-2) Procalcitonin (0-0.5) ng/ml Random Cortisol 29.22 mcg/dl Specimen Hemolysis Urine Color Urine Appearance (Clear) Urine pH (4.5-7.5) Ur Specific [place] (1.000-1.030) Urine Protein (Negative) Urine Glucose (UA) (Negative) Urine Ketones (Negative) Urine Blood (Negative) Urine Nitrite (Negative) Urine Bilirubin (Negative) Urine Urobilinogen (Negative) Ur Leukocyte Esterase (Negative) 01/13/20 01/13/20 01/13/20 Range/Units 15:46 16:00 18:05 WBC (4.8-10.8) K/uL RBC (4.7-6.1) M/uL Hgb (14.0-18.0) g/dL Hct (42-52) % MCV (80-100) fL MCH (25-34) pg MCHC (32-36) g/dL RDW Std Deviation (36.4-46.3) fL RDW Coeff of Katie (11.5-14.5) % Plt Count (130-400) K/uL MPV (7.4-10.4) fL Immature Gran % (Auto) % Neut % (Auto) % Lymph % (Auto) % Grainger % (Auto) % Eos % (Auto) % Baso % (Auto) % Neut # (Auto) (1.4-6.5) K/uL Lymph # (Auto) (1.2-3.4) K/uL Grainger # (Auto) (0.11-0.59) K/uL Eos # (Auto) (0-0.5) K/uL Baso # (Auto) (0-0.2) K/uL Immature Gran # (Auto) (0.00-0.02) K/uL PT (9.0-12.0) Seconds INR (0.9-1.1) APTT (21.0-31.0) Seconds PTT Ratio Sodium (136-145) mmol/L Potassium (3.5-5.1) mmol/L Chloride (98-107) mmol/L Carbon Dioxide (21-32) mmol/L Anion Gap (3-11) BUN (7-18) mg/dl Creatinine (0.6-1.4) mg/dl Est Cr Clr Drug Dosing ml/min Est GFR ( Amer) Est GFR (Non-Af Amer) BUN/Creatinine Ratio (10-20) Glucose (70-99) mg/dl POC Glucose (70-99) mg/dl Lactate 1.2 (0.4-2.0) mmol/L Calcium (8.5-10.1) mg/dl Magnesium (1.8-2.4) mg/dl Total Bilirubin (0.2-1) mg/dl AST (15-37) U/L ALT (12-78) U/L Alkaline Phosphatase (45-117) U/L Troponin I (0-0.045) ng/ml Total Protein (6.4-8.2) gm/dl Albumin (3.4-5.0) gm/dl Globulin (2.5-4.0) gm/dl Albumin/Globulin Ratio (0.9-2) Procalcitonin 0.08 (0-0.5) ng/ml Random Cortisol mcg/dl Specimen Hemolysis Urine Color Yellow Urine Appearance Clear (Clear) Urine pH 5.0 (4.5-7.5) Ur Specific [place] 1.016 (1.000-1.030) Urine Protein Negative (Negative) Urine Glucose (UA) 2+ H (Negative) Urine Ketones Negative (Negative) Urine Blood Negative (Negative) Urine Nitrite Negative (Negative) Urine Bilirubin Negative (Negative) Urine Urobilinogen Negative (Negative) Ur Leukocyte Esterase Negative (Negative) Administered Medications Discontinued Medications Sodium Chloride (Nss 1000ml) 500 mls @ 999 mls/hr IV .Q31M ONE Stop: 01/13/20 16:02 Last Infusion: 01/13/20 17:10 Dose: 0 mls/hr Documented by: [id number] Admin: 01/13/20 16:12 Dose: 999 mls/hr Documented by: [id number] Sodium Chloride (Nss 1000ml) 1,000 mls @ 999 mls/hr IV .Q1H1M ONE Stop: 01/13/20 17:37 Last Admin: 01/13/20 17:10 Dose: 999 mls/hr Documented by: [id number] Imaging Data Radiologist's Impression: CT head/brain wo con CT DOSE: 614.27 mGy.cm HISTORY: Mental status change. Hypotension. dizzy TECHNIQUE: Multiaxial CT images of the head were performed without the use of intravenous contrast. A dose lowering technique was utilized adhering to the principles of ALARA. Comparison: None. Findings: The paranasal sinuses and mastoid air cells are clear. The calvarium and skull base are intact. The ventricles and sulci are within normal limits. There is no mass, hematoma, midline shift, or acute infarct. Impression: No acute intracranial abnormality. Age-related atrophy and chronic small vessel change ACT 112: Negative or not required by law. The above report was generated using voice recognition software. It may contain grammatical, syntax or spelling errors. Electronically signed by: Isaiah Ward M.D. 01/13/2020 4:30 PM Dictated: 01/13/20 1629 Transcribed: 01/13/20 162 XR chest 1V portable CLINICAL HISTORY: SEPSIS dyspnea COMPARISON STUDY: 05/31/2019 FINDINGS: Mild cardiomegaly. Diaphragms are smooth. Lungs are clear. IMPRESSION: No acute process. Mild stable cardiomegaly. ACT 112: Negative or not required by law. The above report was generated using voice recognition software. It may contain grammatical, syntax or spelling errors. Electronically signed by: Isaiah Ward M.D. 01/13/2020 4:54 PM Dictated: 01/13/20 1653 Transcribed: 01/13/20 165 Blood Pressure Blood Pressure Findings: Low blood pressure Discharge Plan Visit Data Chief Complaint: Referred by Doctor Stated Complaint: BP LOW,LIGHTHEADED - DR REF ED Provider: Joseph Lancaster Discharge Problem: Acute hypotension, Dizziness, Acute kidney injury, Acute hyperkalemia Patient Disposition: Being Evaluated by Hospitalist Condition: Good Forms Stand Alone Forms: My [facility] [employer] Prescriptions Prescriptions: No Action rosuvastatin 20 mg tablet 20 mg PO QPM Qty: 30 RF: 0 lisinopril 40 mg tablet 20 mg PO HS Qty: 90 RF: 0 metformin [Glucophage] 1,000 mg tablet 1,000 mg PO BID Qty: 180 RF: 0 magnesium oxide 400 mg (241.3 mg magnesium) tablet 400 mg PO HS RF: 0 bumetanide 1 mg tablet 1 mg PO QAM RF: 0 omeprazole 20 mg capsule,delayed release(DR/EC) 20 mg PO BID RF: 0 calcium carbonate 600 mg calcium (1,500 mg) tablet 600 mg PO BID RF: 0 allopurinol 100 mg tablet 100 mg PO BID RF: 0 metoprolol succinate 200 mg tablet extended release 24 hr 200 mg PO QAM Qty: 90 RF: 0 albuterol sulfate 90 mcg/actuation HFA aerosol inhaler 2 puffs inhalation Q4H PRN (Reason: shortness of breath or wheezing) Qty: 18 RF: 5 (DME) CPAP Machine Misc See Dose Instructions .ROUTE .MEDSUPPLY Qty: 1 RF: 0 (DME) CPAP Supplies Misc See Dose Instructions .ROUTE .MEDSUPPLY Qty: 1 RF: 0 (DME) CPAP Supplies Misc See Rx Instructions .ROUTE .MEDSUPPLY Qty: 1 RF: 0 mdewymrcuas-kwnpgeyxw-cuf C-Mn Capsule 1 cap PO BID RF: 0 tobramycin 0.3 % Drops 4 drp ophthalmic (eye) UD PRN (Reason: as directed) RF: 0 Januvia 100 mg Tablet 100 mg PO QAM RF: 0 omega 8-zkw-nho-fish oil [Fish Oil] 1,000 mg (120 mg-180 mg) Capsule 1 cap PO QAM RF: 0 Jardiance 10 mg Tablet 10 mg PO QAM RF: 0 spironolactone 25 mg tablet 12.5 mg PO QAM RF: 0 warfarin 5 mg Tablet See Rx Instructions .ROUTE .COMPLEX RF: 0 naproxen 375 mg Tablet 187.5 mg PO DIRECTED PRN (Reason: Pain) RF: 0 sildenafil (pulm.hypertension) 20 mg Tablet 40 - 60 mg PO DIRECTED PRN (Reason: NEEDED) RF: 0 Referrals Referrals: Roscoe Kaminski MD [Primary Care Provider] -
[2020-01-13 15:55] LABS: Eosinophils # (auto) 0.06 K/uL (0-0.5); Eosinophils % (auto) 0.8 %; Hematocrit (blood only) 47.2 % (42-52); Hemoglobin 16.1 g/dL (14.0-18.0); Immature Granulocytes # (auto) 0.04 K/uL (0.00-0.02); Immature Granulocytes % (auto) 0.5 %; Lymphocytes # (auto) 1.79 K/uL (1.2-3.4); Lymphocytes % (auto) 22.7 %; Mean Corpuscular Hemoglobin 30.8 pg (25-34); Mean Corpuscular Hgb Conc 34.1 g/dL (32-36); Mean Corpuscular Volume 90.4 fL (80-100); Mean Platelet Volume 10.3 fL (7.4-10.4); Monocytes # (auto) 0.86 K/uL (0.11-0.59); Monocytes % (auto) 10.9 %; Neutrophils # (auto) 5.13 K/uL (1.4-6.5); Neutrophils % (auto) 65.1 %; Platelet Count 203 K/uL (130-400); RDW Coefficient of Variation 15.7 % (11.5-14.5); RDW Standard Deviation 51.6 fL (36.4-46.3); Red Blood Count 5.22 M/uL (4.7-6.1); White Blood Count 7.88 K/uL (4.8-10.8)
[2020-01-13 16:07] LABS: Partial Thromboplastin Ratio 1.4; Partial Thromboplastin Time 40.4 Seconds (21.0-31.0); Prothrombin Time 29.7 Seconds (9.0-12.0)
[2020-01-13 16:15] LABS: Alanine Aminotransferase 35 U/L (12-78); Albumin Level 3.5 gm/dl (3.4-5.0); Aspartate Aminotransferase 21 U/L (15-37); BUN Creatinine Ratio 22.6 (10-20); Blood Urea Nitrogen 39 mg/dl (7-18); Calcium 10.2 mg/dl (8.5-10.1); Carbon Dioxide 21 mmol/L (21-32); Chloride 105 mmol/L (98-107); Est GFR (African American) 44.4; Est GFR (Non-African American) 38.3; Glucose 171 mg/dl (70-99); Magnesium 2.2 mg/dl (1.8-2.4); Potassium 5.3 mmol/L (3.5-5.1); Sodium 136 mmol/L (136-145)
[2020-01-13 16:16] LABS: Appearance Urine Clear (Clear); Bilirubin Urine Negative (Negative); Blood Urine Negative (Negative); Color Urine Yellow; Glucose Urine UA 2+ (Negative); Ketones Urine Negative (Negative); Leukocyte Esterase Urine Negative (Negative); Nitrite Urine Negative (Negative); Protein Urine Negative (Negative); Specific Gravity Urine 1.016 (1.000-1.030); Urobilinogen Urine Negative (Negative)
[2020-01-13 16:22] LABS: Albumin Globulin Ratio 0.9 (0.9-2); Alkaline Phosphatase 63 U/L (45-117); Bilirubin,Total 0.7 mg/dl (0.2-1); Globulin 3.8 gm/dl (2.5-4.0); Total Protein 7.3 gm/dl (6.4-8.2); Troponin I < 0.015 ng/ml (0-0.045)
--- NOTE | 2020-01-13 16:31 | CT Scan Report ---
CT head/brain wo con CT DOSE: 614.27 mGy.cm HISTORY: Mental status change. Hypotension. dizzy TECHNIQUE: Multiaxial CT images of the head were performed without the use of intravenous contrast. A dose lowering technique was utilized adhering to the principles of ALARA. Comparison: None. Findings: The paranasal sinuses and mastoid air cells are clear. The calvarium and skull base are int act. The ventricles and sulci are within normal limits. There is no mass, hematoma, midline shift, or acute infarct. Impression: No acute intracranial abnormality. Age-related atrophy and chronic small vessel change ACT 112: Negative or not required by law. The above report was generated using voice recognition software. It may contain grammatical, syntax or spelling errors. Electronically signed by: Isaiah Ward M.D. 01/13/2020 4:30 PM
[2020-01-13] MEDS ORDERED: SODIUM CHLORIDE 0.9% 1000ML 1,000 ML IV ONE (16:37)
--- NOTE | 2020-01-13 16:55 | XRay Report ---
XR chest 1V portable CLINICAL HISTORY: SEPSIS dyspnea COMPARISON STUDY: 05/31/2019 FINDINGS: Mild cardiomegaly. Diaphragms are smooth. Lungs are clear. IMPRESSION: No acute process. Mild stable cardiomegaly. ACT 112: Negative or not required by law. The above report was generated using voice recognition software. It may contain grammatical, syntax or spelling errors. Electronically signed by: Isaiah Ward M.D. 01/13/2020 4:54 PM
--- NOTE | 2020-01-13 18:35 | History & Physical Report ---
Date of Service January 13, 2020 Assessment & Plan (1) Acute kidney injury: Serum creatinine 1.72, compared to 0.86 06/06/19. Etiology to be determined. Consider volume depletion, renovascular disease, NSAID. Hold lisinopril and diuretics. Avoid NSAID's. Received IV fluids in ED. Check renal US and renal artery duplex. Check CPK to r/o rhabdomyolysis. Follow labs. Consult Nephrology if no improvement. (2) Acute hyperkalemia: Serum K 5.3. Hold lisinopril and spironolactone. Low K diet. Follow. (3) Acute hypotension: Pt reports systolic BP's as low as 78 at home. BP in ED as low as 98/62. Does not appear to be septic. Hold lisinopril and diuretics. (4) Coronary artery disease: No anginal symptoms. Need to clarify if pt on anti-platelet therapy. Continue metoprolol and statin. (5) Chronic diastolic heart failure: Compensated. Holding diuretics because of MARY ANNE. Follow exam, weights. (6) Atrial fibrillation: Paroxysmal per records. EKG's here in May and today show AF. Continue metoprolol and warfarin. (7) Hypertension: Pt reports systolic BP's as low as 78 at home. BP in ED as low as 98/62. Hold lisinopril and diuretics. Continue metoprolol with hold parameters. (8) COPD, mild: Stable. Bronchodilators PRN. (9) SRAVANTHI (obstructive sleep apnea): CPAP. (10) GERD (gastroesophageal reflux disease): Continue PPI. 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 Usually managed with metformin, sitagliptin, empagliflozin. Random blood sugar in ED 171. Check Hgb A1c. Hold oral agents during hospital stay. Insulin coverage as needed. (12) Dyslipidemia: Check lipid profile. Continue rosuvastatin. (13) DVT prophylaxis: Continue warfarin. Ambulate. (14) Do not resuscitate status: Per patient's wishes. (15) Discharge planning issues: Anticipated discharge to home. Family Medicine follow-up with Dr. Kaminski. Cardiology follow-up with Dr. Dickey. History of Present Illness Chief Complaint: weakness Primary Care Provider: Roscoe Kaminski MD 74 YO male followed by Dr. Kaminski for Family Medicine and Dr. Dickey for Cardiology. History of coronary artery disease, diastolic CHF, paroxysmal atrial fibrillation, and other problems as noted. Has felt tired and run down over last few weeks. Sometimes notes lightheadedness and blurred vision. No loss of consciousness. No CP or SOB. Uses home O2, but just on PRN basis. BP's have been as low as 78 systolic. Patient relies on his who is a nurse to keep track of his medications; she was not in ED at time of my assessment. Apparently no recent medication changes. Allergies Allergy/AdvReac Type Severity Reaction Status Date / Time Sulfa (Sulfonamide Allergy Intermediate HIVES Verified 01/13/20 16:19 Antibiotics) Home Medications Home Medications Medication Instructions Recorded Confirmed Type allopurinol 100 mg tablet 100 mg PO BID tab 03/08/19 01/13/20 History bumetanide 1 mg tablet 1 mg PO QAM tab 03/08/19 01/13/20 History calcium carbonate 600 mg calcium 600 mg PO BID tab 03/08/19 01/13/20 History (1,500 mg) tablet lisinopril 40 mg tablet 20 mg PO HS #90 tab 03/08/19 01/13/20 History magnesium oxide 400 mg (241.3 mg 400 mg PO HS tab 03/08/19 01/13/20 History magnesium) tablet metformin 1,000 mg tablet 1,000 mg PO BID #180 tab 03/08/19 01/13/20 History metoprolol succinate 200 mg 200 mg PO QAM #90 tab 03/08/19 01/13/20 History tablet,extended release 24 hr omeprazole 20 mg capsule,delayed 20 mg PO BID cap 03/08/19 01/13/20 History release rosuvastatin 20 mg tablet 20 mg PO QPM #30 tab 03/08/19 01/13/20 History CPAP Machine #1 ea 03/11/19 01/02/20 Rx albuterol sulfate 90 mcg/actuation 2 puffs INHALATION Q4H PRN #18 gm 03/11/19 01/13/20 Rx aerosol inhaler miscellaneous medical supply #1 ea 03/11/19 01/02/20 Rx Januvia 100 mg PO QAM 05/31/19 01/13/20 History kmgkfrxuyoi-kokxeuyxi-cge C-Mn 1 cap PO BID 05/31/19 01/13/20 History omega 2-iaa-jsk-fish oil [Fish Oil] 1 cap PO QAM 05/31/19 01/13/20 History tobramycin 4 drp OPHTHALMIC (EYE) UD PRN 05/31/19 01/13/20 History Jardiance 10 mg PO QAM 06/26/19 01/13/20 History spironolactone 12.5 mg PO QAM 06/26/19 01/13/20 History miscellaneous medical supply #1 ea 10/23/19 01/02/20 Rx naproxen 187.5 mg PO DIRECTED PRN 01/13/20 01/13/20 History sildenafil (pulm.hypertension) 40 - 60 mg PO DIRECTED PRN 01/13/20 01/13/20 History warfarin See Rx Instructions .ROUTE .COMPLEX 01/13/20 01/13/20 History Past Med/Surg History Medical History (Updated 01/14/20 @ 04:36 by Roscoe Del Cid MD) Atrial fibrillation on warfarin Chronic cough Chronic diastolic heart failure echo 05/31/19 mod concentric LVH LVEF 55-60% grade II diastolic dysfunction Coronary artery disease cath 06/04/19 50% mid RCA, high grade stenosis posterior lateral branch, unsuccessful PCI Diabetes mellitus type 2 with complications Diabetes mellitus, type II (Chronic) Diverticular disease Do not resuscitate status GERD (gastroesophageal reflux disease) Gout Hearing deficit History of colon polyps History of SCC (squamous cell carcinoma) of skin Hypertension Left tibialis posterior tendonitis (Resolved) On anticoagulant therapy warfarin daily On home oxygen therapy 2L N/C prn Osteoarthritis Restrictive airway disease Sleep apnea cpap Tracheobronchopathia-osteochondroplastica (Chronic) Surgical History History of appendectomy (Inactive) History of bilateral cataract extraction History of bronchoscopy History of cardiac cath (~05/2019) x2--2004 ([facility] [place]) and 06/04/19 ([facility])--no stents--follows with Dr. Dickey History of carpal tunnel release of both wrists (Inactive) History of cholecystectomy (Inactive) History of colonoscopy with polypectomy History of esophagogastroduodenoscopy (EGD) History of total left knee replacement (TKR) History of total right knee replacement (TKR) (~2011) "R total knee arthroplasty in 2011" Hx of arthroscopic knee surgery (Inactive ~2001) "bilat by Dr. Thomas in 2001" Family History Sister Family hx of colon cancer Brother Family history of esophageal cancer Other Heart disease Lung disease No family history of adverse response to anesthesia Social History Preferred Language: Japanese Communication Ability: Effective Mat Puncher Required: No Beliefs That Will Affect Care: None Current Living Situation: Spouse Other Information That Helps Us Care for You: No Feels Safe at Home: Yes Safety Concerns: Feels Safe At This Time Smoking Status: Never smoker Do You Dip or Chew Tobacco: No ; Second Hand Exposure: No ; Tobacco Cessation Education Requested by Patient: No Hx Alcohol Use: No Hx Substance Use: No Review of Systems Constitutional: + fatigue; no fever and no weight loss Eyes: no diplopia and no worsening vision Ear, Nose, Mouth, Throat: + hearing loss; no nasal congestion, no sinus pain/pressure and no sore throat Respiratory: + dyspnea on exertion (chronic); no cough Cardiovascular: no chest pain, no palpitations and no edema Gastrointestinal: no nausea, no vomiting, no constipation, no diarrhea/loose stools, no blood in stools and no melena Genitourinary: no dysuria and no hematuria Musculoskeletal: + joint pain; no myalgia Integumentary: no rash and no new lesions recent mosquito bites Neurologic: + headache(s) (rare) + diabetic neuropathy Endocrine: no polydipsia and no polyuria blood sugars high at times Hematologic / Lymphatic: no easy bleeding, no easy bruising and no lymphadenopathy Physical Exam Constitutional: WD/WN, vitals as above no acute distress Eyes: PERRL, conjunctivae normal, anicteric sclerae ENMT: external ear and nose normal, oropharynx normal Ears: + hearing impairment Neck: trachea midline, no thyromegaly Respiratory: normal respiratory effort, lungs clear to auscultation no respiratory distress Auscultation: lungs clear to auscultation bilaterally Cardiovascular: Rate/Rhythm: + irregularly irregular Heart Sounds: no gallop, no murmur and no cardiac rub Vessels: normal peripheral pulses (pedal pulses diminished); no JVD Extremities: no calf tenderness and no edema Gastrointestinal (Abdomen): normal bowel sounds, soft, nontender, no hepato splenomegaly Musculoskeletal: Head/Neck/Chest: neck supple Extremities: strength 5/5 throughout; no cyanosis Skin: no rashes, warm and dry Neurologic: PERRL, EOMI no facial palsy no dysarthria or aphasia patellar DTR's 1/2 bilat Psychiatric: Orientation: alert and oriented x 3 Affect: euthymic affect Lymphatic: no cervical lymphadenopathy Results & Data Results & Data ([facility]) Vital Signs (Past 12 Hours) Vital Signs Temp Pulse Resp BP Pulse Ox 01/13/20 17:10 74 16 115/72 94 01/13/20 16:05 70 13 110/60 95 01/13/20 13:50 36 C L 75 18 98/62 L 94 Laboratory Results Laboratory Results - last 24 hr 01/13/20 01/13/20 01/13/20 13:57 15:46 15:46 WBC 7.88 RBC 5.22 Hgb 16.1 Hct 47.2 MCV 90.4 MCH 30.8 MCHC 34.1 RDW Std Deviation 51.6 H RDW Coeff of Katie 15.7 H Plt Count 203 MPV 10.3 Immature Gran % (Auto) 0.5 Neut % (Auto) 65.1 Lymph % (Auto) 22.7 [place] % (Auto) 10.9 Eos % (Auto) 0.8 Baso % (Auto) 0.0 Neut # (Auto) 5.13 Lymph # (Auto) 1.79 [place] # (Auto) 0.86 H Eos # (Auto) 0.06 Baso # (Auto) 0.00 Immature Gran # (Auto) 0.04 H PT 29.7 H INR 3.0 H APTT 40.4 H PTT Ratio 1.4 Sodium Potassium Chloride Carbon Dioxide Anion Gap BUN Creatinine Est Cr Clr Drug Dosing Est GFR ( Amer) Est GFR (Non-Af Amer) BUN/Creatinine Ratio Glucose POC Glucose 178 H Lactate Calcium Magnesium Total Bilirubin AST ALT Alkaline Phosphatase Troponin I Total Protein Albumin Globulin Albumin/Globulin Ratio Procalcitonin Random Cortisol Specimen Hemolysis Urine Color Urine Appearance Urine pH Ur Specific [place] Urine Protein Urine Glucose (UA) Urine Ketones Urine Blood Urine Nitrite Urine Bilirubin Urine Urobilinogen Ur Leukocyte Esterase 01/13/20 01/13/20 01/13/20 15:46 15:46 15:46 WBC RBC Hgb Hct MCV MCH MCHC RDW Std Deviation RDW Coeff of Katie Plt Count MPV Immature Gran % (Auto) Neut % (Auto) Lymph % (Auto) [place] % (Auto) Eos % (Auto) Baso % (Auto) Neut # (Auto) Lymph # (Auto) [place] # (Auto) Eos # (Auto) Baso # (Auto) Immature Gran # (Auto) PT INR APTT PTT Ratio Sodium 136 Potassium 5.3 H Chloride 105 Carbon Dioxide 21 Anion Gap 9.0 BUN 39 H Creatinine 1.72 H Est Cr Clr Drug Dosing 44.0 Est GFR ( Amer) 44.4 Est GFR (Non-Af Amer) 38.3 BUN/Creatinine Ratio 22.6 H Glucose 171 H POC Glucose Lactate 2.1 H* Calcium 10.2 H Magnesium 2.2 Total Bilirubin 0.7 AST 21 ALT 35 Alkaline Phosphatase 63 Troponin I < 0.015 Total Protein 7.3 Albumin 3.5 Globulin 3.8 Albumin/Globulin Ratio 0.9 Procalcitonin Random Cortisol 29.22 Specimen Hemolysis Urine Color Urine Appearance Urine pH Ur Specific [place] Urine Protein Urine Glucose (UA) Urine Ketones Urine Blood Urine Nitrite Urine Bilirubin Urine Urobilinogen Ur Leukocyte Esterase 01/13/20 01/13/20 01/13/20 15:46 16:00 18:05 WBC RBC Hgb Hct MCV MCH MCHC RDW Std Deviation RDW Coeff of Katie Plt Count MPV Immature Gran % (Auto) Neut % (Auto) Lymph % (Auto) [place] % (Auto) Eos % (Auto) Baso % (Auto) Neut # (Auto) Lymph # (Auto) [place] # (Auto) Eos # (Auto) Baso # (Auto) Immature Gran # (Auto) PT INR APTT PTT Ratio Sodium Potassium Chloride Carbon Dioxide Anion Gap BUN Creatinine Est Cr Clr Drug Dosing Est GFR ( Amer) Est GFR (Non-Af Amer) BUN/Creatinine Ratio Glucose POC Glucose Lactate 1.2 Calcium Magnesium Total Bilirubin AST ALT Alkaline Phosphatase Troponin I Total Protein Albumin Globulin Albumin/Globulin Ratio Procalcitonin 0.08 Random Cortisol Specimen Hemolysis Urine Color Yellow Urine Appearance Clear Urine pH 5.0 Ur Specific [place] 1.016 Urine Protein Negative Urine Glucose (UA) 2+ H Urine Ketones Negative Urine Blood Negative Urine Nitrite Negative Urine Bilirubin Negative Urine Urobilinogen Negative Ur Leukocyte Esterase Negative Diagnostic Findings PORTABLE CHEST X-RAY Reviewed by the undersigned and formally interpreted by Radiology: FINDINGS: Mild cardiomegaly. Diaphragms are smooth. Lungs are clear. IMPRESSION: No acute process. Mild stable cardiomegaly. ACT 112: Negative or not required by law. The above report was generated using voice recognition software. It may contain grammatical, syntax or spelling errors. Electronically signed by: Isaiah Ward M.D. 01/13/2020 4:[address] HEAD Findings: The paranasal sinuses and mastoid air cells are clear. The calvarium and skull base are intact. The ventricles and sulci are within normal limits. There is no mass, hematoma, midline shift, or acute infarct. Impression: No acute intracranial abnormality. Age-related atrophy and chronic small vessel change ACT 112: Negative or not required by law. The above report was generated using voice recognition software. It may contain grammatical, syntax or spelling errors. Electronically signed by: Isaiah Ward M.D. 01/13/2020 4:30 PM ECG Additional Comments: EKG performed at 1603 reviewed and demonstrated AF at 76 / min, LBBB, ST depression V6. Compared to 06/01/19, no significant changes. Code Status & VTE Plan Code Status Discussed with patient. No living will. He does not wish to have resuscitation attempted in the event of a cardiopulmonary arrest. Code status DNR. VTE Prophylaxis Plan VTE Prophylaxis will be ordered: Yes
[2020-01-13] MEDS ORDERED: ACETAMINOPHEN 325 MG TAB PO PRN (22:29)
[2020-01-13] MEDS: ROSUVASTATIN CALCIUM 20 MG TAB PO SCH (23:23)
[2020-01-13] MEDS: allopurinoL 100 MG TAB PO SCH (23:23)
[2020-01-13] MEDS: PANTOprazole 40 MG TAB PO SCH (23:23)
[2020-01-14] MEDS ORDERED: GLUCOSE 40% GEL 15 GM TUBE PO PRN (05:00)
[2020-01-14] MEDS ORDERED: GLUCAGON FOR INJ 1 MG VIAL IM PRN (05:00)
[2020-01-14] MEDS ORDERED: GLUCOSE 10 TABS/TUBE PO PRN (05:00)
[2020-01-14] MEDS ORDERED: DEXTROSE 50% 50 ML SYRINGE IV PRN (05:00)
[2020-01-14] MEDS ORDERED: CARBOHYDRATES FOR HYPOGLYCEMIA PO PRN (05:00)
[2020-01-14 06:24] LABS: INR 2.8 (0.9-1.1)
[2020-01-14 06:49] LABS: Estimated Average Glucose 243 mg/dl; Hemoglobin A1C 10.1 % (4.5-5.6)
[2020-01-14 07:18] LABS: Creatinine Clr Calc Pharmacy 65.2 ml/min; Est GFR (African American) 71.5; Est GFR (Non-African American) 61.7; Potassium 4.3 mmol/L (3.5-5.1)
--- NOTE | 2020-01-14 07:58 | Electrocardiogram Report ---
Test Reason : Blood Pressure : / mmHG Vent. Rate : 076 BPM Atrial Rate : 357 BPM P-R Int : 000 ms QRS Dur : 152 ms QT Int : 426 ms P-R-T Axes : 000 -52 105 degrees QTc Int : 479 ms Atrial fibrillation Left axis deviation Left bundle branch block Abnormal ECG When compared with ECG of 01-JUN-2019 06:36, No significant change was found Confirmed by Peter Farley ([id number]) on 01/14/2020 7:58:12 AM Referred By: REFERRED SELF Confirmed By:Peter Farley
[2020-01-14] MEDS: INSULIN ASPART 100 UNITS/ML 3 ML PEN SC SCH ×4 (08:05→21:01)
[2020-01-14] MEDS: allopurinoL 100 MG TAB PO SCH ×2 (08:05→21:00)
[2020-01-14] MEDS: PANTOprazole 40 MG TAB PO SCH ×2 (08:05→21:00)
[2020-01-14] MEDS ORDERED: METOPROLOL SUCC 50MG EXT REL TAB PO SCH (09:00)
--- NOTE | 2020-01-14 10:03 | Ultrasound Report ---
RENAL ULTRASOUND CLINICAL HISTORY: Acute kidney injury. COMPARISON STUDY: CT of the abdomen and pelvis June 01, 2019. TECHNIQUE: Sonography of the kidneys and the urinary bladder was performed. FINDINGS: Right kidney measures 13.3 cm in maximal dimension and the left measures 13.4 cm. There is no hydronephrosis. Mild to moderate renal cortical thinning is noted. Note is made of a 1.5 cm cyst w ithin the right kidney. Both ureteral jets were visualized. IMPRESSION: 1. No hydronephrosis. 2. Mild to moderate bilateral renal cortical thinning. ACT 112: Negative or not required by law. Electronically signed by: Darian Patel M.D. 01/14/2020 10:01 AM
--- NOTE | 2020-01-14 10:07 | Ultrasound Report ---
DOPPLER ULTRASOUND OF THE RENAL ARTERIES CLINICAL HISTORY: Acute renal insufficiency. COMPARISON STUDY: Renal ultrasound dated 01/14/2020. TECHNIQUE: Doppler sonography of the renal arteries was performed to assess renal artery stenosis. Im ages are reviewed in the transverse and longitudinal planes. FINDINGS: The kidneys demonstrate cortical atrophy and are without hydronephrosis. On the right, intrarenal arterial resistive indices range from 0.61 to 0.68. Intrarenal arterial wave forms are normal with brisk upstrokes. The right renal arterial waveform is normal, and velocities wi thin the right renal artery measure up to 165 cm/sec. The right renal vein is patent. On the left, intrarenal arterial resistive indices range from 0.66 to 0.74. Intrarenal arterial wave forms are normal with brisk upstrokes. The left renal arterial waveform is normal, and velocities wit hin the left renal artery measure up to 161 cm/sec. The left renal vein is patent. The abdominal aorta is patent. Velocities within the abdominal aorta measure up to 87 cm/s. IMPRESSION: There is no sonographic evidence of renal artery stenosis. ACT 112: Negative or not required by law. Electronically signed by: Jann Goss M.D. 01/14/2020 10:06 AM
[2020-01-14] MEDS ORDERED: SODIUM CHLORIDE 0.9% 1000ML 1,000 ML IV SCH (13:15)
[2020-01-14] MEDS ORDERED: WARFARIN SOD 2.5 MG TAB PO ONE (20:30)
--- NOTE | 2020-01-14 20:37 | Hospitalist Progress Note ---
Date of Service January 14, 2020 Assessment & Plan (1) Acute kidney injury: Serum creatinine 1.72 at time of admission, compared to 0.86 06/06/19. Consider volume depletion, renovascular disease, NSAID. Holding lisinopril and diuretics. Avoid NSAID's. Received IV fluids in ED. CPK normal. Renal US showed mild cortical thinning, no obstruction. Renal artery duplex did not show any evidence of renovascular disease. Creatinine today = 1.16. Follow. (2) Acute hyperkalemia: Serum K 5.3 at time of admission. Stopped lisinopril and spironolactone. K today = 4.3. Follow. (3) Acute hypotension: Pt reports systolic BP's as low as 78 at home. BP in ED as low as 98/62. Did not appear to be septic. Holding lisinopril and diuretics. BP this morning 109/71; BP this afternoon 84/58. Another liter of NSS ordered. Follow and titrate Rx. (4) Coronary artery disease: No anginal symptoms. Need to clarify if pt on anti-platelet therapy. Continue metoprolol and statin. (5) Chronic diastolic heart failure: Compensated. Holding diuretics because of MARY ANNE. Follow exam, weights. (6) Atrial fibrillation: Paroxysmal per records. EKG's here in May and today show AF. Continue metoprolol and warfarin. INR today = 2.8. (7) Hypertension: Pt reports systolic BP's as low as 78 at home. BP in ED as low as 98/62. Hold lisinopril and diuretics. Continue metoprolol with hold parameters. (8) COPD, mild: Stable. Bronchodilators PRN. (9) SRAVANTHI (obstructive sleep apnea): CPAP. (10) GERD (gastroesophageal reflux disease): Continue PPI. 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 Usually managed with metformin, sitagliptin, empagliflozin. Random blood sugar in ED 171. Hgb A1c = 10.1. Hold oral agents during hospital stay. Insulin coverage as needed. Ongoing diabetes education / support after discharge. (12) Dyslipidemia: LDL-c = 35. Continue rosuvastatin. (13) DVT prophylaxis: Continue warfarin. Ambulate. (14) Do not resuscitate status: Per patient's wishes. (15) Discharge planning issues: Anticipated discharge to home. Family Medicine follow-up with Dr. Kaminski. Cardiology follow-up with Dr. Dickey. Admission and Anticipated Discharge Date Admission Date: January 13, 2020 Subjective Recheck for hypotension, acute kidney injury, and other problems. Patient seen in their room around 1310. Feels better. BP still low this afternoon. No chest pain or SOB. Good urine output. Review of Systems: Constitutional- no fever. Cardiac- as noted above. Pulmonary- no cough or SOB. GI- no nausea, vomiting, diarrhea, melena, hematochezia. - no urinary symptoms. Otherwise, as noted above. Physical Exam Constitutional: no acute distress Respiratory: no respiratory distress Auscultation: lungs clear to ausculta tion bilaterally Cardiovascular: Rate/Rhythm: regular rate and regular rhythm Vessels: no JVD Extremities: no calf tenderness and no edema Gastrointestinal (Abdomen): normal bowel sounds, soft, nontender, no hepato splenomegaly Musculoskeletal: Extremities: no cyanosis Skin: no rashes, warm and dry Psychiatric: Orientation: alert and oriented x 3 Results & Data Results & Data ([facility]) Vital Signs (Past 12 Hours) Vital Signs Temp Pulse Pulse Resp BP Pulse Ox 01/14/20 19:31 36.6 C 73 19 140/91 98 01/14/20 16:20 69 01/14/20 15:00 36.5 C 70 18 120/75 97 01/14/20 12:00 36.4 C L 73 18 84/58 L 94 Laboratory Results 01/13/20 15:46 01/14/20 05:28
[2020-01-14] MEDS: ROSUVASTATIN CALCIUM 20 MG TAB PO SCH (21:01)
[2020-01-14] MEDS: INSULIN GLARGINE SOLOSTAR 100 UNITS/ML 3 ML PEN SC SCH (21:02)
[2020-01-15 08:18] LABS: INR 2.1 (0.9-1.1); Prothrombin Time 21.1 Seconds (9.0-12.0)
[2020-01-15] MEDS: METOPROLOL SUCC 50MG EXT REL TAB PO SCH (08:23)
[2020-01-15] MEDS: PANTOprazole 40 MG TAB PO SCH ×2 (08:24→20:58)
[2020-01-15] MEDS: allopurinoL 100 MG TAB PO SCH ×2 (08:25→21:02)
[2020-01-15] MEDS: INSULIN GLARGINE SOLOSTAR 100 UNITS/ML 3 ML PEN SC SCH ×2 (08:25→20:58)
[2020-01-15] MEDS: INSULIN ASPART 100 UNITS/ML 3 ML PEN SC SCH ×4 (08:27→20:56)
[2020-01-15 08:42] LABS: BUN Creatinine Ratio 18.3 (10-20); Calcium 9.5 mg/dl (8.5-10.1); Creatinine Clr Calc Pharmacy 79.3 ml/min; Est GFR (Non-African American) 78.5
[2020-01-15] MEDS ORDERED: WARFARIN SOD 2.5 MG TAB PO SCH (16:00)
--- NOTE | 2020-01-15 20:17 | Hospitalist Progress Note ---
Date of Service January 15, 2020 Assessment & Plan (1) Acute kidney injury: Possible related to volume depletion since BP had been running low Serum creatinine 1.72 at time of admission, compared to 0.86 06/06/19. Received IV fluids in ED. Renal US showed mild cortical thinning, no obstruction. Renal artery duplex did not show any evidence of renovascular disease. continue to hold lisinopril and diuretics. Continue to avoid nephrotoxic agents Creatinine today = 0.95 Resolved (2) Acute hyperkalemia: Serum K 5.3 at time of admission. Continue to hold lisinopril and spironolactone. K today = 4.0 Continue monitor BMP (3) Acute hypotension: BP on admission 98/62 Had low BP as home in the s Continue to hold lisinopril and diuretics. Received IV fluid BP stable Will decrease lisinopril to 5mg on discharge (4) Coronary artery disease: Denies any symptoms. Continue metoprolol and statin Stable (5) Chronic diastolic heart failure: Compensated. CXR showed no acute process. Mild stable cardiomegaly. Will resume spironolactone on discharge Stable (6) Atrial fibrillation: Rate control with metoprolol Continue metoprolol and warfarin. INR today = 2.1 Continyue coumadin (7) Hypertension: BP in ED as low as 98/62 BP improves Continue metoprolol with hold parameters. Lisinopril and spironolactone on hold (8) COPD, mild: Stable. Bronchodilators PRN. (9) SRAVANTHI (obstructive sleep apnea): CPAP. (10) GERD (gastroesophageal reflux disease): Continue PPI. 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 Usually managed with metformin, sitagliptin, empagliflozin. Random blood sugar in ED 171. Hgb A1c = 10.1. Hold oral agents during hospital stay. Insulin coverage as needed. Ongoing diabetes education / support after discharge. (12) Dyslipidemia: LDL-c = 35. Continue rosuvastatin. (13) DVT prophylaxis: Continue warfarin. Ambulate. (14) Do not resuscitate status: Per patient's wishes. (15) Discharge planning issues: Anticipated discharge to home. Family Medicine follow-up with Dr. Kaminski. Cardiology follow-up with Dr. Dickey. Admission and Anticipated Discharge Date Admission Date: January 13, 2020 Subjective Pt was seen and examined Lying in bed with no distress Pt said that he feels much better He said that he feels back to his baseline Denies any palpitation, dizziness, fever and SOB Physical Exam Physical Exam: General- No acute distress Head- atraumatic Eyes- PERRL, EOMI, ENT- oropharynx clear Neck- supple, no JVD Lungs- clear to auscultation Heart- regular rhythm; no murmur Abdomen- normal bowel sounds, soft, nontender Extremities- no calf tenderness Neuro- alert, oriented x 3; PERRL, EOMI; no facial palsy; no dysarthria Skin- warm & dry Results & Data Results & Data ([facility]) Vital Signs (Past 12 Hours) Vital Signs Temp Pulse Pulse Resp BP Pulse Ox 01/15/20 19:00 36.5 C 69 20 137/75 93 01/15/20 16:00 59 L 01/15/20 14:59 36.3 C L 77 20 129/74 96 01/15/20 11:41 36.8 C 53 L 20 124/74 95
[2020-01-15] MEDS: ROSUVASTATIN CALCIUM 20 MG TAB PO SCH (21:01)
[2020-01-16] MEDS: PANTOprazole 40 MG TAB PO SCH (08:14)
[2020-01-16] MEDS: allopurinoL 100 MG TAB PO SCH (08:14)
[2020-01-16] MEDS: METOPROLOL SUCC 50MG EXT REL TAB PO SCH (08:14)
[2020-01-16] MEDS: INSULIN GLARGINE SOLOSTAR 100 UNITS/ML 3 ML PEN SC SCH (08:15)
[2020-01-16] MEDS: INSULIN ASPART 100 UNITS/ML 3 ML PEN SC SCH ×2 (08:16→12:36)
[2020-01-16] MEDS ORDERED: BUMETANIDE 1 MG TAB PO SCH (11:00)
--- NOTE | 2020-01-16 15:16 | Discharge Summary ---
Date of Service January 16, 2020 Admission HPI Per Admitting Provider 74 YO male followed by Dr. Kaminski for Family Medicine and Dr. Dickey for Cardiology. History of coronary artery disease, diastolic CHF, paroxysmal atrial fibrillation, and other problems as noted. Has felt tired and run down over last few weeks. Sometimes notes lightheadedness and blurred vision. No loss of consciousness. No CP or SOB. Uses home O2, but just on PRN basis. BP's have been as low as 78 systolic. Patient relies on his who is a nurse to keep track of his medications; she was not in ED at time of my assessment. Apparently no recent medication changes. Admission Exam Per Admitting Provider Constitutional: + fatigue; no fever and no weight loss Eyes: no diplopia and no worsening vision Ear, Nose, Mouth, Throat: + hearing loss; no nasal congestion, no sinus pain/pressure and no sore throat Respiratory: + dyspnea on exertion (chronic); no cough Cardiovascular: no chest pain, no palpitations and no edema Gastrointestinal: no nausea, no vomiting, no constipation, no diarrhea/loose stools, no blood in stools and no melena Genitourinary: no dysuria and no hematuria Musculoskeletal: + joint pain; no myalgia Integumentary: no rash and no new lesions recent mosquito bites Neurologic: + headache(s) (rare) + diabetic neuropathy Endocrine: no polydipsia and no polyuria blood sugars high at times Hematologic / Lymphatic: no easy bleeding, no easy bruising and no lymphadenopathy Principal Diagnosis Acute kidney injury: Acute hyperkalemia: Acute hypotension: Coronary artery disease: Chronic diastolic heart failure: Atrial fibrillation: Hypertension: COPD, mild: SRAVANTHI (obstructive sleep apnea): GERD (gastroesophageal reflux disease): 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 Dyslipidemia: Discharge Exam General- No acute distress Head- atraumatic Eyes- PERRL, EOMI, ENT- oropharynx clear Neck- supple, no JVD Lungs- clear to auscultation Heart- regular rhythm; no murmur Abdomen- normal bowel sounds, soft, nontender Extremities- no calf tenderness Neuro- alert, oriented x 3; PERRL, EOMI; no facial palsy; no dysarthria Skin- warm & dry Discharge Data Allergies Allergy/AdvReac Type Severity Reaction Status Date / Time Sulfa (Sulfonamide Allergy Intermediate HIVES Verified 01/13/20 16:19 Antibiotics) Consultations 01/13/20 17:14 ED Decision to Admit Stat Ordered Studies 01/13/20 15:32 CT head/brain wo con Stat 01/14/20 08:30 US renal/blad retro comp Routine 01/14/20 09:00 US duplex renal artery Routine XR chest 1V portable CLINICAL HISTORY: SEPSIS dyspnea COMPARISON STUDY: 05/31/2019 FINDINGS: Mild cardiomegaly. Diaphragms are smooth. Lungs are clear. IMPRESSION: No acute process. Mild stable cardiomegaly. ACT 112: Negative or not required by law. The above report was generated using voice recognition software. It may contain grammatical, syntax or spelling errors. Electronically signed by: Isaiah Ward M.D. 01/13/2020 4:54 PM Dictated: 01/13/20 1653 Transcribed: 01/13/[address] head/brain wo con CT DOSE: 614.27 mGy.cm HISTORY: Mental status change. Hypotension. dizzy TECHNIQUE: Multiaxial CT images of the head were performed without the use of intravenous contrast. A dose lowering technique was utilized adhering to the principles of ALARA. Comparison: None. Findings: The paranasal sinuses and mastoid air cells are clear. The calvarium and skull base are intact. The ventricles and sulci are within normal limits. There is no mass, hematoma, midline shift, or acute infarct. Impression: No acute intracranial abnormality. Age-related atrophy and chronic small vessel change ACT 112: Negative or not required by law. The above report was generated using voice recognition software. It may contain grammatical, syntax or spelling errors. Electronically signed by: Isaiah Ward M.D. 01/13/2020 4:30 PM Dictated: 01/13/20 1629 Transcribed: 01/13/20 1629 RENAL ULTRASOUND CLINICAL HISTORY: Acute kidney injury. COMPARISON STUDY: CT of the abdomen and pelvis June 01, 2019. TECHNIQUE: Sonography of the kidneys and the urinary bladder was performed. FINDINGS: Right kidney measures 13.3 cm in maximal dimension and the left measures 13.4 cm. There is no hydronephrosis. Mild to moderate renal cortical thinning is noted. Note is made of a 1.5 cm cyst within the right kidney. Both ureteral jets were visualized. IMPRESSION: 1. No hydronephrosis. 2. Mild to moderate bilateral renal cortical thinning. ACT 112: Negative or not required by law. Electronically signed by: Darian Patel M.D. 01/14/2020 10:01 AM Dictated: 01/14/20 1000 Transcribed: 01/14/20 1000 RENAL ULTRASOUND CLINICAL HISTORY: Acute kidney injury. COMPARISON STUDY: CT of the abdomen and pelvis June 01, 2019. TECHNIQUE: Sonography of the kidneys and the urinary bladder was performed. FINDINGS: Right kidney measures 13.3 cm in maximal dimension and the left measures 13.4 cm. There is no hydronephrosis. Mild to moderate renal cortical thinning is noted. Note is made of a 1.5 cm cyst within the right kidney. Both ureteral jets were visualized. IMPRESSION: 1. No hydronephrosis. 2. Mild to moderate bilateral renal cortical thinning. ACT 112: Negative or not required by law. Electronically signed by: Darian Patel M.D. 01/14/2020 10:01 AM Dictated: 01/14/20 1000 Transcribed: 01/14/20 1000 DOPPLER ULTRASOUND OF THE RENAL ARTERIES CLINICAL HISTORY: Acute renal insufficiency. COMPARISON STUDY: Renal ultrasound dated 01/14/2020. TECHNIQUE: Doppler sonography of the renal arteries was performed to assess renal artery stenosis. Images are reviewed in the transverse and longitudinal planes. FINDINGS: The kidneys demonstrate cortical atrophy and are without hydronephrosis. On the right, intrarenal arterial resistive indices range from 0.61 to 0.68. Intrarenal arterial waveforms are normal with brisk upstrokes. The right renal arterial waveform is normal, and velocities within the right renal artery jasmina ure up to 165 cm/sec. The right renal vein is patent. On the left, intrarenal arterial resistive indices range from 0.66 to 0.74. Intrarenal arterial waveforms are normal with brisk upstrokes. The left renal arterial waveform is normal, and velocities within the left renal artery measure up to 161 cm/sec. The left renal vein is patent. The abdominal aorta is patent. Velocities within the abdominal aorta measure up to 87 cm/s. IMPRESSION: There is no sonographic evidence of renal artery stenosis. ACT 112: Negative or not required by law. Electronically signed by: Jann Goss M.D. 01/14/2020 10:06 AM Dictated: 01/14/20 1004 Transcribed: 01/14/20 1004 Hospital Course (1) Acute kidney injury: Possible related to volume depletion since BP had been running low Serum creatinine 1.72 at time of admission, compared to 0.86 06/06/19. Received IV fluids in ED. Renal US showed mild cortical thinning, no obstruction. Renal artery duplex did not show any evidence of renovascular disease. continue to hold lisinopril and diuretics. Continue to avoid nephrotoxic agents Creatinine today = 0.95 Resolved (2) Acute hyperkalemia: Serum K 5.3 at time of admission. Continue to hold lisinopril and spironolactone. K today = 4.0 Continue monitor BMP (3) Acute hypotension: BP on admission 98/62 Had low BP as home in the s Continue to hold lisinopril and diuretics. Received IV fluid BP stable Will decrease lisinopril to 5mg on discharge (4) Coronary artery disease: Denies any symptoms. Continue metoprolol and statin Stable (5) Chronic diastolic heart failure: Compensated. CXR showed no acute process. Mild stable cardiomegaly. Will resume spironolactone on discharge Stable (6) Atrial fibrillation: Rate control with metoprolol Continue metoprolol and warfarin. INR today = 2.1 Continyue coumadin (7) Hypertension: BP in ED as low as 98/62 BP improves Continue metoprolol with hold parameters. Lisinopril and spironolactone on hold (8) COPD, mild: Stable. Bronchodilators PRN. (9) SRAVANTHI (obstructive sleep apnea): CPAP. (10) GERD (gastroesophageal reflux disease): Continue PPI. 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 Usually managed with metformin, sitagliptin, empagliflozin. Random blood sugar in ED 171. Hgb A1c = 10.1. Hold oral agents during hospital stay. Insulin coverage as needed. Ongoing diabetes education / support after discharge. (12) Dyslipidemia: LDL-c = 35. Continue rosuvastatin. (13) DVT prophylaxis: Continue warfarin. Ambulate. (14) Do not resuscitate status: Per patient's wishes. (15) Discharge planning issues: Anticipated discharge to home. Family Medicine follow-up with Dr. Kaminski. Cardiology follow-up with Dr. Dickey. 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 Dyslipidemia: Condition on Discharge: Good Activity: Resume your previous activity Non-emergency contact: Primary Care Provider Call non-emergency contact if: you have any medication questions Follow-up/Referrals: Roscoe Kaminski MD [Primary Care Provider] - 01/21/20 10:20 am (01/21/2020 10:20 AM Provider Roscoe Kaminski III, MD Department [facility] ) Diet: Carb Consistent or DM2 Addtl Attending Provider Instructions: Follow up with your primary care provider Dr. Kaminski on 01/20 @ 10:00AM Follow up with your cardiology dr. Dickey (Please call for the appointment) Follow up with the coumadin clinic to monitor your PT/INR Continue monitor your blood pressure and bring your blood pressure log at your next appointment with your physician Check BMP in 1 week to monitor your electrolytes and kidney function Fall precaution Pending Studies at Discharge: No Stand-Alone Forms: [employer], Smoking Cessation Medications and DC Order Prescriptions: New lisinopril 5 mg tablet 5 mg PO DAILY Qty: 30 RF: 0 metoprolol succinate 100 mg tablet extended release 24 hr 100 mg PO DAILY Qty: 30 RF: 0 Continued rosuvastatin 20 mg tablet 20 mg PO QPM Qty: 30 RF: 0 metformin [Glucophage] 1,000 mg tablet 1,000 mg PO BID Qty: 180 RF: 0 magnesium oxide 400 mg (241.3 mg magnesium) tablet 400 mg PO HS RF: 0 bumetanide 1 mg tablet 1 mg PO QAM RF: 0 omeprazole 20 mg capsule,delayed release(DR/EC) 20 mg PO BID RF: 0 calcium carbonate 600 mg calcium (1,500 mg) tablet 600 mg PO BID RF: 0 allopurinol 100 mg tablet 100 mg PO BID RF: 0 albuterol sulfate 90 mcg/actuation HFA aerosol inhaler 2 puffs inhalation Q4H PRN (Reason: shortness of breath or wheezing) Qty: 18 RF: 5 (DME) CPAP Machine Misc See Dose Instructions .ROUTE .MEDSUPPLY Qty: 1 RF: 0 (DME) CPAP Supplies Misc See Dose Instructions .ROUTE .MEDSUPPLY Qty: 1 RF: 0 (DME) CPAP Supplies Misc See Rx Instructions .ROUTE .MEDSUPPLY Qty: 1 RF: 0 [id number] C-Mn Capsule 1 cap PO BID RF: 0 tobramycin 0.3 % Drops 4 drp ophthalmic (eye) UD PRN (Reason: as directed) RF: 0 Januvia 100 mg Tablet 100 mg PO QAM RF: 0 omega [id number] oil [Fish Oil] 1,000 mg (120 mg-180 mg) Capsule 1 cap PO QAM RF: 0 Jardiance 10 mg Tablet 10 mg PO QAM RF: 0 spironolactone 25 mg tablet 12.5 mg PO QAM RF: 0 warfarin 5 mg Tablet See Rx Instructions .ROUTE .COMPLEX RF: 0 naproxen 375 mg Tablet 187.5 mg PO DIRECTED PRN (Reason: Pain) RF: 0 sildenafil (pulm.hypertension) 20 mg Tablet 40 - 60 mg PO DIRECTED PRN (Reason: NEEDED) RF: 0 Discontinued lisinopril 40 mg tablet 20 mg PO HS Qty: 90 RF: 0 metoprolol succinate 200 mg tablet extended release 24 hr 200 mg PO QAM Qty: 90 RF: 0 Discharge Orders: Discharge Order (Routine); Ordered 01/16/20 Ordered By: Alejandro Merrill/Other Patient Handouts: Diabetes and Heart Disease, Healthy Meals for Diabetes, Diabetes: The Benefits of Exercise, Managing Diabetes: The A1C Test Admission Data Admit Date/Time: 01/13/20 18:03 Attending Provider: Alejandro Marin Admit Provider: Roscoe Del Cid Primary Care Provider: Roscoe Kaminski Other Providers: Roscoe Del Cid Other Interventions: Discharge Summary Assessment (RN) Last Done: 01/16/20 13:02
== END 2020-01-16 15:31 | disposition home or self-care (01) | DRG 315 ==
LOC: ED 13:40 → SUATTDRO 18:03 → 2W 18:03

== ENCOUNTER 2021-03-23 10:44 | Inpatient (IN) ==
[2021-03-23] MEDS ORDERED: SODIUM CHLORIDE 0.9% 250 ML IV PRN (11:43)
[2021-03-23] MEDS ORDERED: SODIUM CHLORIDE 0.9% 1000ML 2,000 ML IV ONE (11:43)
--- NOTE | 2021-03-23 11:43 | Emergency Department Note ---
Impression & Plan Acute GI bleeding, Atrial fibrillation, Anemia, Diverticulitis ED Provider Note NAME: VALENTINO JURADO AGE: 76 SEX: M : 1945 ARRIVES VIA: Walk-In INFORMANT: Patient ED PROVIDER(S): Jayro Elias DO CHIEF COMPLAINT: Bright red blood per rectum HPI: Patient is a 76-year-old male on Coumadin the presents the ER for bright red blood per rectum which has been going on since yesterday. He has been having about 1 episode every hour. He has had a large amount of blood out each time. He admits to feeling weak and lightheaded. No headache or change in vision. No chest pain or shortness of breath. No nausea or vomiting. Denies any dysuria, urgency, or frequency. No other exacerbating or remitting factors. He does note that he had a hemorrhoid that came out that he has had pushed back in. ROS: See above HPI for pertinent positives & negatives. A total of 10 systems reviewed and were otherwise negative. PAST MEDICAL HISTORY:See Below PAST SURGICAL HISTORY:See Below FAMILY HISTORY:See Below SOCIAL HISTORY:See Below HOME MEDICATIONS:See Below ALLERGIES:See Below VITALS:See Below PHYSICAL EXAMINATION: GENERAL: Sitting up in bed, alert, well appearing, well nourished, no distress, non-toxic EYE EXAM: normal conjunctiva. PERRL and EOM's grossly intact. OROPHARYNX: no exudate, no erythema, lips, buccal mucosa, and tongue normal and mucous membranes are moist NECK: supple, no nuchal rigidity, no adenopathy, non-tender LUNGS: Clear to auscultation. Normal chest wall mechanics HEART: no murmurs, S1 normal and S2 normal ABDOMEN: abdomen soft, non-tender, normo-active bowel sounds, no masses, no rebound or guarding. RECTAL: Dark melanotic blood UPPER EXTREMITIES: upper extremities are grossly normal. LOWER EXTREMITIES: No pitting edema. NEURO EXAM: Normal sensorium, cranial nerves II-XII grossly intact, normal speech, no gross weakness of arms, no gross weakness of legs. MEDICAL DECISION MAKING: Patient is a 76-year-old male who presents ER for bright red blood per rectum that is been present for the past 24 hours. He notes has been going to the bathroom once an hour. Initially upon presentation he was found to be hypotensive with systolic pressures in the 80s. IV was established blood was obtained. Labs show a hemoglobin of 10 down from baseline of 15. INR was supratherapeutic at 3.6. He is on this for A. fib. He does not have a valve issue. BMP with slightly elevated chloride. BUN was elevated at 23. LFTs bilirubin was unremarkable. Covid was negative. Patient was typed and crossed. He was given 10 mg of IV vitamin K as well as K Centra with the hypotension in the 80s and near 5 g drop in hemoglobin. He was updated bedside in regards to the risk of clotting he was agreeable. CT abdominal pelvis shows diverticulitis. He was given IV Zosyn as well as IV fluids updated bedside. He maintains his pressures after arrival in the 120s. Discussed with hospitalist admitted for further work-up. No active bleeding while in the ER. Triage Nursing notes reviewed. Limited review of prior medical records performed Vital Signs: reviewed and remarkable for hypotension Differential diagnosis: Differential diagnosis includes etiologies such as diverticulitis, diverticulosis, AVM, coagulopathy, colitis, inflammatory bowel disease, malignancy, Natalie-George tear, esophagitis, peptic ulcer disease, variceal bleed, gastritis, epistaxis, fissure, hemorrhoids, as well as others were entertained. ER treatment provided: See below Diagnostics interpreted by me: ECG: A. fib rate 103 Left axis Left bundle branch block QTC 448 Cardiac Monitoring: An order was placed for continuous cardiac monitoring. The monitor shows a rate of 101 with afb rhythm. Laboratory studies: As stated above and show below. Imaging studies: CT abdomen pelvis showed diverticulitis Consultation(s): Discussed with hospitalist for further evaluation Procedures: none Critical Care: I have personally spent 32 minutes of critical care time in the direct management of this patient. This includes bedside care, interpretation of diagnostic studies, and testing, discussion with consultants, patient, and family members, and other required patient management activities. This 32 minutes is in excess of all separately billable procedures. Past Med/Surg History Medical History Arthralgia of right wrist Atrial fibrillation on warfarin Cervical pain Cervical radicular pain Chest wall pain Chronic cough Chronic diastolic heart failure echo 05/31/19 mod concentric LVH LVEF 55-60% grade II diastolic dysfunction Coronary artery disease cath 06/04/19 50% mid RCA, high grade stenosis posterior lateral branch, unsuccessful PCI Diabetes mellitus type 2 with complications Diabetes mellitus, type II Diverticular disease Do not resuscitate status GERD (gastroesophageal reflux disease) Gout Hearing deficit History of colon polyps History of SCC (squamous cell carcinoma) of skin Hypertension Intercostal neuralgia Left ankle pain Left tibialis posterior tendonitis Myofascial pain On anticoagulant therapy warfarin daily On home oxygen therapy 2L N/C prn Osteoarthritis Restrictive airway disease Shoulder pain Sleep apnea cpap Tracheobronchopathia-osteochondroplastica Surgical History History of appendectomy History of bilateral cataract extraction History of bronchoscopy History of cardiac cath (~05/2019) x2--2003 ([facility] [place]) and 06/04/19 ([facility])--no stents--follows with Dr. Dickey History of carpal tunnel release of both wrists History of cholecystectomy History of colonoscopy with polypectomy History of esophagogastroduodenoscopy (EGD) History of total left knee replacement (TKR) History of total right knee replacement (TKR) (~2011) "R total knee arthroplasty in 2011" Hx of arthroscopic knee surgery (~2001) "bilat by Dr. Thomas in 2001" Family History Sister Family hx of colon cancer Brother Family history of esophageal cancer Other Heart disease Lung disease No family history of adverse response to anesthesia Social History Smoking Status: Former smoker Tobacco Type: Cigarettes Second Hand Exposure: No; Hx Alcohol Use: No Hx Substance Use: No Preferred Language: Portuguese Communication Ability: Effective Visual Impairment: No Limitations Hearing Ability: Normal Disaster Director Required: No Beliefs That Will Affect Care: None Current Living Situation: Spouse Other Information That Helps Us Care for You: No Feels Safe at Home: Yes Safety Concerns: Feels Safe At This Time Assistive Devices: CPAP Allergies Allergies Allergy/AdvReac Type Severity Reaction Status Date / Time Sulfa (Sulfonamide Allergy Intermediate HIVES Verified 03/23/21 14:07 Antibiotics) Home Meds Home Medications Medication Instructions Recorded Confirmed allopurinol 100 mg tablet 100 mg PO BID tab 03/08/19 03/23/21 (Zyloprim) bumetanide 1 mg tablet 0.5 mg PO QAM tab 03/08/19 03/23/21 calcium carbonate 600 mg calcium 600 mg PO BID tab 03/08/19 03/23/21 (1,500 mg) tablet (Calcium) magnesium oxide 400 mg (241.3 mg 400 mg PO HS tab 03/08/19 03/23/21 magnesium) tablet (MagOx) omeprazole 20 mg capsule,delayed 20 mg PO BID cap 03/08/19 03/23/21 release rosuvastatin 20 mg tablet (Crestor) 20 mg PO HS #30 tab 03/08/19 03/23/21 vmffnwadjth-ymvsggege-dac C-Mn 2 cap PO HS 05/31/19 03/23/21 capsule (Glucosamine-Chondroitin Complx) omega 4-enu-vns-fish oil 1,000 mg 1 cap PO BID 05/31/19 03/23/21 (120 mg-180 mg) capsule (Fish Oil) tobramycin 0.3 % eye drops (Tobrex) 4 drp OPHTHALMIC (EYE) UD PRN 05/31/19 03/23/21 spironolactone 25 mg tablet 12.5 mg PO QAM 06/26/19 03/23/21 (Aldactone) sildenafil (pulm.hypertension) 20 40 - 60 mg PO DIRECTED PRN 01/13/20 03/23/21 mg tablet (Revatio) warfarin 5 mg tablet (Jantoven) See Rx Instructions .ROUTE .COMPLEX 01/13/20 03/23/21 semaglutide 14 mg tablet (Rybelsus) 14 mg PO DAILYBB 04/16/20 03/23/21 empagliflozin 25 mg tablet 25 mg PO QAM 03/23/21 03/23/21 (Jardiance) metformin 500 mg tablet,extended 1,000 mg PO BID 03/23/21 03/23/21 release 24 hr metoprolol succinate 100 mg 100 mg PO QAM 03/23/21 03/23/21 tablet,extended release 24 hr (Toprol XL) mupirocin 2 % topical ointment 1 applic TOP BID PRN 03/23/21 03/23/21 (Centany) peg 400-propylene glycol 0.4 %-0.3 1 drp OPHTHALMIC (EYE) 5XD PRN 03/23/21 03/23/21 % eye drops (Systane (propylene glycol)) sodium chloride 0.65 % nasal spray 2 spray INTRANASAL QID PRN 03/23/21 03/23/21 aerosol (Saline Mist) tamsulosin 0.4 mg capsule (Flomax) 0.4 mg PO QAM 03/23/21 03/23/21 Previous Rx's Medication Instructions Recorded desonide 0.05 % topical ointment 1 applic TOPICAL .COMPLEX PRN #15 g 09/17/20 chlorpheniramine maleate 4 mg 4 mg PO Q12H 30 Days #60 tab 01/27/21 tablet (Allergy Relief (chlorpheniramine)) fluticasone propionate 50 1 spray INTRANASAL BID #18.2 ml 01/27/21 mcg/actuation nasal spray,suspension (Flonase Allergy Relief) pseudoephedrine HCl 120 mg 120 mg PO BID 30 Days #60 tab 01/27/21 tablet,extended release (Sudafed 12 Hour) Results & Data (ED) Vital Signs Vital Signs - 24 hr 03/23/21 11:06 03/23/21 11:46 03/23/21 11:51 Temperature 36.5 C Temperature Source Oral Pulse Rate 82 99 H Respiratory Rate 18 17 Blood Pressure 88/58 L 102/60 Blood Pressure Mean 68 74 Pulse Oximetry 99 Oxygen Delivery Method Room Air Room Air Sepsis Recent Fever Within 48 Hours No Sepsis New/Unexplained Change in Mental Status No Sepsis Action Taken by Nursing No Action Required 03/23/21 12:00 03/23/21 12:30 03/23/21 13:00 Temperature Temperature Source Pulse Rate 96 H 93 H 86 Respiratory Rate 20 23 18 Blood Pressure 112/63 126/72 120/77 Blood Pressure Mean 79 90 91 Pulse Oximetry Oxygen Delivery Method Sepsis Recent Fever Within 48 Hours Sepsis New/Unexplained Change in Mental Status Sepsis Action Taken by Nursing Laboratory Data Result diagrams: 03/23/21 11:31 03/23/21 11:31 Lab Results 03/23/21 03/23/21 03/23/21 Range/Units 11:31 11:31 11:31 WBC 8.28 (4.8-10.8) K/uL RBC 3.79 L (4.7-6.1) M/uL Hgb 10.8 L (14.0-18.0) g/dL Hct 33.0 L (42-52) % MCV 87.1 (80-100) fL MCH 28.5 (25-34) pg MCHC 32.7 (32-36) g/dL RDW Std Deviation 49.6 H (36.4-46.3) fL RDW Coeff of Katie 15.5 H (11.5-14.5) % Plt Count 262 (130-400) K/uL MPV 9.3 (7.4-10.4) fL Immature Gran % (Auto) 0.2 % Neut % (Auto) 71.6 % Lymph % (Auto) 19.8 % [place] % (Auto) 7.9 % Eos % (Auto) 0.4 % Baso % (Auto) 0.1 % Neut # (Auto) 5.93 (1.4-6.5) K/uL Lymph # (Auto) 1.64 (1.2-3.4) K/uL [place] # (Auto) 0.65 H (0.11-0.59) K/uL Eos # (Auto) 0.03 (0-0.5) K/uL Baso # (Auto) 0.01 (0-0.2) K/uL Immature Gran # (Auto) 0.02 (0.00-0.02) K/uL PT 32.6 H (9.0-12.0) Seconds INR 3.6 H (0.9-1.1) APTT 41.9 H (21.0-31.0) Seconds PTT Ratio 1.6 Sodium (136-145) mmol/L Potassium (3.5-5.1) mmol/L Chloride (98-107) mmol/L Carbon Dioxide (21-32) mmol/L Anion Gap (3-11) BUN (7-18) mg/dl Creatinine (0.6-1.4) mg/dl Est Cr Clr Drug Dosing ml/min Est GFR ( Amer) ml/min Est GFR (Non-Af Amer) ml/min BUN/Creatinine Ratio (10-20) Glucose (70-99) mg/dl Calcium (8.5-10.1) mg/dl Total Bilirubin (0.2-1) mg/dl AST (15-37) U/L ALT (12-78) U/L Alkaline Phosphatase (45-117) U/L Troponin I (0-0.045) ng/ml Total Protein (6.4-8.2) gm/dl Albumin (3.4-5.0) gm/dl Globulin (2.5-4.0) gm/dl Albumin/Globulin Ratio (0.9-2) COVID-19 Eval Order SARS-CoV-2 (PCR) (Negative) Blood Type A Positive Blood Type Recheck Antibody Screen NEGATIVE Crossmatch See Detail 03/23/21 03/23/21 03/23/21 Range/Units 11:31 11:55 11:55 WBC (4.8-10.8) K/uL RBC (4.7-6.1) M/uL Hgb (14.0-18.0) g/dL Hct (42-52) % MCV (80-100) fL MCH (25-34) pg MCHC (32-36) g/dL RDW Std Deviation (36.4-46.3) fL RDW Coeff of Katie (11.5-14.5) % Plt Count (130-400) K/uL MPV (7.4-10.4) fL Immature Gran % (Auto) % Neut % (Auto) % Lymph % (Auto) % [place] % (Auto) % Eos % (Auto) % Baso % (Auto) % Neut # (Auto) (1.4-6.5) K/uL Lymph # (Auto) (1.2-3.4) K/uL [place] # (Auto) (0.11-0.59) K/uL Eos # (Auto) (0-0.5) K/uL Baso # (Auto) (0-0.2) K/uL Immature Gran # (Auto) (0.00-0.02) K/uL PT (9.0-12.0) Seconds INR (0.9-1.1) APTT (21.0-31.0) Seconds PTT Ratio Sodium 137 (136-145) mmol/L Potassium 4.2 (3.5-5.1) mmol/L Chloride 110 H (98-107) mmol/L Carbon Dioxide 22 (21-32) mmol/L Anion Gap 5.0 (3-11) BUN 23 H (7-18) mg/dl Creatinine 0.78 (0.6-1.4) mg/dl Est Cr Clr Drug Dosing 83.2 ml/min Est GFR ( Amer) 101.6 ml/min Est GFR (Non-Af Amer) 87.7 ml/min BUN/Creatinine Ratio 30.0 H (10-20) Glucose 169 H (70-99) mg/dl Calcium 9.5 (8.5-10.1) mg/dl Total Bilirubin 0.6 (0.2-1) mg/dl AST 12 L (15-37) U/L ALT 19 (12-78) U/L Alkaline Phosphatase 51 (45-117) U/L Troponin I < 0.015 (0-0.045) ng/ml Total Protein 5.9 L (6.4-8.2) gm/dl Albumin 3.0 L (3.4-5.0) gm/dl Globulin 2.9 (2.5-4.0) gm/dl Albumin/Globulin Ratio 1.0 (0.9-2) COVID-19 Eval Order Covid19 at [facility] SARS-CoV-2 (PCR) NEGATIVE (Negative) Blood Type Blood Type Recheck Antibody Screen Crossmatch 03/23/21 Range/Units 13:05 WBC (4.8-10.8) K/uL RBC (4.7-6.1) M/uL Hgb (14.0-18.0) g/dL Hct (42-52) % MCV (80-100) fL MCH (25-34) pg MCHC (32-36) g/dL RDW Std Deviation (36.4-46.3) fL RDW Coeff of Katie (11.5-14.5) % Plt Count (130-400) K/uL MPV (7.4-10.4) fL Immature Gran % (Auto) % Neut % (Auto) % Lymph % (Auto) % [place] % (Auto) % Eos % (Auto) % Baso % (Auto) % Neut # (Auto) (1.4-6.5) K/uL Lymph # (Auto) (1.2-3.4) K/uL [place] # (Auto) (0.11-0.59) K/uL Eos # (Auto) (0-0.5) K/uL Baso # (Auto) (0-0.2) K/uL Immature Gran # (Auto) (0.00-0.02) K/uL PT (9.0-12.0) Seconds INR (0.9-1.1) APTT (21.0-31.0) Seconds PTT Ratio Sodium (136-145) mmol/L Potassium (3.5-5.1) mmol/L Chloride (98-107) mmol/L Carbon Dioxide (21-32) mmol/L Anion Gap (3-11) BUN (7-18) mg/dl Creatinine (0.6-1.4) mg/dl Est Cr Clr Drug Dosing ml/min Est GFR ( Amer) ml/min Est GFR (Non-Af Amer) ml/min BUN/Creatinine Ratio (10-20) Glucose (70-99) mg/dl Calcium (8.5-10.1) mg/dl Total Bilirubin (0.2-1) mg/dl AST (15-37) U/L ALT (12-78) U/L Alkaline Phosphatase (45-117) U/L Troponin I (0-0.045) ng/ml Total Protein (6.4-8.2) gm/dl Albumin (3.4-5.0) gm/dl Globulin (2.5-4.0) gm/dl Albumin/Globulin Ratio (0.9-2) COVID-19 Eval Order SARS-CoV-2 (PCR) (Negative) Blood Type Blood Type Recheck A Positive Antibody Screen Crossmatch Administered Medications Lactated Ringer's (Lr) 1,000 mls @ 125 mls/hr IV .Q8H FELIPE Stop: 03/24/21 16:15 Last Admin: 03/23/21 16:27 Dose: 125 mls/hr Documented by: [id number] Discontinued Medications Sodium Chloride (Nss 1000ml) 2,000 mls @ 999 mls/hr IV .Q2H1M ONE Stop: 03/23/21 13:43 Last Infusion: 03/23/21 14:40 Dose: 0 mls/hr Documented by: [id number] Admin: 03/23/21 11:51 Dose: 999 mls/hr Documented by: [id number] Phytonadione 10 mg/ Sodium (Chloride) 51 mls @ 102 mls/hr IV ONE ONE Stop: 03/23/21 12:55 Last Infusion: 03/23/21 14:40 Dose: 0 mls/hr Documented by: [id number] Admin: 03/23/21 13:06 Dose: 102 mls/hr Documented by: [id number] Prothrombin Complex Concent ( (Human) 2,000 units/ Syringe) 80 mls @ 10 mls/min IV TODAY@1228 FELIPE; Protocol Stop: 03/23/21 15:00 Last Admin: 03/23/21 13:04 Dose: 10 mls/min Documented by: [id number] Piperacillin Sod/Tazobactam (Sod 4.5 gm/ Dextrose) 120 mls @ 200 mls/hr IV NOW ONE; Protocol Stop: 03/23/21 14:07 Last Admin: 03/23/21 14:13 Dose: Not Given Documented by: [id number] Lactated Ringer's (Lr) 1,000 mls @ 999 mls/hr IV .Q1H1M ONE Stop: 03/23/21 16:05 Last Admin: 03/23/21 16:19 Dose: 999 mls/hr Documented by: [id number] Ioversol (Optiray 320 100ml) 94 ml IV ONCE ONE Stop: 03/23/21 12:52 Last Admin: 03/23/21 12:52 Dose: 94 ml Documented by: [id number] Piperacillin Sod/Tazobactam Sod (Piperacillin/Tazobactam 4.5 Gm/120ml D5w) Confirm Administered Dose 4.5 gm IV .STK-MED ONE Stop: 03/23/21 13:39 Last Admin: 03/23/21 13:55 Dose: 4.5 gm Documented by: [id number] Imaging Data Radiologist's Impression: Abdomen/Pelvis CT 03/23/21 11:24 CT abd pelvis IV con only CLINICAL HISTORY: abd pain COMPARISON STUDY: June 01, 2019 TECHNIQUE: A dose lowering technique was utilized adhering to the principles of ALARA. CT DOSE: 670.77 mGy.cm FINDINGS: Lower chest: Mild atelectasis is seen at dependent portions of bilateral lower lobes. Mild pericardial effusion, slightly worsened since prior.. Liver: The contrast-enhanced liver is normal in size, contour, and attenuation. There is no intrahepatic biliary ductal dilatation. The hepatic veins and portal veins are patent. Gallbladder: Is surgically absent. Prominent common bile duct measuring up to 11 mm is unchanged since prior. Spleen: Normal in size and attenuation. Pancreas: Is atrophic. Interval development of ill-defined hypoattenuating lesion within pancreatic body (3/127) which is abutting branch of the splenic artery (3/126) and splenic vein (3/138). These findings are better visualized on sagittal reconstruction, image 274 out of 513. Interval enlargement of the hypoattenuating lesion within pancreatic tail, now measuring 1.5 x 1.6 cm in size (3/134), was measured 0.7 cm during prior study performed in June 01, 2019. Adrenal glands: Left adrenal gland is unremarkable. Partial atrophy and calcification of the right adrenal gland is again seen and unchanged since prior. Kidneys: There is symmetric renal cortical enhancement. The kidneys are normal in size without hydronephrosis.Nonobstructive 5 mm calculus is seen within right renal pelvis, not significantly changed since prior. Multiple cystic lesions within the right and left renal parenchyma are seen, not significantly changed since prior. Pelvic viscera: Urinary bladder is adequately filled with urine. Prostate gland is slightly enlarged. Bilateral fat-containing inguinal hernias are seen. Bowel: Small hiatal hernia is seen. Bowel loops are nondilated. Appendix is not well seen. Diverticulosis of sigmoid and descending colon is seen. Questionable area of slightly increased surrounding fat stranding at the focal loop of the descending colon (3/236) might represent developing diverticulitis. Peritoneum: There is no intraperitoneal free air or abdominal ascites. Vasculature: The abdominal aorta is normal in course and caliber. Adenopathy: Stable 2.1 cm retroperitoneal lymph node, unchanged since prior study (3/234. Also 1.3 cm paraesophageal lymph node (3/15) is unchanged since prior. Skeletal structures: Osteopenia. Multilevel degenerative changes of the spine, most severe at the L2-L3. No definite destructive osseous lesions are seen. IMPRESSION: 1. Diverticulosis of descending and sigmoid colon. Focal area of fat stranding surrounding portion of descending colon might represent developing diverticulitis. 2. Interval development of hypoattenuating lesion within body of the pancreas highly concerning for neoplastic process/adenocarcinoma. Further evaluation by oncology is recommended. 3. Interval enlargement of the cystic lesion within pancreatic tail since prior study. Findings are concerning for cystic neoplasm. Further evaluation with MRI of the abdomen/MRCP is suggested. 4. Stable lymphadenopathy as detailed above. 5. Slightly worsened pericardial effusion. ACT 112: Negative or not required by law. The above report was generated using voice recognition software. It may contain grammatical, syntax or spelling errors. Electronically signed by: Elsy Chavez DO 03/23/2021 1:23 PM Discharge Plan Visit Data Chief Complaint: GI Bleed Stated Complaint: GI BLEED/DIARRHEA B/P 100/54 ED Provider: Jayro Elias Discharge Problem: Acute GI bleeding, Atrial fibrillation, Anemia, Diverticulitis Patient Disposition: Admitted As Inpatient Discharge Instructions Interventions: ED Discharge Assessment Last Done: 03/23/21 14:43 Discharge Problem: Atrial fibrillation Qualifiers: Atrial fibrillation type: unspecified Qualified Code(s): I48.91 - Unspecified atrial fibrillation Anemia Qualifiers: Anemia type: unspecified type Qualified Code(s): D64.9 - Anemia, unspecified
[2021-03-23 11:49] LABS: Basophils # (auto) 0.01 K/uL (0-0.2); Basophils % (auto) 0.1 %; Eosinophils # (auto) 0.03 K/uL (0-0.5); Eosinophils % (auto) 0.4 %; Hemoglobin 10.8 g/dL (14.0-18.0); Immature Granulocytes # (auto) 0.02 K/uL (0.00-0.02); Immature Granulocytes % (auto) 0.2 %; Lymphocytes # (auto) 1.64 K/uL (1.2-3.4); Lymphocytes % (auto) 19.8 %; Mean Corpuscular Hemoglobin 28.5 pg (25-34); Mean Corpuscular Hgb Conc 32.7 g/dL (32-36); Mean Corpuscular Volume 87.1 fL (80-100); Mean Platelet Volume 9.3 fL (7.4-10.4); Monocytes # (auto) 0.65 K/uL (0.11-0.59); Monocytes % (auto) 7.9 %; Neutrophils # (auto) 5.93 K/uL (1.4-6.5); Neutrophils % (auto) 71.6 %; Platelet Count 262 K/uL (130-400); RDW Coefficient of Variation 15.5 % (11.5-14.5); RDW Standard Deviation 49.6 fL (36.4-46.3); Red Blood Count 3.79 M/uL (4.7-6.1); White Blood Count 8.28 K/uL (4.8-10.8)
[2021-03-23 12:08] LABS: INR 3.6 (0.9-1.1); Partial Thromboplastin Ratio 1.6; Partial Thromboplastin Time 41.9 Seconds (21.0-31.0); Prothrombin Time 32.6 Seconds (9.0-12.0)
[2021-03-23 12:09] LABS: Alanine Aminotransferase 19 U/L (12-78); Aspartate Aminotransferase 12 U/L (15-37); Blood Urea Nitrogen 23 mg/dl (7-18); Calcium 9.5 mg/dl (8.5-10.1); Carbon Dioxide 22 mmol/L (21-32); Chloride 110 mmol/L (98-107); Creatinine Clr Calc Pharmacy 83.2 ml/min; Est GFR (African American) 101.6 ml/min; Est GFR (Non-African American) 87.7 ml/min; Glucose 169 mg/dl (70-99); Potassium 4.2 mmol/L (3.5-5.1); Sodium 137 mmol/L (136-145)
[2021-03-23 12:13] LABS: Alkaline Phosphatase 51 U/L (45-117); Bilirubin,Total 0.6 mg/dl (0.2-1); Globulin 2.9 gm/dl (2.5-4.0); Total Protein 5.9 gm/dl (6.4-8.2); Troponin I < 0.015 ng/ml (0-0.045)
[2021-03-23] MEDS ORDERED: PHYTONADIONE 10 MG in SODIUM CHLORIDE 0.9% 50 ML IV ONE (12:26)
[2021-03-23] MEDS ORDERED: PROTHROMBIN COMP CONC- KCENTRA 2,000 UNITS in SYRINGE 0 ML IV SCH (12:28)
[2021-03-23] MEDS ORDERED: OPTIRAY 320 100ml IV ONE (12:51)
--- NOTE | 2021-03-23 13:25 | CT Scan Report ---
CT abd pelvis IV con only CLINICAL HISTORY: abd pain COMPARISON STUDY: June 01, 2019 TECHNIQUE: A dose lowering technique was utilized adhering to the principles of ALARA. CT DOSE: 670.77 mGy.cm FINDINGS: Lower chest: Mild atelectasis is seen at dependent portions of bilateral lower lobes. Mild pericardia l effusion, slightly worsened since prior.. Liver: The contrast-enhanced liver is normal in size, contour, and attenuation. There is no intrahepa tic biliary ductal dilatation. The hepatic veins and portal veins are patent. Gallbladder: Is surgically absent. Prominent common bile duct measuring up to 11 mm is unchanged sinc e prior. Spleen: Normal in size and attenuation. Pancreas: Is atrophic. Interval development of ill-defined hypoattenuating lesion within pancreatic b michell (3/127) which is abutting branch of the splenic artery (3/126) and splenic vein (3/138). These fi ndings are better visualized on sagittal reconstruction, image 274 out of 513. Interval enlargement of the hypoattenuating lesion within pancreatic tail, now measuring 1.5 x 1.6 cm in size (3/134), was measured 0.7 cm during prior study performed in June 01, 2019. Adrenal glands: Left adrenal gland is unremarkable. Partial atrophy and calcification of the right ad renal gland is again seen and unchanged since prior. Kidneys: There is symmetric renal cortical enhancement. The kidneys are normal in size without hydron ephrosis.Nonobstructive 5 mm calculus is seen within right renal pelvis, not significantly changed si nce prior. Multiple cystic lesions within the right and left renal parenchyma are seen, not significa ntly changed since prior. Pelvic viscera: Urinary bladder is adequately filled with urine. Prostate gland is slightly enlarged. Bilateral fat-containing inguinal hernias are seen. Bowel: Small hiatal hernia is seen. Bowel loops are nondilated. Appendix is not well seen. Diverticul osis of sigmoid and descending colon is seen. Questionable area of slightly increased surrounding fat stranding at the focal loop of the descending colon (3/236) might represent developing diverticuliti s. Peritoneum: There is no intraperitoneal free air or abdominal ascites. Vasculature: The abdominal aorta is normal in course and caliber. Adenopathy: Stable 2.1 cm retroperitoneal lymph node, unchanged since prior study (3/234. Also 1.3 cm paraesophageal lymph node (3/15) is unchanged since prior. Skeletal structures: Osteopenia. Multilevel degenerative changes of the spine, most severe at the L2- L3. No definite destructive osseous lesions are seen. IMPRESSION: 1. Diverticulosis of descending and sigmoid colon. Focal area of fat stranding surrounding portion o f descending colon might represent developing diverticulitis. 2. Interval development of hypoattenuating lesion within body of the pancreas highly concerning for neoplastic process/adenocarcinoma. Further evaluation by oncology is recommended. 3. Interval enlargement of the cystic lesion within pancreatic tail since prior study. Findings are concerning for cystic neoplasm. Further evaluation with MRI of the abdomen/MRCP is suggested. 4. Stable lymphadenopathy as detailed above. 5. Slightly worsened pericardial effusion. ACT 112: Negative or not required by law. The above report was generated using voice recognition software. It may contain grammatical, syntax o r spelling errors. Electronically signed by: Elsy Chavez DO 03/23/2021 1:23 PM
[2021-03-23] MEDS ORDERED: PIPERACILLIN/TAZOBACTAM 4.5 GM in DEXTROSE 5% 100 ML IV ONE (13:32)
[2021-03-23] MEDS ORDERED: PIPERACILL/TAZOBAC CONSULT ACTIVE PRN (13:32)
[2021-03-23] MEDS ORDERED: PIPERACILLIN/TAZOBACTAM 4.5 GM/120ML D5W IV ONE (13:38)
--- NOTE | 2021-03-23 13:44 | History & Physical Report ---
Date of Service March 23, 2021 Assessment & Plan (1) Acute GI bleeding: Plan: -Admit to tele -Trend H&H, currently 10.4, baseline appears to be around 14-15, multiple melanotic BMs -Hold Coumadin, INR was 3.6 on admission, given 10 mg IV vitamin K -Trend INR daily -Protonix 40 mg IV twice daily -CT abdomen reviewed showing possible diverticulitis -Consult gastroenterology, Dr. Puckett, for possible scope - had last cscope about 1 year ago. -Vitals are stable currently, initially was hypotensive 88/58, now improved s/p administration of IV fluids (2) Coronary artery disease: Plan: -Follows with Dr. Dickey as an outpatient -Hold Bumex 0.5 mg daily, spironolactone 37.5 mg daily -Hold metoprolol succinate 100 mg for now (3) Chronic diastolic heart failure: Plan: - Hx of such, monitor volume status, currently hypovolemic from acute blood loss, fluids as above - Last echo with 01/13/2021 showing moderate concentric LVH, abnormal septal motion consistent with LBBB, normal ventricular systolic function with an EF 60- 65%, trace mitral regurg, mild tricuspid regurg (4) Atrial fibrillation: Plan: -EKG reviewed - was in afib with rvr with HR in low 100s earlier today, now improved, HR in 80s. - Holding coumadin - Rate control with metoprolol, holding for now due to GIB, rate improved with volume resuscitation. (5) Hypertension: Plan: -Monitor blood pressure, IVFs as above, holding antihypertensives (6) Diabetes mellitus, type II: Plan: -Last A1c was 7.8 on 10/01/2020 -ISS with Accu-Cheks ACHS -Hold semaglutide 14 mg p.o. daily (7) SRAVANTHI (obstructive sleep apnea): Plan: -Continue CPAP, bringing in from home DVT PPx - teds, scds, holding Coumadin secondary to GI bleed as above CODE: Full code Dispo: From home, likely to remain in the hospital x 1-2 days History of Present Illness Primary Care Provider: Roscoe Kaminski MD This is a 76-year-old male with PMHx of CAD, chronic diastolic heart failure, paroxysmal A. fib on Coumadin, HTN, HLD, DM type II, COPD, GERD, SRAVANTHI on CPAP who presents with acute onset of GI bleeding which began yesterday. He reports his bleeding started at 3:30 in the morning and lasted throughout the day nearly once every hour with loose stools and dark red blood with some clots. He reports there is bright red blood on paper when he wipes. His who is a nurse, present at bedside, reports that she checked him out approximately 1 week ago and he did have a small external hemorrhoid however it was not irritated or bleeding then. He admits to lightheadedness and dizziness today, as well as paleness in his face per . He was feeling weak and fatigued and so his brought him to the ER. His last colonoscopy was approximately 1 year ago per and was normal. This morning he took all of his antihypertensive medications and last night took Coumadin. Pt wears CPAP HS and has O2 at home if needed at 2 L, and wears it occasionally. He has been working with pulmonology to get post nasal drip to dry out, and has been taking Pseudafed and other nasal spray which have been working for his symptoms. Initially the patient was hypotensive in the ER with BP of 88/58, and was volume resuscitated Hemoglobin currently 10.8, baseline of 14, BUN elevated at 23, INR was 3.6 on admission and was reversed with 10 mg IV vitamin K. Allergies Allergy/AdvReac Type Severity Reaction Status Date / Time Sulfa (Sulfonamide Allergy Intermediate HIVES Verified 03/23/21 14:07 Antibiotics) Home Medications Medication Instructions Recorded Confirmed Type allopurinol 100 mg tablet 100 mg PO BID tab 03/08/19 03/23/21 History (Zyloprim) bumetanide 1 mg tablet 0.5 mg PO QAM tab 03/08/19 03/23/21 History calcium carbonate 600 mg calcium 600 mg PO BID tab 03/08/19 03/23/21 History (1,500 mg) tablet (Calcium) magnesium oxide 400 mg (241.3 mg 400 mg PO HS tab 03/08/19 03/23/21 History magnesium) tablet (MagOx) omeprazole 20 mg capsule,delayed 20 mg PO BID cap 03/08/19 03/23/21 History release rosuvastatin 20 mg tablet (Crestor) 20 mg PO HS #30 tab 03/08/19 03/23/21 History hcrvjidagtq-eglaavsnr-acw C-Mn 2 cap PO HS 05/31/19 03/23/21 History capsule (Glucosamine-Chondroitin Complx) omega 4-qpd-zzi-fish oil 1,000 mg 1 cap PO BID 05/31/19 03/23/21 History (120 mg-180 mg) capsule (Fish Oil) tobramycin 0.3 % eye drops (Tobrex) 4 drp OPHTHALMIC (EYE) UD PRN 05/31/19 03/23/21 History spironolactone 25 mg tablet 12.5 mg PO QAM 06/26/19 03/23/21 History (Aldactone) sildenafil (pulm.hypertension) 20 40 - 60 mg PO DIRECTED PRN 01/13/20 03/23/21 History mg tablet (Revatio) warfarin 5 mg tablet (Jantoven) See Rx Instructions .ROUTE .COMPLEX 01/13/20 03/23/21 History semaglutide 14 mg tablet (Rybelsus) 14 mg PO DAILYBB 04/16/20 03/23/21 History desonide 0.05 % topical ointment 1 applic TOPICAL .COMPLEX PRN #15 g 09/17/20 03/23/21 Rx chlorpheniramine maleate 4 mg 4 mg PO Q12H 30 Days #60 tab 01/27/21 03/23/21 Rx tablet (Allergy Relief (chlorpheniramine)) fluticasone propionate 50 1 spray INTRANASAL BID #18.2 ml 01/27/21 03/23/21 Rx mcg/actuation nasal spray,suspension (Flonase Allergy Relief) pseudoephedrine HCl 120 mg 120 mg PO BID 30 Days #60 tab 01/27/21 03/23/21 Rx tablet,extended release (Sudafed 12 Hour) empagliflozin 25 mg tablet 25 mg PO QAM 03/23/21 03/23/21 History (Jardiance) metformin 500 mg tablet,extended 1,000 mg PO BID 03/23/21 03/23/21 History release 24 hr metoprolol succinate 100 mg 100 mg PO QAM 03/23/21 03/23/21 History tablet,extended release 24 hr (Toprol XL) mupirocin 2 % topical ointment 1 applic TOP BID PRN 03/23/21 03/23/21 History (Centany) peg 400-propylene glycol 0.4 %-0.3 1 drp OPHTHALMIC (EYE) 5XD PRN 03/23/21 03/23/21 History % eye drops (Systane (propylene glycol)) sodium chloride 0.65 % nasal spray 2 spray INTRANASAL QID PRN 03/23/21 03/23/21 History aerosol (Saline Mist) tamsulosin 0.4 mg capsule (Flomax) 0.4 mg PO QAM 03/23/21 03/23/21 History Past Med/Surg History Medical History Arthralgia of right wrist Atrial fibrillation on warfarin Cervical pain Cervical radicular pain Chest wall pain Chronic cough Chronic diastolic heart failure echo 05/31/19 mod concentric LVH LVEF 55-60% grade II diastolic dysfunction Coronary artery disease cath 06/04/19 50% mid RCA, high grade stenosis posterior lateral branch, unsuccessful PCI Diabetes mellitus type 2 with complications Diabetes mellitus, type II Diverticular disease Do not resuscitate status GERD (gastroesophageal reflux disease) Gout Hearing deficit History of colon polyps History of SCC (squamous cell carcinoma) of skin Hypertension Intercostal neuralgia Left ankle pain Left tibialis posterior tendonitis Myofascial pain On anticoagulant therapy warfarin daily On home oxygen therapy 2L N/C prn Osteoarthritis Restrictive airway disease Shoulder pain Sleep apnea cpap Tracheobronchopathia-osteochondroplastica Surgical History History of appendectomy History of bilateral cataract extraction History of bronchoscopy History of cardiac cath (~05/2019) x2--2003 ([facility]) and 06/04/19 ([facility]no stents--follows with Dr. Dickey History of carpal tunnel release of both wrists History of cholecystectomy History of colonoscopy with polypectomy History of esophagogastroduodenoscopy (EGD) History of total left knee replacement (TKR) History of total right knee replacement (TKR) (~2011) "R total knee arthroplasty in 2011" Hx of arthroscopic knee surgery (~2001) "bilat by Dr. Thomas in 2001" Family History Sister Family hx of colon cancer Brother Family history of esophageal cancer Other Heart disease Lung disease No family history of adverse response to anesthesia Social History Smoking Status: Former smoker Tobacco Type: Cigarettes Second Hand Exposure: No; Hx Alcohol Use: No Hx Substance Use: No Preferred Language: Maltese Communication Ability: Effective Visual Impairment: No Limitations Hearing Ability: Normal [employer] Hand[employer] Supervisor Required: No Beliefs That Will Affect Care: None Current Living Situation: Spouse Other Information That Helps Us Care for You: No Feels Safe at Home: Yes Safety Concerns: Feels Safe At This Time Assistive Devices: CPAP Review of Systems Review of Systems: Constitutional: No fever, sweats or chills Eyes: No diplopia, no worsening or blurred vision ENT: normal hearing, no trouble swallowing, + dry mouth from medications Respiratory: No cough, sputum, dyspnea at rest or on exertion Cardiovascular: No chest pain, tightness or palpitations Abdomen: As per HPI, no pain, nausea, vomiting, + diarrhea with blood, no constipation Musculoskeletal: No joint pain, calf pain, swelling Neurologic: No weakness, numbness/tingling, or balance problems Psychiatric: No anxiety or depression Skin: No rash or itch Physical Exam Physical Exam: General: awake, alert, no apparent distress, + pallor Head: Normocephalic, atraumatic ENT: PERRL, EOMI, no pharyngeal exudate, mucous membranes slightly dry Chest: Clear to auscultation, on room air, no adventitious breath sounds Cardiac: Irregularly irregular with heart rate in the 90s at bedside, no murmur, no JVD, normal peripheral pulses, good capillary refill Abdominal: NABS x 4 quadrants, soft, nondistended, + slightly tender to palpation in suprapubic region, no rebound or guarding Extremities: Normal inspection, no peripheral edema or erythema, calfs nontender to palpation Psych: Normal mood and affect Neuro: AAO x 3, strength intact bilaterally and rated 5/5, no motor deficits, speech is clear, no peripheral sensory deficits Results & Data Results & Data ([facility]) Vital Signs (Past 12 Hours) Vital Signs Temp Pulse Resp BP Pulse Ox 03/23/21 13:00 86 18 120/77 03/23/21 12:30 93 H 23 126/72 03/23/21 12:00 96 H 20 112/63 03/23/21 11:46 99 H 17 102/60 03/23/21 11:06 36.5 C 82 18 88/58 L 99 Diagnostic Findings Abdomen/Pelvis CT 03/23/21 11:24 CT abd pelvis IV con only CLINICAL HISTORY: abd pain COMPARISON STUDY: June 01, 2019 TECHNIQUE: A dose lowering technique was utilized adhering to the principles of ALARA. CT DOSE: 670.77 mGy.cm FINDINGS: Lower chest: Mild atelectasis is seen at dependent portions of bilateral lower lobes. Mild pericardial effusion, slightly worsened since prior.. Liver: The contrast-enhanced liver is normal in size, contour, and attenuation. There is no intrahepatic biliary ductal dilatation. The hepatic veins and portal veins are patent. Gallbladder: Is surgically absent. Prominent common bile duct measuring up to 11 mm is unchanged since prior. Spleen: Normal in size and attenuation. Pancreas: Is atrophic. Interval development of ill-defined hypoattenuating lesion within pancreatic body (3/127) which is abutting branch of the splenic artery (3/126) and splenic vein (3/138). These findings are better visualized on sagittal reconstruction, image 274 out of 513. Interval enlargement of the hypoattenuating lesion within pancreatic tail, now measuring 1.5 x 1.6 cm in size (3/134), was measured 0.7 cm during prior study performed in June 01, 2019. Adrenal glands: Left adrenal gland is unremarkable. Partial atrophy and calcification of the right adrenal gland is again seen and unchanged since prior. Kidneys: There is symmetric renal cortical enhancement. The kidneys are normal in size without hydronephrosis.Nonobstructive 5 mm calculus is seen within right renal pelvis, not significantly changed since prior. Multiple cystic lesions within the right and left renal parenchyma are seen, not significantly changed since prior. Pelvic viscera: Urinary bladder is adequately filled with urine. Prostate gland is slightly enlarged. Bilateral fat-containing inguinal hernias are seen. Bowel: Small hiatal hernia is seen. Bowel loops are nondilated. Appendix is not well seen. Diverticulosis of sigmoid and descending colon is seen. Questionable area of slightly increased surrounding fat stranding at the focal loop of the descending colon (3/236) might represent developing diverticulitis. Peritoneum: There is no intraperitoneal free air or abdominal ascites. Vasculature: The abdominal aorta is normal in course and caliber. Adenopathy: Stable 2.1 cm retroperitoneal lymph node, unchanged since prior study (3/234. Also 1.3 cm paraesophageal lymph node (3/15) is unchanged since prior. Skeletal structures: Osteopenia. Multilevel degenerative changes of the spine, most severe at the L2-L3. No definite destructive osseous lesions are seen. IMPRESSION: 1. Diverticulosis of descending and sigmoid colon. Focal area of fat stranding surrounding portion of descending colon might represent developing diverticulitis. 2. Interval development of hypoattenuating lesion within body of the pancreas highly concerning for neoplastic process/adenocarcinoma. Further evaluation by oncology is recommended. 3. Interval enlargement of the cystic lesion within pancreatic tail since prior study. Findings are concerning for cystic neoplasm. Further evaluation with MRI of the abdomen/MRCP is suggested. 4. Stable lymphadenopathy as detailed above. 5. Slightly worsened pericardial effusion. ACT 112: Negative or not required by law. The above report was generated using voice recognition software. It may contain grammatical, syntax or spelling errors. Electronically signed by: Elsy Chavez DO 03/23/2021 1:23 PM ECG Additional Comments: 23-MAR-2021 11:39:21 [facility]-EDSTAT ROUTINE RETRIEVAL Atrial fibrillation with rapid ventricular response Left axis deviation Left bundle branch block Abnormal ECG When compared with ECG of 05-FEB-2021 11:22, No significant change was found 25mm/s 10mm/mV 150Hz 9.0.9 12SL 241 ELIE: 13 Unconfirmed Vent. rate 103 BPM MI interval * ms QRS duration 152 ms QT/QTc 342/448 ms Code Status & VTE Plan Code Status Full code Supervising Physician Co-Signing Physician Notes Pt is a 76 y/o M with hx of Afib on coumadin admitted for BRBPR Exam: NAD Abd: ND, Soft, NT, normal BS Plan: GI bleeding with drop in hgb -Baseline hgb is 14-15 -INR is supratherapeutic s/p 10mg IV vit K -NPO, GI consult - hold coumadin tonight - Hold Metoprolol and HTN meds bc pt was hypotensive in the ER - C/w IV fluids
[2021-03-23] MEDS ORDERED: LACTATED RINGER'S 1,000 ML IV ONE (15:05)
[2021-03-23] MEDS ORDERED: ACETAMINOPHEN 325 MG TAB PO PRN (16:16)
[2021-03-23] MEDS ORDERED: GLUCAGON FOR INJ 1 MG VIAL SQ PRN (16:16)
[2021-03-23] MEDS ORDERED: NON-FORMULARY MEDICATION (Chlorpheniramine Maleate [Allergy Relief(Chlorpheniramn)] 4 mg t PO SCH (16:16)
[2021-03-23] MEDS ORDERED: GLUCOSE 10 TABS/TUBE PO PRN (16:16)
[2021-03-23] MEDS ORDERED: ONDANSETRON INJ 2 MG/ML 2 ML VIAL IV PRN (16:16)
[2021-03-23] MEDS ORDERED: SODIUM CHLORIDE 0.65% NA SOLN 45 ML (OCEAN) PRN (16:16)
[2021-03-23] MEDS ORDERED: DEXTROSE 50% 50 ML SYRINGE IV PRN (16:16)
[2021-03-23] MEDS ORDERED: TOBRAMYCIN SULF 0.3% OP SOLN 5 ML BTL OP PRN (16:16)
[2021-03-23] MEDS ORDERED: CARBOHYDRATES FOR HYPOGLYCEMIA PO PRN (16:16)
[2021-03-23] MEDS ORDERED: GLUCOSE 40% GEL 15 GM TUBE PO PRN (16:16)
[2021-03-23] MEDS: LACTATED RINGER'S 1,000 ML IV SCH (16:27)
[2021-03-23] MEDS ORDERED: ARTIFICIAL TEARS OP PRN (16:30)
[2021-03-23] MEDS ORDERED: LAVAGE SOLUTION 4000ML PO SCH (17:30)
[2021-03-23] MEDS: INSULIN ASPART 100 UNITS/ML 3 ML PEN SC SCH ×2 (17:32→21:22)
--- NOTE | 2021-03-23 18:30 | Electrocardiogram Report ---
Test Reason : Blood Pressure : / mmHG Vent. Rate : 103 BPM Atrial Rate : 097 BPM P-R Int : 000 ms QRS Dur : 152 ms QT Int : 342 ms P-R-T Axes : 000 -68 106 degrees QTc Int : 448 ms Atrial fibrillation with rapid ventricular response Left axis deviation Left bundle branch block Abnormal ECG When compared with ECG of 05-FEB-2021 11:22, No significant change was found Confirmed by Aris Lal ([id number]) on 03/23/2021 6:30:31 PM Referred By: Confirmed By:Gio Lal
[2021-03-23 18:38] LABS: Hematocrit (blood only) 29.6 % (42-52); Hemoglobin 9.5 g/dL (14.0-18.0)
[2021-03-23] MEDS ORDERED: PSEUDOEPHEDRINE HCL 120 MG PO SCH (21:00)
[2021-03-23] MEDS ORDERED: NON-FORMULARY MEDICATION (Omeprazole 20 mg capsule,delayed release(DR/EC)) PO SCH (21:00)
[2021-03-23] MEDS: MAGNESIUM OXIDE 400 MG TAB PO SCH (21:06)
[2021-03-23] MEDS: allopurinoL 100 MG TAB PO SCH (21:07)
[2021-03-23] MEDS: FLUTICASONE PROPIONATE NA SPR 16 GM BTL SCH (21:07)
[2021-03-23] MEDS: ROSUVASTATIN CALCIUM 20 MG TAB PO SCH (21:07)
[2021-03-23] MEDS: CALCIUM 600MG + VIT D 400 IU TAB PO SCH (21:07)
[2021-03-23] MEDS: PANTOprazole 40 MG in SYRINGE 0 ML IV SCH (21:23)
[2021-03-24] MEDS: LACTATED RINGER'S 1,000 ML IV SCH ×2 (00:05→08:12)
[2021-03-24 06:19] LABS: Hematocrit (blood only) 28.2 % (42-52); Hemoglobin 9.2 g/dL (14.0-18.0); Mean Corpuscular Hemoglobin 28.6 pg (25-34); Mean Corpuscular Hgb Conc 32.6 g/dL (32-36); Mean Corpuscular Volume 87.6 fL (80-100); Mean Platelet Volume 9.3 fL (7.4-10.4); Platelet Count 226 K/uL (130-400); RDW Coefficient of Variation 15.5 % (11.5-14.5); RDW Standard Deviation 48.9 fL (36.4-46.3); Red Blood Count 3.22 M/uL (4.7-6.1); White Blood Count 6.53 K/uL (4.8-10.8)
[2021-03-24 06:31] LABS: INR 1.3 (0.9-1.1)
[2021-03-24 06:55] LABS: Albumin Level 2.7 gm/dl (3.4-5.0); BUN Creatinine Ratio 22.8 (10-20); Calcium 8.9 mg/dl (8.5-10.1); Est GFR (African American) 106.9 ml/min; Est GFR (Non-African American) 92.2 ml/min; Magnesium 1.9 mg/dl (1.8-2.4); Potassium 4.4 mmol/L (3.5-5.1)
[2021-03-24 06:58] LABS: Albumin Globulin Ratio 1.1 (0.9-2); Bilirubin,Total 0.7 mg/dl (0.2-1); Globulin 2.5 gm/dl (2.5-4.0); Phosphorus 2.8 mg/dl (2.5-4.9); Total Protein 5.2 gm/dl (6.4-8.2)
[2021-03-24] MEDS: INSULIN ASPART 100 UNITS/ML 3 ML PEN SC SCH ×3 (07:18→16:40)
[2021-03-24 07:33] LABS: Estimated Average Glucose 183 mg/dl
[2021-03-24] MEDS: TAMSULOSIN HCL 0.4 MG CAP PO SCH (08:13)
[2021-03-24] MEDS: PANTOprazole 40 MG in SYRINGE 0 ML IV SCH ×2 (08:13→20:32)
[2021-03-24] MEDS: FLUTICASONE PROPIONATE NA SPR 16 GM BTL SCH ×2 (08:13→20:33)
[2021-03-24] MEDS: allopurinoL 100 MG TAB PO SCH ×2 (08:13→20:33)
[2021-03-24] MEDS: CALCIUM 600MG + VIT D 400 IU TAB PO SCH ×2 (08:13→20:34)
--- NOTE | 2021-03-24 09:26 | Gastrointestinal Consultation ---
Date of Consultation March 24, 2021 Assessment & Plan (1) Rectal bleeding: Most likely a diverticular bleed. Symptoms are not consistent with diverticulitis (no pain, fever or chills). Colonoscopy today. Keep NPO. Further recommendations to follow colonoscopy. I saw and evaluated the patient. We were consulted for evaluation of hematochezia that began suddenly yesterday morning. The patient did undergo a bowel preparation last evening and notes that the bleeding has ceased. He did have a prior colonoscopy but does not recall the results. Imaging does seem to indicate evidence of inflammatory changes within the sigmoid colon. Physical examination Elderly male, no obvious distress, no abdominal tenderness today Impression: Patient presenting with hematochezia, given history would wonder about a diverticular hemorrhage or perhaps ischemic colitis. We will proceed with colonoscopy today for further evaluation. We discussed risks and benefits of the procedure to include bleeding, infection, perforation and need for follow-up studies. History of Present Illness Reason for Consultation: Rectal bleeding Requesting Physician: Anna Cifuentes PA-C Attending Physician: London Frazier MD History of Present Illness Mr. Jackelin Lopez is a 76 yr old male pt of Dr. Kaminski with a hx of CAD, chronic diastolic heart failure, paroxysmal A. fib on Coumadin, HTN, HLD, DM type II, COPD, GERD, SRAVANTHI on CPAP. He experienced several episodes of painless bright red rectal bleeding starting at 3:30 AM yesterday, and presented to the ED later yesterday morning. He denies any fevers/chills sweats, nausea or vomiting. He felt a bit weak and dizzy yesterday, was mildly hypotensive soon after arrival but feels well this morning after IV fluid resuscitation, in fact, he is a bit hypertensive. On arrival, his Hb was 10.8, down from 15 in January and this morning, his Hb is 9.9. BUN 23->16 today. INR on arrival was 3.6, he received Vit K and INR this morning is 1.3. CT on arrival suggested diverticulitis but pt tells me that he had diverticulitis in the past and this was very different because this was not painful. He completed the colonoscopy prep. Recent BMs this morning are clear, no bleeding. Most recent colonoscopy by Dr. Sharif for f/u diverticulitis in Jun 2019: Multiple small-mouthed diverticula were found in the sigmoid colon and descending colon, otherwise normal. Most recent EGD in 2017 for dyspesia: normal. Allergies Allergy/AdvReac Type Severity Reaction Status Date / Time Sulfa (Sulfonamide Allergy Intermediate HIVES Verified 03/24/21 09:43 Antibiotics) Home Medications Medication Instructions Recorded Confirmed Type allopurinol 100 mg tablet 100 mg PO BID tab 03/08/19 03/23/21 History (Zyloprim) bumetanide 1 mg tablet 0.5 mg PO QAM tab 03/08/19 03/23/21 History calcium carbonate 600 mg calcium 600 mg PO BID tab 03/08/19 03/23/21 History (1,500 mg) tablet (Calcium) magnesium oxide 400 mg (241.3 mg 400 mg PO HS tab 03/08/19 03/23/21 History magnesium) tablet (MagOx) omeprazole 20 mg capsule,delayed 20 mg PO BID cap 03/08/19 03/23/21 History release rosuvastatin 20 mg tablet (Crestor) 20 mg PO HS #30 tab 03/08/19 03/23/21 History fzowgodaurd-nhkufpjlx-fpt C-Mn 2 cap PO HS 05/31/19 03/23/21 History capsule (Glucosamine-Chondroitin Complx) omega 3-fcm-xxi-fish oil 1,000 mg 1 cap PO BID 05/31/19 03/23/21 History (120 mg-180 mg) capsule (Fish Oil) tobramycin 0.3 % eye drops (Tobrex) 4 drp OPHTHALMIC (EYE) UD PRN 05/31/19 03/23/21 History spironolactone 25 mg tablet 12.5 mg PO QAM 06/26/19 03/23/21 History (Aldactone) sildenafil (pulm.hypertension) 20 40 - 60 mg PO DIRECTED PRN 01/13/20 03/23/21 History mg tablet (Revatio) warfarin 5 mg tablet (Jantoven) See Rx Instructions .ROUTE .COMPLEX 01/13/20 03/23/21 History semaglutide 14 mg tablet (Rybelsus) 14 mg PO DAILYBB 04/16/20 03/23/21 History desonide 0.05 % topical ointment 1 applic TOPICAL .COMPLEX PRN #15 g 09/17/20 03/23/21 Rx chlorpheniramine maleate 4 mg 4 mg PO Q12H 30 Days #60 tab 01/27/21 03/23/21 Rx tablet (Allergy Relief (chlorpheniramine)) fluticasone propionate 50 1 spray INTRANASAL BID #18.2 ml 01/27/21 03/23/21 Rx mcg/actuation nasal spray,suspension (Flonase Allergy Relief) pseudoephedrine HCl 120 mg 120 mg PO BID 30 Days #60 tab 01/27/21 03/23/21 Rx tablet,extended release (Sudafed 12 Hour) empagliflozin 25 mg tablet 25 mg PO QAM 03/23/21 03/23/21 History (Jardiance) metformin 500 mg tablet,extended 1,000 mg PO BID 03/23/21 03/23/21 History release 24 hr metoprolol succinate 100 mg 100 mg PO QAM 03/23/21 03/23/21 History tablet,extended release 24 hr (Toprol XL) mupirocin 2 % topical ointment 1 applic TOP BID PRN 03/23/21 03/23/21 History (Centany) peg 400-propylene glycol 0.4 %-0.3 1 drp OPHTHALMIC (EYE) 5XD PRN 03/23/21 03/23/21 History % eye drops (Systane (propylene glycol)) sodium chloride 0.65 % nasal spray 2 spray INTRANASAL QID PRN 03/23/21 03/23/21 History aerosol (Saline Mist) tamsulosin 0.4 mg capsule (Flomax) 0.4 mg PO QAM 03/23/21 03/23/21 History Patient History Medical History Arthralgia of right wrist Atrial fibrillation on warfarin Cervical pain Cervical radicular pain Chest wall pain Chronic cough Chronic diastolic heart failure echo 05/31/19 mod concentric LVH LVEF 55-60% grade II diastolic dysfunction Coronary artery disease cath 06/04/19 50% mid RCA, high grade stenosis posterior lateral branch, unsuccessful PCI Diabetes mellitus type 2 with complications Diabetes mellitus, type II Diverticular disease Do not resuscitate status GERD (gastroesophageal reflux disease) Gout Hearing deficit History of colon polyps History of SCC (squamous cell carcinoma) of skin Hypertension Intercostal neuralgia Left ankle pain Left tibialis posterior tendonitis Myofascial pain On anticoagulant therapy warfarin daily On home oxygen therapy 2L N/C prn Osteoarthritis Restrictive airway disease Shoulder pain Sleep apnea cpap Tracheobronchopathia-osteochondroplastica Surgical History History of appendectomy History of bilateral cataract extraction History of bronchoscopy [place] of [place]/2019[place] [facility] [place]no stents--follows with Dr. Dickey History of carpal tunnel release of both wrists History of cholecystectomy History of colonoscopy with polypectomy History of esophagogastroduodenoscopy (EGD) History of total left knee replacement (TKR) History of total right knee replacement (TKR) (~2011) "R total knee arthroplasty in 2011" Hx of arthroscopic knee surgery (~2001) "bilat by Dr. Thomas in 2001" Family History Sister Family hx of colon cancer Brother Family history of esophageal cancer Other Heart disease Lung disease No family history of adverse response to anesthesia Social History Smoking Status: Former smoker Tobacco Type: Cigarettes Second Hand Exposure: No; Hx Alcohol Use: No Hx Substance Use: No Preferred Language: Kiswahili Communication Ability: Effective Visual Impairment: No Limitations Hearing Ability: Normal Pipe Bowls Paint Trimmer Required: No Beliefs That Will Affect Care: None Current Living Situation: Spouse Other Information That Helps Us Care for You: No Feels Safe at Home: Yes Safety Concerns: Feels Safe At This Time Assistive Devices: CPAP Review of Systems Review of Systems: ROS: Gen: Denies weakness, fevers, weight loss Eyes: No eye redness, or pain, no recent vision changes Resp: No SOB, no cough Cardio: No palpitations/irregular beats, no chest pain GI: As per HPI, otherwise negative : Denies pain on urination Skin: No jaundice, itching or new rashes Physical Exam Constitutional: WD/WN, vitals as above Eyes: PERRL, conjunctivae normal, anicteric sclerae ENMT: external ear and nose normal, oropharynx normal Neck: trachea midline, no thyromegaly Respiratory: normal respiratory effort, lungs clear to auscultation Cardiovascular: RRR, no murmur, no edema Gastrointestinal (Abdomen): normal bowel sounds, soft, nontender, no hepatosplenomegaly Musculoskeletal: no cyanosis or clubbing, extremities motor strength 5/5 Skin: normal turgor and + pallor (mild); no rashes, no lesions and no jaundice Neurologic: PERRL, EOMI, accommodation nl, no face palsy, no dysarthria Psychiatric: A+Ox3, euthymic affect Lymphatic: no cervical or axillary lymphadenopathy Results & Data ([facility]) Vital Signs (Past 12 Hours) Vital Signs Temp Pulse Resp BP Pulse Ox 03/24/21 07:30 36.5 C 90 16 123/69 96 03/24/21 03:27 36.2 C L 85 20 115/66 97 03/23/21 23:00 36.0 C L 83 17 126/69 95 Laboratory Results WBC 6, Hb 9.9, Hct 28, Plts 226, INR 1.3, Na 141, Cl 108, CO2 25, BUN 16, Cr 0.69, glucose 107. Diagnostic Findings CTAP w IV contrast on 03/23/21: 1. Diverticulosis of descending and sigmoid colon. Focal area of fat stranding surrounding portion of descending colon might represent developing diverticulitis. 2. Interval development of hypoattenuating lesion within body of the pancreas highly concerning for neoplastic process/adenocarcinoma. Further evaluation by oncology is recommended. 3. Interval enlargement of the cystic lesion within pancreatic tail since prior study. Findings are concerning for cystic neoplasm. Further evaluation with MRI of the abdomen/MRCP is suggested. 4. Stable lymphadenopathy as detailed above. 5. Slightly worsened pericardial effusion. Medications Administered Received Zosyn.
--- NOTE | 2021-03-24 10:12 | Anesthesiology Consultation ---
Date of Service March 24, 2021 Assessment & Plan Chart Review Chart Review: Acceptable Risk for Surgery Consults Requested none History Surgery Operation Date: 03/24/21 16:30 Proposed Procedures p Colonoscopy Dr Italo Puckett, DO Operation Date: 03/24/21 17:00 Proposed Procedures p Colonoscopy Dr Italo Puckett, DO Height/Weight Height: 5 ft 10 in Weight: 83.7 kg Allergies Allergy/AdvReac Type Severity Reaction Status Date / Time Sulfa (Sulfonamide Allergy Intermediate HIVES Verified 03/24/21 09:43 Antibiotics) Medications Home Medications Medication Instructions Recorded Confirmed Last Taken allopurinol 100 mg tablet 100 mg PO BID tab 03/08/19 03/23/21 03/23/21 (Zyloprim) bumetanide 1 mg tablet 0.5 mg PO QAM tab 03/08/19 03/23/21 03/23/21 calcium carbonate 600 mg calcium 600 mg PO BID tab 03/08/19 03/23/21 03/23/21 (1,500 mg) tablet (Calcium) magnesium oxide 400 mg (241.3 mg 400 mg PO HS tab 03/08/19 03/23/21 03/22/21 magnesium) tablet (MagOx) omeprazole 20 mg capsule,delayed 20 mg PO BID cap 03/08/19 03/23/21 03/23/21 release rosuvastatin 20 mg tablet (Crestor) 20 mg PO HS #30 tab 03/08/19 03/23/21 03/22/21 bkwggrwjmoe-anpaoebso-jmg C-Mn 2 cap PO HS 05/31/19 03/23/21 03/22/21 capsule (Glucosamine-Chondroitin Complx) omega 0-nmy-uie-fish oil 1,000 mg 1 cap PO BID 05/31/19 03/23/21 03/23/21 (120 mg-180 mg) capsule (Fish Oil) tobramycin 0.3 % eye drops (Tobrex) 4 drp OPHTHALMIC (EYE) UD PRN 05/31/19 03/23/21 Unknown spironolactone 25 mg tablet 12.5 mg PO QAM 06/26/19 03/23/21 03/23/21 (Aldactone) sildenafil (pulm.hypertension) 20 40 - 60 mg PO DIRECTED PRN 01/13/20 03/23/21 Unknown mg tablet (Revatio) warfarin 5 mg tablet (Jantoven) See Rx Instructions .ROUTE .COMPLEX 01/13/20 03/23/21 03/22/21 semaglutide 14 mg tablet (Rybelsus) 14 mg PO DAILYBB 04/16/20 03/23/21 03/23/21 desonide 0.05 % topical ointment 1 applic TOPICAL .COMPLEX PRN #15 g 09/17/20 03/23/21 Unknown chlorpheniramine maleate 4 mg 4 mg PO Q12H 30 Days #60 tab 01/27/21 03/23/21 03/23/21 tablet (Allergy Relief (chlorpheniramine)) fluticasone propionate 50 1 spray INTRANASAL BID #18.2 ml 01/27/21 03/23/21 03/23/21 mcg/actuation nasal spray,suspension (Flonase Allergy Relief) pseudoephedrine HCl 120 mg 120 mg PO BID 30 Days #60 tab 01/27/21 03/23/21 03/23/21 tablet,extended release (Sudafed 12 Hour) empagliflozin 25 mg tablet 25 mg PO QAM 03/23/21 03/23/21 03/23/21 (Jardiance) metformin 500 mg tablet,extended 1,000 mg PO BID 03/23/21 03/23/21 03/23/21 release 24 hr metoprolol succinate 100 mg 100 mg PO QAM 03/23/21 03/23/21 03/23/21 tablet,extended release 24 hr (Toprol XL) mupirocin 2 % topical ointment 1 applic TOP BID PRN 03/23/21 03/23/21 Unknown ([facility]) peg 400-propylene glycol 0.4 %-0.3 1 drp OPHTHALMIC (EYE) 5XD PRN 03/23/21 03/23/21 03/23/21 % eye drops (Systane (propylene glycol)) sodium chloride 0.65 % nasal spray 2 spray INTRANASAL QID PRN 03/23/21 03/23/21 Unknown aerosol (Saline Mist) tamsulosin 0.4 mg capsule (Flomax) 0.4 mg PO QAM 03/23/21 03/23/21 03/23/21 Active Medications Generic Name Dose Route Start Last Admin Trade Name Freq PRN Reason Stop Dose Admin Allopurinol 100 mg 03/23/21 21:00 03/24/21 08:13 Allopurinol 100 Mg Tab PO 04/22/21 20:59 100 mg BID FELIPE Administration Fluticasone Propionate 1 sprays 03/23/21 21:00 03/24/21 08:13 Fluticasone Propionate Na Spr 16 Gm Btl NA 04/22/21 20:59 1 sprays BID FELIPE Administration Pantoprazole Sodium 40 mg/ 10 mls @ 5 mls/min 03/23/21 21:00 03/24/21 08:13 Syringe IV 04/22/21 20:59 5 mls/min BID FELIPE Administration Lactated Ringer's 1,000 mls @ 125 mls/hr 03/23/21 16:16 03/24/21 08:12 Lr IV 03/24/21 16:15 125 mls/hr .Q8H FELIPE Administration Insulin Aspart 0 units 03/23/21 16:30 03/24/21 07:18 Insulin Aspart 100 Units/Ml 3 Ml Pen SC 04/22/21 16:29 Not Given ACHS FELIPE Magnesium Oxide 400 mg 03/23/21 21:00 03/23/21 21:06 Magnesium Oxide 400 Mg Tab PO 04/22/21 20:59 400 mg HS FELIPE Administration Miscellaneous 1 ea 03/24/21 00:00 03/24/21 08:08 Empagliflozin (Jardiance) 25 Mg Tablet~Order Awaiting Action N/A 04/23/21 00:00 Not Given QS FELIPE Miscellaneous 1 ea 03/24/21 00:00 03/24/21 08:08 Semaglutide (Rybelsus) 14mg Tablet~Order Awaiting Action N/A 04/23/21 00:00 Not Given QS FELIPE Miscellaneous 1 ea 03/24/21 00:00 03/24/21 08:08 Chlorpheniramine 4mg Tablet~Order Awaiting Action N/A 04/23/21 00:00 Not Given QS FELIPE Miscellaneous 1 ea 03/24/21 00:00 03/24/21 08:08 Pseudoephedrine 120mg Tablet~Order Awaiting Action N/A 04/23/21 00:00 Not Given QS FELIPE Miscellaneous 1 ea 03/24/21 00:00 03/24/21 08:08 Tobramycin Ophth Ofe'N 0.3%~Order Awaiting Action N/A 04/23/21 00:00 Not Given QS FELIPE Multivitamins/Minerals 1 tab 03/23/21 21:00 03/24/21 08:13 Calcium 600mg + Vit D 400 Iu Tab PO 04/22/21 20:59 1 tab BID FELIPE Administration Rosuvastatin Calcium 20 mg 03/23/21 21:00 03/23/21 21:07 Rosuvastatin Calcium 20 Mg Tab PO 04/22/21 20:59 20 mg HS FELIPE Administration Tamsulosin HCl 0.4 mg 03/24/21 09:00 03/24/21 08:13 Tamsulosin Hcl 0.4 Mg Cap PO 04/23/21 08:59 0.4 mg QAM FELIPE Administration NPO Date Last Intake of Fluids: 03/23/21 Time Last Intake of Fluids: 19:00 Date Last Intake of Solids: 03/22/21 Time Last Intake of Solids: 08:00 Past Medical History Medical History Arthralgia of right wrist Atrial fibrillation on warfarin Cervical pain Cervical radicular pain Chest wall pain Chronic cough Chronic diastolic heart failure echo 05/31/19 mod concentric LVH LVEF 55-60% grade II diastolic dysfunction Coronary artery disease cath 06/04/19 50% mid RCA, high grade stenosis posterior lateral branch, unsuccessful PCI Diabetes mellitus type 2 with complications Diabetes mellitus, type II Diverticular disease Do not resuscitate status GERD (gastroesophageal reflux disease) Gout Hearing deficit History of colon polyps History of SCC (squamous cell carcinoma) of skin Hypertension Intercostal neuralgia Left ankle pain Left tibialis posterior tendonitis Myofascial pain On anticoagulant therapy warfarin daily On home oxygen therapy 2L N/C prn Osteoarthritis Restrictive airway disease Shoulder pain Sleep apnea cpap Tracheobronchopathia-osteochondroplastica Past Family History Family History Sister Family hx of colon cancer Brother Family history of esophageal cancer Other Heart disease Lung disease No family history of adverse response to anesthesia Past Surgical History Surgical History History of appendectomy History of bilateral cataract extraction History of bronchoscopy History of cardiac cath (~05/2019) [place]2--[place] [place] and [place]/04/[place] [facility]no stents--follows with Dr. Dickey History of carpal tunnel release of both wrists History of cholecystectomy History of colonoscopy with polypectomy History of esophagogastroduodenoscopy (EGD) History of total left knee replacement (TKR) History of total right knee replacement (TKR) (~2011) "R total knee arthroplasty in 2011" Hx of arthroscopic knee surgery (~2001) "bilat by Dr. Thomas in 2001" Social History Smoking Status: Former smoker Hx Alcohol Use: No Hx Substance Use: No substance use type: does not use Physical Exam Vital Signs Last Vital Signs Temp 36.4 C L 03/24/21 09:45 Pulse 92 H 03/24/21 09:45 Resp 16 03/24/21 09:45 BP 117/80 03/24/21 09:45 Pulse Ox 97 03/24/21 09:45 Testing Laboratory Results 03/24/21 06:05 03/24/21 06:05 PT 13.0 Seconds (9.0-12.0) H 03/24/21 06:05 INR 1.3 (0.9-1.1) H 03/24/21 06:05 APTT 41.9 Seconds (21.0-31.0) H 03/23/21 11:31 Hemoglobin A1c 8.0 % (4.5-5.6) H 03/24/21 06:05 Blood Type A Positive 03/23/21 11:31 Antibody Screen NEGATIVE 03/23/21 11:31 03/24/21 07:11 POC Glucose 107 H
--- NOTE | 2021-03-24 11:03 | Communication Note ---
Date of Service: March 24, 2021 The patient underwent colonoscopy this morning. He was found to have evidence of diverticulosis in the left colon in addition to internal hemorrhoids. We did find 2 polyps which were removed today. The patient's hematochezia was most likely related to his internal hemorrhoids or perhaps a diverticular hemorrhage. Recommendations Advance diet as tolerated Hold anticoagulation for 72 hours due to polyp removal May resume baby aspirin today if needed Fiber supplementation 1 time daily in addition to MiraLAX 17 g/day indefinitely Repeat colonoscopy in 12 months please call with any questions or concerns, GI to sign off
--- NOTE | 2021-03-24 11:08 | GI REPORT ---
Patient Name: Jackelin Lopez Procedure Date: 03/24/2021 10:43 AM Date of : 1945 Admit Type: Inpatient Age: 76 Gender: Male Attending MD: Carissa Puckett DO Procedure: Colonoscopy Providers: Carissa Puckett DO Referring MD: Roscoe Kaminski Indications: Hematochezia Medicines: Monitored Anesthesia Care Complications: No immediate complications. Estimated blood loss: Minimal. Estimated Blood Loss: Estimated blood loss was minimal. Procedure: Pre-Anesthesia Assessment: - Prior to the procedure, a History and Physical was performed, and patient medications, allergies and sensitivities were reviewed. The patient's tolerance of previous anesthesia was reviewed. - The risks and benefits of the procedure and the sedation options and risks were discussed with the patient. All questions were answered and informed consent was obtained. - Patient identification and proposed procedure were verified prior to the procedure by the physician, the nurse and the rn transitional care. The procedure was verified in the procedure room. - Pre-procedure physical examination revealed no contraindications to sedation. - ASA Grade Assessment: III - A patient with severe systemic disease. - After reviewing the risks and benefits, the patient was deemed in satisfactory condition to undergo the procedure. - The anesthesia plan was to use monitored anesthesia care (MAC). - Immediately prior to administration of medications, the patient was re-assessed for adequacy to receive sedatives. - The heart rate, respiratory rate, oxygen saturations, blood pressure, adequacy of pulmonary ventilation, and response to care were monitored throughout the procedure. - The physical status of the patient was re-assessed after the procedure. After I obtained informed consent, the scope was passed under direct vision. Throughout the procedure, the patient's blood pressure, pulse, and oxygen saturations were monitored continuously. The Colonoscope was introduced through the anus and advanced to the terminal ileum. The colonoscopy was performed without difficulty. The patient tolerated the procedure well. The quality of the bowel preparation was fair. Findings: The perianal and digital rectal examinations were normal. Pertinent negatives include normal sphincter tone. The terminal ileum appeared normal. A 8 mm polyp was found in the cecum. The polyp was semi-sessile. The polyp was removed with a hot snare. Resection and retrieval were complete. To prevent bleeding after the polypectomy, one hemostatic clip was successfully placed (MR conditional). There was no bleeding at the end of the procedure. A 7 mm polyp was found in the sigmoid colon. The polyp was sessile. The polyp was removed with a hot snare. Resection and retrieval were complete. To prevent bleeding after the polypectomy, one hemostatic clip was successfully placed (MR conditional). There was no bleeding at the end of the procedure. Multiple small and large-mouthed diverticula were found in the sigmoid colon and descending colon. Internal hemorrhoids were found during retroflexion. The hemorrhoids were moderate. The exam was otherwise without abnormality. Impression: - Preparation of the colon was fair. - The examined portion of the ileum was normal. - One 8 mm polyp in the cecum, removed with a hot snare. Resected and retrieved. Clip (MR conditional) was placed. - One 7 mm polyp in the sigmoid colon, removed with a hot snare. Resected and retrieved. Clip (MR conditional) was placed. - Moderate diverticulosis in the sigmoid colon and in the descending colon. - Internal hemorrhoids. - The examination was otherwise normal. Recommendation: - [facility]. - Advance diet as tolerated today. - Await pathology results. - Repeat colonoscopy in 1 year for surveillance. - Use fiber, for example Citrucel, Fibercon, Konsyl or Metamucil. - Miralax 1 capful (17 grams) in 8 ounces of water PO daily. - Hematochezia likely related to diverticular bleeding or perhaps hemorrhoidal bleeding - May resume anticoagulation in 72 hours Carissa Puckett D.O. Carissa Puckett, 03/24/2021 11:07:45 AM This report has been signed electronically. Note Initiated On: 03/24/2021 10:43 AM Number of Addenda: 0 I attest to the content of the Intraoperative Record and orders documented therein, exceptions below {[id number]}
[2021-03-24] MEDS ORDERED: PROPOFOL IV EMULSION 10 MG/ML 20 ML VIAL IV ONE (11:12)
[2021-03-24] MEDS ORDERED: LIDOCAINE 2% 2 ML VIAL/AMP(20MG/ML) INFIL ONE (11:12)
--- NOTE | 2021-03-24 11:41 | Anesthesiology Progress Note ---
Date of Service March 24, 2021 Anesthesia Post Procedure Vital Signs Vital Signs: Temp Pulse Pulse Resp BP BP Pulse Ox 03/24/21 11:38 87 20 127/66 97 03/24/21 11:24 84 18 104/68 96 03/24/21 11:09 84 16 116/61 97 03/24/21 09:45 36.4 C L 92 H 16 117/80 97 03/24/21 08:00 83 03/24/21 07:30 36.5 C 90 16 123/69 96 03/24/21 03:27 36.2 C L 85 20 115/66 97 03/23/21 23:00 36.0 C L 83 17 126/69 95 03/23/21 19:40 36.8 C 77 19 148/84 H 96 03/23/21 15:45 36.6 C 84 20 115/78 95 03/23/21 14:43 84 22 98/66 L 97 03/23/21 14:42 84 22 98/66 L 97 03/23/21 13:00 86 18 120/77 03/23/21 12:30 93 H 23 126/72 03/23/21 12:00 96 H 20 112/63 03/23/21 11:46 99 H 17 102/60 Pulse Ox 03/24/21 11:38 03/24/21 11:24 03/24/21 11:09 03/24/21 09:45 03/24/21 08:00 96 03/24/21 07:30 03/24/21 03:27 03/23/21 23:00 03/23/21 19:40 03/23/21 15:45 03/23/21 14:43 03/23/21 14:42 03/23/21 13:00 03/23/21 12:30 03/23/21 12:00 03/23/21 11:46 Pain Intensity Abdomen: Pain Intensity: 2 Transfer of Care Handoff Completed per policy Notes Mental Status: alert / awake / arousable and participated in evaluation Patient Amnestic to Procedure: Yes Nausea / Vomiting: adequately controlled Pain: adequately controlled Airway Patency, RR, SpO2: stable & adequate BP & HR: stable & adequate Hydration State: stable & adequate Anesthetic Complications: no major complications apparent
[2021-03-24] MEDS ORDERED: PIPERACILLIN/TAZOBACTAM 3.375 GM in DEXTROSE 5% 100 ML IV ONE (14:30)
[2021-03-24 16:23] LABS: Hematocrit (blood only) 25.7 % (42-52); Hemoglobin 8.5 g/dL (14.0-18.0)
[2021-03-24] MEDS ORDERED: PIPERACILLIN/TAZOBACTAM 3.375 GM in DEXTROSE 5% 100 ML IV SCH (20:00)
--- NOTE | 2021-03-24 20:01 | Hospitalist Progress Note ---
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 Patient reports no further bleeding with bowel movements after admission. Baseline hemoglobin around 14-15, admitting hemoglobin 10.8, down to 8.5 today afternoon. 03/24 colonoscopy: 8 mm cecal polyp and 7 mm sigmoid colon polyp removed, moderate diverticulosis noted in sigmoid colon and descending colon, internal hemorrhoids noted. Otherwise normal exam. Continue with PPI twice daily, trend hemoglobin. Hold Coumadincan resume 03/27 Follow-up with hemoglobin at 10 PM and daily Transfuse for hemoglobin less than 7 GI on board: Advance diet as tolerated, repeat colonoscopy in 1 year for surveillance, hold anticoagulation for 72 hours due to polyp removal. Will resume baby aspirin tomorrow. (2) Coronary artery disease: Plan: -Follows with Dr. Dickey as an outpatient -Hold Bumex 0.5 mg daily, spironolactone 37.5 mg daily -Hold metoprolol succinate 100 mg for now -Resume once blood pressure stable. (3) Chronic diastolic heart failure: Plan: - Hx of such, monitor volume status, currently hypovolemic from acute blood loss, fluids as above - Last echo with 01/13/2021 showing moderate concentric LVH, abnormal septal motion consistent with LBBB, normal ventricular systolic function with an EF 60- 65%, trace mitral regurg, mild tricuspid regurg (4) Atrial fibrillation: Plan: -EKG reviewed - was in afib with rvr with HR in low 100s earlier today, now improved, HR in 80s. - Holding coumadin, resumed 03/27 - Rate control with metoprolol, holding for now due to GIB, rate improved with volume resuscitation. (5) Hypertension: Plan: -Monitor blood pressure, IVFs as above, holding antihypertensives (6) Diabetes mellitus, type II: Plan: -Last A1c was 7.8 on 10/01/2020 -ISS with Accu-Cheks ACHS -Hold semaglutide 14 mg p.o. daily (7) SRAVANTHI (obstructive sleep apnea): Plan: -Continue home CPAP Abnormal admitting CTAP - hypoattenuating lesion within body of the pancreas highly concerning for neoplastic process/adenocarcinoma; interval enlargement of cystic lesion within pancreatic tail since prior study concerning for cystic neoplasm. Further evaluation with MRI of the abdomen/MRCP suggested. -We will get oncology on board - sent out text for communication. DVT PPx - teds, scds, holding Coumadin secondary to GI bleed as above CODE: Full code Dispo: From home, likely to remain in the hospital x 1-2 days Admission and Anticipated Discharge Date Admission Date: March 23, 2021 Subjective Patient is lying in bed, NAD, on room air, no issues overnight. Patient reports feeling better. He denies any blood in bowel movement after hospital admission. No belly pain. Had colonoscopy done to the morning. Will advance diet as per GI recommendation as tolerated. Denies other review of symptoms. Physical Exam Physical Exam: GENERAL: Alert and oriented x3. NAD, on RA. HEENT: No pallor, no icterus. Pupils equal, round and reactive to light. Oral mucosa moist. NECK: No JVD, no neck masses. HEART: S1 and S2 heard. Regular rate and rhythm. No murmur, no gallop. RESPIRATORY SYSTEM: Normal AP diameter. No accessory muscle use. No wheezing, no crackles. ABDOMEN: Soft, bowel sounds present, nontender, no distention. CENTRAL NERVOUS SYSTEM: Alert and oriented x3. No facial droop. Speech is clear. Obeys simple commands. Moves extremities. EXTREMITIES: No edema, no erythema seen. Results & Data Results & Data ([facility]) Vital Signs (Past 12 Hours) Vital Signs Temp Pulse Pulse Resp BP Pulse Ox Pulse Ox 03/24/21 16:00 36.5 C 96 H 89 18 116/72 98 95 03/24/21 13:30 102 H 134/75 03/24/21 12:30 87 124/76 03/24/21 12:00 36.4 C L 86 16 117/68 97 03/24/21 11:38 87 20 127/66 97 03/24/21 11:24 84 18 104/68 96 03/24/21 11:09 84 16 116/61 97 03/24/21 09:45 36.4 C L 92 H 16 117/80 97 03/24/21 08:00 83 96 (1) Atrial fibrillation Atrial fibrillation type: unspecified Qualified Code(s): I48.91 - Unspecified atrial fibrillation
[2021-03-24] MEDS: MAGNESIUM OXIDE 400 MG TAB PO SCH (20:33)
[2021-03-24] MEDS: ROSUVASTATIN CALCIUM 20 MG TAB PO SCH (20:33)
[2021-03-24 22:33] LABS: Hematocrit (blood only) 24.1 % (42-52); Hemoglobin 8.1 g/dL (14.0-18.0)
[2021-03-25] MEDS: INSULIN ASPART 100 UNITS/ML 3 ML PEN SC SCH ×3 (04:23→11:55)
[2021-03-25 07:16] LABS: Hematocrit (blood only) 25.9 % (42-52); Hemoglobin 8.6 g/dL (14.0-18.0); Mean Corpuscular Hgb Conc 33.2 g/dL (32-36); Mean Corpuscular Volume 87.2 fL (80-100); Mean Platelet Volume 9.3 fL (7.4-10.4); Platelet Count 197 K/uL (130-400); RDW Coefficient of Variation 15.3 % (11.5-14.5); RDW Standard Deviation 48.4 fL (36.4-46.3); Red Blood Count 2.97 M/uL (4.7-6.1); White Blood Count 5.17 K/uL (4.8-10.8)
[2021-03-25 07:25] LABS: INR 1.2 (0.9-1.1); Prothrombin Time 12.4 Seconds (9.0-12.0)
[2021-03-25 07:59] LABS: Albumin Level 2.7 gm/dl (3.4-5.0); BUN Creatinine Ratio 15.6 (10-20); Bilirubin,Total 0.6 mg/dl (0.2-1); Calcium 8.4 mg/dl (8.5-10.1); Creatinine Clr Calc Pharmacy 113.8 ml/min; Est GFR (African American) 115.6 ml/min; Est GFR (Non-African American) 99.7 ml/min; Globulin 2.6 gm/dl (2.5-4.0); Potassium 3.5 mmol/L (3.5-5.1); Total Protein 5.3 gm/dl (6.4-8.2)
[2021-03-25] MEDS: TAMSULOSIN HCL 0.4 MG CAP PO SCH (08:20)
[2021-03-25] MEDS: PANTOprazole 40 MG in SYRINGE 0 ML IV SCH (08:20)
[2021-03-25] MEDS: FLUTICASONE PROPIONATE NA SPR 16 GM BTL SCH (08:20)
[2021-03-25] MEDS: allopurinoL 100 MG TAB PO SCH (08:21)
[2021-03-25] MEDS: CALCIUM 600MG + VIT D 400 IU TAB PO SCH (08:22)
[2021-03-25] MEDS ORDERED: AMOXICILLIN/CLAVULANATE 875 MG TAB PO SCH (12:15)
--- NOTE | 2021-03-25 17:19 | Discharge Summary ---
Date of Service March 25, 2021 Admission HPI Per Admitting Provider This is a 76-year-old male with PMHx of CAD, chronic diastolic heart failure, paroxysmal A. fib on Coumadin, HTN, HLD, DM type II, COPD, GERD, SRAVANTHI on CPAP who presents with acute onset of GI bleeding which began yesterday. He reports his bleeding started at 3:30 in the morning and lasted throughout the day nearly once every hour with loose stools and dark red blood with some clots. He reports there is bright red blood on paper when he wipes. His who is a nurse, present at bedside, reports that she checked him out approximately 1 week ago and he did have a small external hemorrhoid however it was not irritated or bleeding then. He admits to lightheadedness and dizziness today, as well as paleness in his face per . He was feeling weak and fatigued and so his brought him to the ER. His last colonoscopy was approximately 1 year ago per and was normal. This morning he took all of his antihypertensive medications and last night took Coumadin. Pt wears CPAP HS and has O2 at home if needed at 2 L, and wears it occasionally. He has been working with pulmonology to get post nasal drip to dry out, and has been taking Pseudafed and other nasal spray which have been working for his symptoms. Initially the patient was hypotensive in the ER with BP of 88/58, and was volume resuscitated Hemoglobin currently 10.8, baseline of 14, BUN elevated at 23, INR was 3.6 on admission and was reversed with 10 mg IV vitamin K. Admission Exam Per Admitting Provider General: awake, alert, no apparent distress, + pallor Head: Normocephalic, atraumatic ENT: PERRL, EOMI, no pharyngeal exudate, mucous membranes slightly dry Chest: Clear to auscultation, on room air, no adventitious breath sounds Cardiac: Irregularly irregular with heart rate in the 90s at bedside, no murmur, no JVD, normal peripheral pulses, good capillary refill Abdominal: NABS x 4 quadrants, soft, nondistended, + slightly tender to palpation in suprapubic region, no rebound or guarding Extremities: Normal inspection, no peripheral edema or erythema, calfs nontender to palpation Psych: Normal mood and affect Neuro: AAO x 3, strength intact bilaterally and rated 5/5, no motor deficits, speech is clear, no peripheral sensory deficits Principal Diagnosis Lower GI bleed -acute blood loss anemia Developing diverticulitis Abnormal pancreatic lesion on CTAP Supratherapeutic INR Discharge Exam GENERAL: Alert and oriented x3. NAD, on RA. HEENT: No pallor, no icterus. Pupils equal, round and reactive to light. Oral mucosa moist. NECK: No JVD, no neck masses. HEART: S1 and S2 heard. Regular rate and rhythm. No murmur, no gallop. RESPIRATORY SYSTEM: Normal AP diameter. No accessory muscle use. No wheezing, no crackles. ABDOMEN: Soft, bowel sounds present, nontender, no distention. CENTRAL NERVOUS SYSTEM: Alert and oriented x3. No facial droop. Speech is clear. Obeys simple commands. Moves extremities. EXTREMITIES: No edema, no erythema seen. Discharge Data Allergies Allergy/AdvReac Type Severity Reaction Status Date / Time Sulfa (Sulfonamide Allergy Intermediate HIVES Verified 03/24/21 09:43 Antibiotics) Consultations 03/23/21 13:32 ED Decision to Admit Stat 03/23/21 14:02 Consult Gastroenterology Routine Procedures Performed Operation Date: 03/24/21 16:30 Actual Procedures p Colonoscopy Polypectomy - Carissa Puckett DO Operation Date: 03/24/21 17:00 <No data on this case meets the specified criteria> Ordered Studies 03/23/21 11:24 CT abd pelvis IV con only Stat Hospital Course (1) Acute blood loss anemia: (2) Acute GI bleeding: Patient had multiple episodes of bright red blood per rectum 1 day SUPPLEMENTAL NURSE Patient INR was 3.6 on admission, received 10 mg of IV vitamin K. Patient reports no further bleeding with bowel movements after admission. Baseline hemoglobin around 14-15, admitting hemoglobin 10.8, down to 8.5 today afternoon. 03/24 colonoscopy: 8 mm cecal polyp and 7 mm sigmoid colon polyp removed, moderate diverticulosis noted in sigmoid colon and descending colon, internal hemorrhoids noted. Otherwise normal exam. Continue with PPI twice daily. Hold Coumadincan resume 03/27. Patient and his are well aware. While in hospital, hemoglobin remained stable between 8 and 8.5 GI on board: Advance diet as tolerated, repeat colonoscopy in 1 year for surveillance, hold anticoagulation for 72 hours due to polyp removal. (3) Diverticulitis: Admitting CTAP was suggestive of early diverticulitis, patient was started on IV antibiotics, during colonoscopy the likelihood of diverticulitis was ruled out. Upon stopping antibiotic, patient started to have lower belly pain again. Discharging patient on 14 days of Augmentin. Patient is to follow-up with GI doctor in 6 to 8 weeks time. Patient made aware. (4) Coronary artery disease: -Follows with Dr. Dickey as an outpatient Resume home medications (5) Chronic diastolic heart failure: - Hx of such, stable - Last echo with 01/13/2021 showing moderate concentric LVH, abnormal septal motion consistent with LBBB, normal ventricular systolic function with an EF 60- 65%, trace mitral regurg, mild tricuspid regurg (6) Atrial fibrillation: -EKG reviewed - was in afib with rvr with HR in low 100s earlier at admission, now improved, HR in 80s. - Holding coumadin, resume on 03/27. Patient and his aware. Resumed other home medications. (7) Hypertension: Hypertensive health while in hospital due to concerns of bleeding leading to hypovolemia, resumed upon discharge as he had a stable blood pressure. (8) Diabetes mellitus, type II: -Last A1c was 7.8 on 10/01/2020 Resume home medication upon discharge (9) SRAVANTHI (obstructive sleep apnea): -Continue home CPAP Abnormal admitting CTAP - hypoattenuating lesion within body of the pancreas highly concerning for neoplastic process/adenocarcinoma; interval enlargement of cystic lesion within pancreatic tail since prior study concerning for cystic neoplasm. Further evaluation with MRI of the abdomen/MRCP suggested. -CA 199 sent, discussed case with Dr. Terrell Garcia who recommends complete GI work-up for pancreatic tail mass with MRI of the abdomen, upper GI endoscopic ultrasound evaluation and biopsy of the pancreatic tail mass. Only then it will be determined whether he needs oncology care or not. DVT PPx - teds, scds, holding Coumadin secondary to GI bleed as above while in hospital. CODE: Full code Dispo: Getting discharged to home. Following instructions were communicated to the patient and his Leonila at the time of discharge: Since you have lower belly pain suggestive of diverticulitis consistent with imaging study during the stay, you are prescribed 14 days of antibiotic. Take it as prescribed. Consume soft diet, advance as you can tolerate without belly pain towards your regular diet. For your GI bleed, during the colonoscopy 2 polyps were removed. Start Coumadin on 03/27/2021. Get PT/INR blood test done on 03/29 and follow-up with Coumadin on 03/29-03/30 for close monitoring of your Coumadin dose. Also get your CBC done in 3 days of discharge. Follow-up with your PCP within a week time. Since admitting abdominal imaging showed abnormal lesion in your pancreas and given the background of on and off right upper quadrant pain according to your history, follow-up with GI doctor for further diagnostic work-up of pancreatic tail mass with MRI of the abdomen/upper GI endoscopic ultrasound and biopsy of pancreatic tail mass. Findings discussed with oncology (Dr. Terrell Garcia) and does not feel you need oncology appointment at this time. Follow-up with GI in 6 to 8 weeks timeyou need a repeat colonoscopy. Take medications as prescribed. Total Time Total Time Spent Total Time Spent (In Minutes): 55 Discharge Plan Discharge Items Patient Disposition: Home - Self-Care Reason For Visit: GIB Discharge Diagnosis: Lower GI bleed Developing diverticulitis Abnormal pancreatic lesion on CTAP Supratherapeutic INR Activity: Resume your previous activity Non-emergency contact: Primary Care Provider Call non-emergency contact if: you have any medication questions, your symptoms worsen, your pain is not controlled and you have a fever Follow-up/Referrals: Roscoe Kaminski MD [Primary Care Provider] - (Date & Time 04/01/2021 11:00 AM Provider Roscoe Kaminski III, MD Department [facility] ) Diet: Regular and Low Fiber Addtl Attending Provider Instructions: Since you have lower belly pain suggestive of diverticulitis consistent with imaging study during the stay, you are prescribed 14 days of antibiotic. Take it as prescribed. Consume soft diet, advance as you can tolerate without belly pain towards your regular diet. For your GI bleed, during the colonoscopy 2 polyps were removed. Start Coumadin on 03/27/2021. Get PT/INR blood test done on 03/29 and follow-up with Coumadin on 03/29-03/30 for close monitoring of your Coumadin dose. Also get your CBC done in 3 days of discharge. Follow-up with your PCP within a week time. Since admitting abdominal imaging showed abnormal lesion in your pancreas and given the background of on and off right upper quadrant pain according to your history, follow-up with GI doctor for further diagnostic work-up of pancreatic tail mass with MRI of the abdomen/upper GI endoscopic ultrasound and biopsy of pancreatic tail mass. Findings discussed with oncology (Dr. Terrell Garcia) and does not feel you need oncology appointment at this time. Follow-up with GI in 6 to 8 weeks timeyou need a repeat colonoscopy. Take medications as prescribed. Pending Studies at Discharge: Yes Studies:: CA 199 Stand-Alone Forms: My [facility] [employer], Smoking Cessation Medications and DC Order Prescriptions: New amoxicillin-pot clavulanate [Augmentin] 875-125 mg Tablet 1 tab PO BIDM 14 Days Qty: 28 RF: 0 Lactobacillus acidophilus 2 billion cell tablet 2,000 mmu cells PO BID 14 Days Qty: 28 RF: 0 Continued Rybelsus 14 mg tablet 14 mg PO DAILYBB RF: 0 desonide 0.05 % ointment 1 applic topical .COMPLEX PRN (Reason: itching) Qty: 15 RF: 0 rosuvastatin [Crestor] 20 mg tablet 20 mg PO HS Qty: 30 RF: 0 magnesium oxide [MagOx] 400 mg (241.3 mg magnesium) tablet 400 mg PO HS RF: 0 bumetanide 1 mg tablet 0.5 mg PO QAM RF: 0 omeprazole 20 mg capsule,delayed release(DR/EC) 20 mg PO BID RF: 0 calcium carbonate [Calcium 600] 600 mg calcium (1,500 mg) tablet 600 mg PO BID RF: 0 allopurinol [Zyloprim] 100 mg tablet 100 mg PO BID RF: 0 chlorpheniramine maleate [Allergy Relief(chlorpheniramn)] 4 mg tablet 4 mg PO Q12H 30 Days Qty: 60 RF: 3 pseudoephedrine HCl [Sudafed 12 Hour] 120 mg tablet extended release 120 mg PO BID 30 Days Qty: 60 RF: 3 fluticasone propionate [Flonase Allergy Relief] 50 mcg/actuation spray,suspension 1 spray intranasal BID Qty: 18.2 RF: 2 Glucosamine-Chondroitin Complx Capsule 2 cap PO HS RF: 0 tobramycin [Tobrex] 0.3 % Drops 4 drp ophthalmic (eye) UD PRN (Reason: as directed) RF: 0 omega 3-btz-woq-fish oil [Fish Oil] 1,000 mg (120 mg-180 mg) Capsule 1 cap PO BID RF: 0 spironolactone [Aldactone] 25 mg tablet 12.5 mg PO QAM RF: 0 warfarin [Jantoven] 5 mg Tablet See Rx Instructions .ROUTE .COMPLEX RF: 0 sildenafil (pulm.hypertension) [Revatio] 20 mg Tablet 40 - 60 mg PO DIRECTED PRN (Reason: NEEDED) RF: 0 metformin 500 mg tablet extended release 24 hr 1,000 mg PO BID RF: 0 sodium chloride [Saline Mist] 0.65 % Aerosol,[place] 2 spray INTRANASAL QID PRN (Reason: Congestion) RF: 0 Jardiance 25 mg tablet 25 mg PO QAM RF: 0 metoprolol succinate [Toprol XL] 100 mg tablet extended release 24 hr 100 mg PO QAM RF: 0 mupirocin [Centany] 2 % ointment 1 applic TOP BID PRN (Reason: .) RF: 0 tamsulosin [Flomax] 0.4 mg capsule 0.4 mg PO QAM RF: 0 Systane (propylene glycol) 0.4-0.3 % Drops 1 drp OPHTHALMIC (EYE) 5XD PRN (Reason: Dry Eyes) RF: 0 Discharge Orders: Discharge Order (Routine); Ordered 03/25/21 Ordered By: London Merrill/Other Patient Handouts: A1C, High Blood Sugar (Hyperglycemia), Hypoglycemia (Low Blood Sugar), Managing Type 2 Diabetes Admission Data Admit Date/Time: 03/23/21 14:02 Attending Provider: London Frazier Admit Provider: Ronel Bowles Primary Care Provider: Roscoe Kaminski Other Providers: Ronel Bowles ; Carissa Puckett Other Interventions: Discharge Summary Assessment (RN) Last Done: 03/25/21 13:02
== END 2021-03-25 15:26 | disposition home or self-care (01) | DRG 378 ==
LOC: ED 10:44 → 2S 14:02 → SUATTDRO 14:02 → 2S 14:43